=== PATIENT | male | born 1965 | race African-American/Black ===

== ENCOUNTER 2016-11-16 14:42 | Inpatient (IN) ==
--- NOTE | 2016-11-16 15:35 | Emergency Department Note ---
Disposition Clinical Impression: Cerebrovascular accident Qualifiers: CVA mechanism: unspecified Qualified Code(s): I63.9 - Cerebral infarction, unspecified Disposition: Admitted As Inpatient Condition: Fair Time of Disposition: 17:07 Neuro HPI - General Chief Complaint: ED Neuro Symptoms/Deficit Stated Complaint: Lightheaded, numbness/tingling R hand/leg Time Seen by Provider: 11/16/16 14:56 Source: patient, family Limitations: no limitations Nursing Notes Reviewed: Yes Vital Signs Reviewed: Yes - History of Present Illness HPI Narrative: Patient is a 50-year-old male who presents to [facility] ED with a chief complaint of right finger and right foot numbness. Rates he was pulling weeds outside at around 10 AM when he started feeling lightheaded. Also admits to cannabis use prior to this. States he then started feeling some numbness in his fingertips as well as toes on the right side. States he is not sure exactly when this started but it was somewhere between 10 AM and 12 AM. Denies any nausea, vomiting, fever or chills. Feels well otherwise. No weakness or difficulty with speech. Patient's spouse is with him and he does not want her to know that he smoked cannabis today. Patient states he has had 2 prior small strokes in the past and they presented similar to this. Patient did take a full dose aspirin today. Onset of Symptoms Date: 11/16/16 Symptom Onset Unknown: Yes History of same: Yes Severity: mild Quality: numbness Symptoms Improving: Yes Improves with: time Worsens with: none Context: gradual onset Associated symptoms: Reports: other (lightheaded). Denies: confusion, chest pain, cough, diaphoresis, fever/chills, headaches, loss of appetite, nausea/ vomiting, shortness of breath, syncope, weakness Treatments Prior to Arrival: Aspirin - Related Data Home Medications: Home Medications Medication Instructions Recorded Confirmed Albuterol Neb [Proventil Neb] 2.5 mg IH TID PRN 11/16/16 11/16/16 Albuterol Sulfate [Albuterol 2 puff IH Q4H PRN 11/16/16 11/16/16 Inhaler] Aspirin [Ecotrin] 325 mg PO DAILY 11/16/16 11/16/16 BuPROPion XL (24 HR) [Wellbutrin 150 mg PO DAILY 11/16/16 11/16/16 XL] Cetirizine HCl [Zyrtec] 10 mg PO DAILY 11/16/16 11/16/16 Clopidogrel [Plavix] 75 mg PO DAILY 11/16/16 11/16/16 Cyclobenzaprine [Flexeril] 10 mg PO HS PRN 11/16/16 11/16/16 Diltiazem HCl [Diltiazem 24Hr Cd] 240 mg PO DAILY 11/16/16 11/16/16 Fluticasone Propionate Nasal 100 mcg NS DAILY 11/16/16 11/16/16 [Flonase] Fluticasone/Salmeterol [Advair 2 each IH DAILY 11/16/16 11/16/16 100-50 Diskus] Glimepiride [Amaryl] 4 mg PO BID 11/16/16 11/16/16 Levothyroxine Sodium [Synthroid] 274 mcg PO QAM 11/16/16 11/16/16 Multivitamin [Multi-Day Vitamins] 1 each PO DAILY 11/16/16 11/16/16 [place]-3/Dha/Epa/Fish Oil [Fish Oil 1,000 mg PO DAILY 11/16/16 11/16/16 1,000 mg Softgel] Simvastatin [Zocor] 20 mg PO HS 11/16/16 11/16/16 Sitagliptin Phos/Metformin HCl 1 tab PO BID 11/16/16 11/16/16 [Janumet 50-1,000 mg Tablet] Tramadol HCl [Ultram] 50 mg PO Q4H PRN 11/16/16 11/16/16 Ubidecarenone [Co Q-10] 100 mg PO DAILY 11/16/16 11/16/16 Valsartan/Hydrochlorothiazide 1 each PO BID 11/16/16 11/16/16 [Diovan Hct 160-12.5 mg Tab] Allergies/Adverse Reactions: Allergies Allergy/AdvReac Type Severity Reaction Status Date / Time sulfamethoxazole Allergy Hives Verified 03/28/15 16:56 [From Bactrim] trimethoprim [From Bactrim] Allergy Hives Verified 03/28/15 16:56 atenolol AdvReac Palpitation Verified 03/28/15 16:56 s All systems ED: reviewed and negative except as stated. Past Medical History - Past Medical History Attestation: Yes The following information was validated with the patient. Source: patient Medical history: Reports: diabetes, hyperlipidemia, hypertension, thyroid disease Surgical history: Reports: other Psychiatric history: Reports: no psych history - Social History Smoking Status: Never smoker Smokeless Tobacco Status: No Alcohol use: Reports: occasionally Drug use: Reports: marijuana Physical Exam - General Limitations: no limitations General appearance: alert, in no apparent distress, obese - Head Head exam: atraumatic, normocephalic, normal inspection - Eye Eye exam: Present: normal appearance, PERRL, EOMI - ENT ENT exam: normal exam, normal oropharynx, mucous membranes moist - Neck Neck exam: Present: normal inspection, full ROM, trachea midline - Chest Chest inspection: Present: normal inspection, symmetric chest wall rise - Respiratory Respiratory exam: Present: normal lung sounds bilaterally - Cardiovascular Cardiovascular exam: Present: regular rate, normal rhythm, normal heart sounds - Abdominal Exam Abdominal exam: Present: soft, Non-Tender. Absent: tenderness, distention, guarding, rebound, rigidity - Extremities Exam Extremities exam: Present: normal inspection, full ROM. Absent: tenderness, pedal edema - Back Exam Back exam: Present: normal inspection, full ROM. Absent: tenderness - Neurological Exam Neurological exam: Present: alert - Psychiatric Psychiatric exam: Present: normal affect, normal mood - Skin Skin exam: Present: warm, dry, intact, normal color Course Course Narrative: Patient seen and examined. Lightheadedness and numbness in his right fingers and toes. No other neurologic deficits. NIH score of 1. Unknown exact last known well. Sometime between 10 AM and 12 AM. Patient is outside of the window for any TPA. With his just recent ingestion of cannabis at 9:30, suspect his symptoms could be caused from this. Will do full neurological evaluation. - Reevaluation(s) Reevaluation #1: Patient's labwork unremarkable. CT scan did show worsening small vessel ischemic changes that are worse compared to a CAT scan in 2009. An MRI is recommended. We will admit for CVA workup. I spoke with hospitalist Anant Chaves NP who has accepted patient for admission. Time: 17:06 Vital Signs Temperature 99.0 F 11/16/16 14:51 Pulse Rate 101 11/16/16 14:51 Respiratory Rate 18 11/16/16 14:51 Blood Pressure 162/95 11/16/16 14:51 O2 Sat by Pulse Oximetry 96 11/16/16 14:51 Temperature 99.0 F 11/16/16 14:51 Pulse Rate 67 11/16/16 16:35 Respiratory Rate 15 11/16/16 16:56 Blood Pressure 115/69 11/16/16 16:56 O2 Sat by Pulse Oximetry 93 11/16/16 16:35 Oxygen Delivery Oxygen Delivery Room Air Neuro Symptoms/Deficit - Medical Records Medical records reviewed: Yes I reviewed the patient's medical records. - Lab Data Lab results reviewed: Yes I reviewed the patient's lab results. Result diagrams: 11/16/16 15:35 11/16/16 15:35 Lab Results 11/16/16 11/16/16 11/16/16 Range/Units 14:48 15:35 15:35 WBC 7.4 (4.3-11.1) K/mcL RBC 5.10 (4.19-5.50) M/mcL Hgb 14.3 (12.9-16.9) g/dL Hct 44.0 (37.5-50.1) % MCV 86.3 (83.0-100.0) fL MCH 28.0 (28.0-33.3) pg MCHC 32.5 (31.6-35.5) g/dL RDW 12.6 (11.5-14.5) % Plt Count 248 (140-400) K/mcL MPV 9.6 (9.4-12.4) fL Immature Gran % 0.4 (0-4) % Seg Neutrophils % 69.0 % Lymphocytes % 20.2 % Monocytes % 8.2 % Eosinophils % 1.7 % Basophils % 0.5 % Neutrophils # 5.1 (1.6-8.9) K/mcL Lymphocytes # 1.5 (0.6-4.6) K/mcL Monocytes # 0.6 (0.0-1.3) K/mcL Eosinophils # 0.1 (0.0-0.6) K/mcL Basophils # 0.0 (0.0-0.2) K/mcL Immature Plt Fraction 2.9 (1.1-6.1) % PT 13.5 H (9.4-12.1) Seconds INR 1.2 APTT 30.8 (26.0-36.0) Seconds Sodium (136-145) mEq/L Potassium (3.5-4.5) mEq/L Chloride (98-109) mEq/L Carbon Dioxide (19-29) mEq/L BUN (8-26) mg/dL Creatinine (0.72-1.25) mg/dL Est GFR ( Amer) (> 60) Est GFR (Non-Af Amer) (> 60) BUN/Creatinine Ratio (6-26) Glucose (70-99) mg/dL POC Glucose 98 H (58-89) Calculated Osmolality (280-300) Calcium (8.6-10.8) mg/dL Troponin I (0-0.03) ng/mL 11/16/16 11/16/16 Range/Units 15:35 15:35 WBC (4.3-11.1) K/mcL RBC (4.19-5.50) M/mcL Hgb (12.9-16.9) g/dL Hct (37.5-50.1) % MCV (83.0-100.0) fL MCH (28.0-33.3) pg MCHC (31.6-35.5) g/dL RDW (11.5-14.5) % Plt Count (140-400) K/mcL MPV (9.4-12.4) fL Immature Gran % (0-4) % Seg Neutrophils % % Lymphocytes % % Monocytes % % Eosinophils % % Basophils % % Neutrophils # (1.6-8.9) K/mcL Lymphocytes # (0.6-4.6) K/mcL Monocytes # (0.0-1.3) K/mcL Eosinophils # (0.0-0.6) K/mcL Basophils # (0.0-0.2) K/mcL Immature Plt Fraction (1.1-6.1) % PT (9.4-12.1) Seconds INR APTT (26.0-36.0) Seconds Sodium 138 (136-145) mEq/L Potassium 4.0 (3.5-4.5) mEq/L Chloride 102 (98-109) mEq/L Carbon Dioxide 27 (19-29) mEq/L BUN 13 (8-26) mg/dL Creatinine 0.96 (0.72-1.25) mg/dL Est GFR ( Amer) > 60 (> 60) Est GFR (Non-Af Amer) > 60 (> 60) BUN/Creatinine Ratio 14 (6-26) Glucose 88 (70-99) mg/dL POC Glucose (58-89) Calculated Osmolality 286 (280-300) Calcium 9.8 (8.6-10.8) mg/dL Troponin I 0.00 (0-0.03) ng/mL - Radiology Data Radiology results reviewed: Yes I reviewed the patient's radiology results. Head CT 11/16/16 14:58 IMPRESSION: No hemorrhage or mass Mild periventricular and scattered frontal parietal white matter disease, likely due to small-vessel ischemic change, increased compared to prior study 2009. If acute on chronic disease is a clinical concern, MRI will need to be performed. D/ / Shlomo Brown MD / Shlomo Brown MD Interpreting Provider: Shlomo Brown MD Stroke Scale - Level of Consciousness LOC: Alert - LOC Questions LOC Questions: Answers both correctly - LOC Commands LOC Commands: Performs both correctly - Best Gaze Best Gaze: Normal - Visual Visual: No visual loss - Facial Palsy Facial Palsy: Normal - Motor Arms Motor Arm-Left: No drift for 10 seconds Motor Arm-Right: No drift for 10 seconds - Motor Legs Motor Leg-Left: No drift for 5 seconds Motor Leg-Right: No drift for 5 seconds - Limb Ataxia Limb Ataxia: Normal, No Ataxia - Sensory Sensory: Mild to moderate loss, "not as sharp" - Best Language Best Language: No aphasia - Dysarthria Dysarthria: Normal - Extinction and Inattention Extinction and Inattention: Normal - NIHSS Total Score NIHSS Total Score: 1 Critical Care Time Critical Care Time: Yes Total Critical Care Time: 35 Attestation: cc time managing cva Attestation Statement - Attestation Attestation: Patient was seen with resident physician. I reviewed the history, physical, assessment and plan, and agree with the findings. I also personally evaluated this patient and had [id number] time with this patient. 50-year-old male presents to the emergency department with lightheadedness and some numbness to the right hand. Patient states that he was pulling some weeds when he stood up and he had symptom onset. Patient became concerned because symptoms are similar to when he had several strokes in the past. He says he said 2-3 mild strokes previously. Patient also notes that his symptoms are confounded by the fact that he was smoking marijuana but would prefer his does not know. Typically however he says he does not get symptoms with marijuana and this is more consistent with his strokes in the past. Denies fevers chills shortness of breath chest pain or loss of consciousness. ED evaluation. Vital signs stable. ENT is unremarkable. Heart and lungs normal. Ab soft and nontender. 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 Neurologically patient is intact. I could not appreciate sensation difference from right to left when the patient was asked. Seems that this is stabilized. ED course CT scan head did reveal old strokes and what appears to be a potentially new area of concern though minimal. Labs did not reveal any acute abnormalities. We will admit the patient for further workup and treatment. Should be noted the patient was not a stroke protocol because symptoms are so minimal. He does not qualify for TPA or other emergent intervention. I agree with the resident physician assessment and plan.
[2016-11-16 15:44] LABS: Basophils % 0.5 %; Eosinophils # 0.1 K/mcL (0.0-0.6); Eosinophils % 1.7 %; Hemoglobin 14.3 g/dL (12.9-16.9); Immature Granulocytes % 0.4 % (0-4); Immature Platelets 2.9 % (1.1-6.1); Lymphocytes # 1.5 K/mcL (0.6-4.6); Lymphocytes % 20.2 %; Mean Corpuscular HGB Conc 32.5 g/dL (31.6-35.5); Mean Corpuscular Volume 86.3 fL (83.0-100.0); Mean Platelet Volume 9.6 fL (9.4-12.4); Monocytes # 0.6 K/mcL (0.0-1.3); Monocytes % 8.2 %; Neutrophils # 5.1 K/mcL (1.6-8.9); Platelet Count 248 K/mcL (140-400); Red Cell Distribution Width 12.6 % (11.5-14.5)
[2016-11-16 15:48] LABS: INR 1.2; Prothrombin Time 13.5 Seconds (9.4-12.1)
[2016-11-16 15:51] LABS: Activated Partial Thrombo Time 30.8 Seconds (26.0-36.0)
[2016-11-16 15:56] LABS: BUN/Creatinine Ratio 14 (6-26); Blood Urea Nitrogen 13 mg/dL (8-26); Calcium 9.8 mg/dL (8.6-10.8); Carbon Dioxide 27 mEq/L (19-29); Chloride 102 mEq/L (98-109); Glucose 88 mg/dL (70-99); Osmolality,Calculated 286 (280-300); Sodium 138 mEq/L (136-145); eGFR For African Americans > 60 (> 60); eGFR For Non-African Americans > 60 (> 60)
[2016-11-16 16:59] LABS: Amphetamine Screen,Urine Negative ng/mL (Cutoff=1000); Barbiturate Screen,Urine Negative ng/mL (Cutoff=200); Benzodiazepines Screen,Urine Negative ng/mL (Cutoff=200); Cannabinoid Screen,Urine Positive ng/mL (Cutoff = 50); Cocaine Screen,Urine Negative ng/mL (Cutoff= 300); Opiate Screen,Urine Negative ng/mL (Cutoff=300); Phencyclidine Screen,Urine Negative ng/mL (Cutoff=25)
[2016-11-16] MEDS ORDERED: Naloxone 0.4 MG/ML INJ IVP PRN (17:28)
[2016-11-16] MEDS ORDERED: Acetaminophen 325 MG TABLET PO PRN (17:28)
[2016-11-16] MEDS ORDERED: Albuterol 2.5 MG/3 ML NEBULIZER IH PRN (17:41)
[2016-11-16] MEDS ORDERED: traMADol 50 MG TABLET PO PRN (17:41)
--- NOTE | 2016-11-16 18:18 | Internal Med History&Physical ---
Date of Encounter: 11/16/16 Time of Encounter: 17:45 Assessment and Plan (1) TIA (transient ischemic attack) Current visit: Yes Status: Suspected Patient presenting with right hand numbness along with right foot numbness and weakness. Possible TIA. He does have a history of TIA and stroke. CT scan of the head shows chronic small vessel ischemic changes which have increased compared to prior study in 2009. [address] place patient in the hospital for observation. TIA workup including carotid Dopplers, 2-D echocardiogram and MRI of the brain. Place patient on telemetry. Moderate risk for complications. Qualifiers: Transient cerebral ischemia type: other Qualified Code(s): G45.8 - Other transient cerebral ischemic attacks and related syndromes (2) Essential hypertension Current visit: Yes Status: Chronic Uncontrolled. Resume home medications. Monitor vital signs closely. Adjust antihypertensive regimen accordingly. (3) Diabetes mellitus, type 2 Current visit: Yes Status: Chronic Patient with chronic diabetes mellitus type 2. We will place patient on diabetic diet and sliding scale insulin. Check A1c level. Qualifiers: Diabetes mellitus complication status: without complication Diabetes mellitus intermediate frame tender insulin use: without intermediate frame tender use Qualified Code(s): E11.9 - Type 2 diabetes mellitus without complications (4) Lightheadedness Current visit: Yes Status: Acute Check orthostatic blood pressure. Could be related to recent marijuana use. Internal Medicine - H&P: HPI Chief complaint: Right hand numbness and some weakness in right leg Admitted From: Emergency Dept Plans for Post Hospital Care: Home History of present illness: Mr. Harrison is a 50 year old male patient with a history of prior strokes and mini strokes presented to the ER with complaints of lightheadedness followed by numbness in his right hand along with some weakness in his right foot. He was feeling fine when he woke up this morning. He apparently smoked some marijuana and was working in his garden wearing weeds when he felt lightheaded. This lasted for a few seconds and then he began to have some numbness in his right hand. The patient does have a history of diabetes but has no history of diabetic neuropathy. She says that the numbness spread from medial 3 fingers down to his entire hand. It is still present currently. It is associated with some mild weakness. He also has some numbness in his right foot along with some weakness. He denies any visual changes. No speech deficits. No facial droop. Past Med Surg Social Fam HX - Past Medical History Attestation: Yes The following information was validated with the patient. Source: patient Medical history: diabetes, hyperlipidemia, hypertension, thyroid disease Psychiatric history: no psych history - Past Surgical History Surgical History: other - Social History Smoking Status: Never smoker Smokeless Tobacco Status: No Alcohol use: occasionally Drug use: marijuana - Additional Family History Additional family history: Reviewed and found to be noncontributory at this time Internal Medicine - H&P: Meds Albuterol Neb [Proventil Neb] 2.5 mg IH TID PRN 11/16/16 [History] Albuterol Sulfate [Albuterol Inhaler] 2 puff IH Q4H PRN 11/16/16 [History] Aspirin [Ecotrin] 325 mg PO DAILY 11/16/16 [History] BuPROPion XL (24 HR) [Wellbutrin XL] 150 mg PO DAILY 11/16/16 [History] Cetirizine HCl [Zyrtec] 10 mg PO DAILY 11/16/16 [History] Clopidogrel [Plavix] 75 mg PO DAILY 11/16/16 [History] Cyclobenzaprine [Flexeril] 10 mg PO HS PRN 11/16/16 [History] Diltiazem HCl [Diltiazem 24Hr Cd] 240 mg PO DAILY 11/16/16 [History] Fluticasone Propionate Nasal [Flonase] 100 mcg NS DAILY 11/16/16 [History] Fluticasone/Salmeterol [Advair 100-50 Diskus] 2 each IH DAILY 11/16/16 [History] Glimepiride [Amaryl] 4 mg PO BID 11/16/16 [History] Levothyroxine Sodium [Synthroid] 274 mcg PO QAM 11/16/16 [History] Multivitamin [Multi-Day Vitamins] 1 each PO DAILY 11/16/16 [History] [place]-3/Dha/Epa/Fish Oil [Fish Oil 1,000 mg Softgel] 1,000 mg PO DAILY 11/16/16 [History] Simvastatin [Zocor] 20 mg PO HS 11/16/16 [History] Sitagliptin Phos/Metformin HCl [Janumet 50-1,000 mg Tablet] 1 tab PO BID [History] Tramadol HCl [Ultram] 50 mg PO Q4H PRN 11/16/16 [History] Ubidecarenone [Co Q-10] 100 mg PO DAILY 11/16/16 [History] Valsartan/Hydrochlorothiazide [Diovan Hct 160-12.5 mg Tab] 1 each PO BID [History] Allergies sulfamethoxazole [From Bactrim] Allergy (Verified 03/28/15 16:56) Hives trimethoprim [From Bactrim] Allergy (Verified 03/28/15 16:56) Hives atenolol Adverse Reaction (Verified 03/28/15 16:56) Palpitations All Systems PM: A 10-system review of systems was performed and is negative for pertinent findings except as documented above in the HPI. - Constitutional Constitutional: no chills, no fever(s), no night sweats - EENT Eyes: no change in vision, no discharge, no pain, no photophobia Ears: no ear discharge, no ear pain, no tinnitus Nose, mouth and throat: no dysphagia, no nasal discharge, no neck pain, no sore throat - Cardiovascular Cardiovascular ROS IM: no chest pain, no diaphoresis, no dyspnea, no lightheadedness, no palpitations, no syncope - Respiratory Respiratory: no cough, no dyspnea, no wheezing, no excessive phlegm production - Gastrointestinal Gastrointestinal: no abdominal pain, no diarrhea, no hematemesis, no hematochezia, no melena, no nausea, no vomiting - Musculoskeletal Musculoskeletal ROS IM: no numbness, no tingling - Neurological Neurological ROS: focal weakness, numbness, no confusion, no convulsions, no tingling, no tremor(s) - Hematologic/Lymphatic Hematologic/Lymphatic: no easy bruising - Constitutional Vitals: Temp Pulse Resp BP Pulse Ox 98.6 F 103 18 138/90 93 11/16/16 17:31 11/16/16 17:31 11/16/16 17:31 11/16/16 17:31 11/16/16 17:31 General appearance: Present: cooperative, A&O X 3, pleasant, obese, answers questions appropriately - Eye Eye exam: Present: EOMI, PERRL, conjuntiva pink, sclera anicteric - Neck Neck exam general surgery: Present: supple, trachea midline. Absent: lymphadenopathy - Respiratory Respiratory exam: Present: CTAB. Absent: accessory muscle use, rales, rhonchi, wheezes - Cardiovascular Cardiovascular exam: Present: RRR, +S1, +S2. Absent: diastolic murmur, gallop, rubs, systolic murmur - GI/Abdominal GI/Abdominal exam: Present: normal bowel sounds, soft, no peritoneal signs. Absent: distended, tenderness - Extremities Exam Extremities exam: Present: warm, radial pulses palpable and symetrical. Absent : calf tenderness, cyanotic, pedal edema - Neurological Exam Neurological exam: Present: CN II-XII intact, oriented X3, no focal deficits, strengths equal and symetr throughout. Absent: facial droop, speech deficit Additional comments: Numbness over his palmar surface of right hand - Skin Skin exam: Present: dry, intact Internal Med - H&P Results - Labs CBC & Chem 7: 11/16/16 15:35 11/16/16 15:35
[2016-11-16] MEDS: hydroCHLOROthiazide 25 MG TABLET PO SCH (20:40)
[2016-11-16] MEDS: Valsartan 160 MG TABLET PO SCH (20:59)
[2016-11-16] MEDS ORDERED: Valsartan 160 MG TABLET PO SCH (21:00)
[2016-11-16] MEDS ORDERED: D5% in Water 1,000 ML IVC PRN (21:23)
[2016-11-16] MEDS ORDERED: *HR* Dextrose 50 % in Water (Syg) 50 ML SYRINGE IVP PRN (21:23)
[2016-11-16] MEDS ORDERED: Dextrose Gel 15 GM PO PRN ×2 (21:23)
[2016-11-16] MEDS: Insulin LISPRO 300 UNITS/3 ML VIAL SQ SCH (22:09)
[2016-11-17 04:29] LABS: Chol/HDL Ratio 3.8 (0-4.9)
[2016-11-17] MEDS: Insulin LISPRO 300 UNITS/3 ML VIAL SQ SCH ×4 (07:28→21:07)
[2016-11-17] MEDS ORDERED: Budesonide/Formoterol 80/4.5 MDI IH SCH (09:00)
[2016-11-17] MEDS: Diltiazem CD (24hr) 240 MG CAPSULE PO SCH (09:53)
[2016-11-17] MEDS: Aspirin Enteric Coated 325 MG Tablet PO SCH (09:53)
[2016-11-17] MEDS: Valsartan 160 MG TABLET PO SCH ×2 (09:54→19:59)
[2016-11-17] MEDS: Loratadine 10 MG TABLET PO SCH (09:54)
[2016-11-17] MEDS: hydroCHLOROthiazide 25 MG TABLET PO SCH ×2 (09:55→19:59)
[2016-11-17] MEDS: Multivit/Ca/Min/Fe/FA 1 TAB TABLET PO SCH (09:57)
[2016-11-17] MEDS: (Ubidecarenone [Co Q-10] 100 MG) PO SCH (09:57)
[2016-11-17] MEDS: (Omega-3/Dha/Epa/Fish Oil [Fish Oil 1,000 Mg Softgel]) PO SCH (10:00)
[2016-11-17] MEDS: BuPROPion XL (24 HR) 150 MG TABLET PO SCH (10:03)
[2016-11-17] MEDS: Fluticasone Propionate Nasal 50 MCG/SPRAY BOTTLE NS SCH (10:29)
[2016-11-17] MEDS ORDERED: Perflutren Lipid Microsphere 1.3 ML in 0.9 % Sodium Chloride 8.7 ML IVP ONE (12:19)
--- NOTE | 2016-11-17 17:03 | Neurology - Consult Note ---
Date of Encounter: 11/17/16 Time of Encounter: 17:00 Assessment and Plan (1) Cerebrovascular accident Current Visit: Yes Status: Acute Patient has developed another episode of small vessel lacunar infarct, this time involving the left pontine region, causing right sided paresthesia. This is still small vessel etiology. Will keep him on Aspirin 325mg and Plavix 75mg daily for secondary stroke prevention. Pursue aggressive risk factor modification. Weight loss advised. Continue statin therapy. Patient is also advised to follow up with PCP, outpatient sleep stud recommended as well. Echocardiography showed normal LVEF of 60%, no regional wall motion abnormality , no significant valcular disease. Carotid artery duppler study pending. Qualifiers: CVA mechanism: unspecified Qualified Code(s): I63.9 - Cerebral infarction, unspecified History of Present Illness Chief complaint: right finger and leg numbness HPI: Mr. Harrison is a 50 year old male with PMH significant for recurrent small vessel lacunar infarct, HTN, DM, morbid obesity who presented with acute onset of numbness, tingling to the right hand and leg. This occurred at about 10am this morning. started feeling numb to the right finger and leg. Has had similar presentation in the past. Has has diagnosis of lacunar infarct during 2009 and 2012 both diagnosed as having lacunar infarct. Has been taking aspirin 81mg and Plavix 75mg daily. No speech difficulty. No facial weakness or numbness. Past Med Surg Social Fam HX - Past Medical History Medical history: diabetes, hyperlipidemia, hypertension, thyroid disease Psychiatric history: no psych history - Past Surgical History Surgical History: other - Social History Smoking Status: Never smoker Smokeless Tobacco Status: No Alcohol use: occasionally Drug use: marijuana - Family History Mother Living Status: Age at : 61 Cause of : ms Hx Family Cardiac Disorders: Yes Hx Family Respiratory Disorders: No Hx Family Cancer: Yes Hx Family GI Disorders: No Hx Family Genitourinary Disorders: No Hx Family Endocrine Disorder: Yes Hx Family Musculoskeletal Disorders: No Hx Family Neuromuscular Disorders: Yes Hx Family Neurologic Disorders: Yes Hx Family HEENT Disorders: No Hx Family Autoimmune Disorders: No Hx Family Reproductive Disorders: No Hx Family Psychosocial Disorders: No Hx Family Medical Disorders: No Medications and Allergies Albuterol Neb [Proventil Neb] 2.5 mg IH TID PRN 11/16/16 [History] Albuterol Sulfate [Albuterol Inhaler] 2 puff IH Q4H PRN 11/16/16 [History] Aspirin [Ecotrin] 325 mg PO DAILY 11/16/16 [History] BuPROPion XL (24 HR) [Wellbutrin XL] 150 mg PO DAILY 11/16/16 [History] Cetirizine HCl [Zyrtec] 10 mg PO DAILY 11/16/16 [History] Clopidogrel [Plavix] 75 mg PO DAILY 11/16/16 [History] Cyclobenzaprine [Flexeril] 10 mg PO HS PRN 11/16/16 [History] Diltiazem HCl [Diltiazem 24Hr Cd] 240 mg PO DAILY 11/16/16 [History] Fluticasone Propionate Nasal [Flonase] 100 mcg NS DAILY 11/16/16 [History] Fluticasone/Salmeterol [Advair 100-50 Diskus] 2 each IH DAILY 11/16/16 [History] Glimepiride [Amaryl] 4 mg PO BID 11/16/16 [History] Levothyroxine Sodium [Synthroid] 274 mcg PO QAM 11/16/16 [History] Multivitamin [Multi-Day Vitamins] 1 each PO DAILY 11/16/16 [History] [place]-3/Dha/Epa/Fish Oil [Fish Oil 1,000 mg Softgel] 1,000 mg PO DAILY 11/16/16 [History] Simvastatin [Zocor] 20 mg PO HS 11/16/16 [History] Sitagliptin Phos/Metformin HCl [Janumet 50-1,000 mg Tablet] 1 tab PO BID [History] Tramadol HCl [Ultram] 50 mg PO Q4H PRN 11/16/16 [History] Ubidecarenone [Co Q-10] 100 mg PO DAILY 11/16/16 [History] Valsartan/Hydrochlorothiazide [Diovan Hct 160-12.5 mg Tab] 1 each PO BID [History] Allergies sulfamethoxazole [From Bactrim] Allergy (Verified 03/28/15 16:56) Hives trimethoprim [From Bactrim] Allergy (Verified 03/28/15 16:56) Hives atenolol Adverse Reaction (Verified 03/28/15 16:56) Palpitations All Systems: A 10-system review of systems was performed and is negative for pertinent findings except as documented above in the HPI. Physical Examination - Vital Signs Vital Signs: Initial Vital Signs Temp Pulse Resp BP Pulse Ox 99.0 F 101 18 162/95 96 11/16/16 14:51 11/16/16 14:51 11/16/16 14:51 11/16/16 14:51 11/16/16 14:51 - Constitutional General appearance: comfortable - Neurologic Sensorimotor examination: intact Detailed motor examination: full strength in all major muscle groups Motor examination - right side: 5/5: deltoids, biceps, triceps, wrist flexion, wrist extension, camp nurse, hip flexors, tibialis Anterior, quadriceps, toe extension (EHL), plantarflexion Motor examination - left side: 5/5: deltoids, biceps, triceps, wrist flexion, wrist extension, hip flexors, camp nurse, quadriceps, tibialis Anterior, toe extension (EHL), plantarflexion Detailed sensory examination: intact Posture: other (none) Reflexes: Biceps: 1+, Triceps: 1+, Brachioradialis: 1+, Patella: 1+, Achilles: 1 + Mental Status Examination: awake, alert, oriented to person, oriented to place, oriented to time, follows commands appropriately, answers questions appropriately, no agnosia, no aphasia, no aproxia Cranial nerve examination: PERRL, EOMI, visual mclaughlin intact, corneal reflexes brisk symmetrically, sensory to face intact, mastication intact, no facial asymmetry is present, no dysarthria, hearing is intact symmetrically, soft palate elevates bilaterally upon phonation, gag reflex intact, flexes SCM and trapezius muscles symmetrically with full power, tongue protrudes midline, no atrophy or facial fasiculations present Results - Laboratory Findings CBC and BMP: 11/16/16 15:35 11/16/16 15:35 Abnormal lab findings: Abnormal lab results PT 13.5 Seconds (9.4-12.1) H 11/16/16 15:35 POC Glucose 109 (58-89) H 11/17/16 16:33 Triglycerides 233 mg/dL (< 150) H 11/17/16 03:51 VLDL Cholesterol, Calc 47 mg/dL (< 31) H 11/17/16 03:51 HDL Cholesterol 31 mg/dL (40-59) L 06/26/17 03:51 U Marijuana (THC) Screen Positive ng/mL (Cutoff = 50) H 11/16/16 16:41 Consult Discharge Plan - Plan Referrals: Maggie Navarro MD [Primary Care Provider] -
--- NOTE | 2016-11-17 17:39 | Internal Med Progress Note ---
Date of Encounter: 11/17/16 Time of Encounter: 09:00 - Assessment and plan (1) Cerebrovascular accident Current Visit: Yes Status: Acute Assessment and plan: Patient has prior CVA 2. Symptoms include right hand and foot paresthesia and right leg weakness. Onset one day ago. Patient is still able to ambulate. There is no facial involvement and no speech or vision changes. He has been seen by neurology. We need aggressive risk factor reduction. Patient will continue his aspirin 325 mg of Plavix 75 mg daily patient should start an aggressive weight loss and exercise program. He will also continue his statin therapy. Echocardiogram showed normal LVEF 60% and no regional wall motion abnormality, no significant vascular disease. Carotids normal bilaterally. Brain MRI 11/16/16 17:38 IMPRESSION: 1. Acute 8 mm infarct within the dorsal aspect of the jennifer just anterolateral to the expected location of the left medial longitudinal fasciculus. 2. No acute intracranial hemorrhage. 3. Multiple remote infarcts within the periventricular and deep white matter of both hemispheres. 4. Remote hemorrhage within the subcortical white matter of the right frontal lobe. D/ / 11/17/2016 09:01:50 Carlos Griggs MD / [email or web address] Interpreting Provider: Carlos Griggs MD Qualifiers: CVA mechanism: unspecified Qualified Code(s): I63.9 - Cerebral infarction, unspecified (2) Essential hypertension Current Visit: Yes Status: Chronic Assessment and plan: Chronic. Well controlled in inpatient setting. Continue home medications. (3) Diabetes mellitus, type 2 Current Visit: Yes Status: Chronic Assessment and plan: A1c was 7.6 one month ago. Continue Accu-Cheks before meals at bedtime sliding scale insulin. Continue diabetic diet. 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 - Time Spent With Patient less than 15 minutes - Subjective Interval history: Patient was seen and examined at 9 AM. He reports feeling lightheaded when bending over yesterday. He says he had the last 3 fingers on his right hand were numb and tingly, this was concerning for him because these are the same symptoms he had his prior CVA. Prior CVA was in 2009, one prior to that, as well. The symptoms lasted approximately one day, and now his whole hand and his right foot or tingling and he reports right leg weakness as well. He has no discernible weakness on physical exam. His strength are equal bilaterally both upper and lower extremities. His speech is clear, there is no nystagmus, there is no sensory loss. Patient was seen by Dr. Cardenas and will continue his aspirin and Plavix. Echo was normal, carotids were within normal limits. Will watch patient overnight and most likely discharge in the morning. - Constitutional Vitals: Temp Pulse Resp BP Pulse Ox 98.4 F 97 16 113/74 94 11/17/16 15:32 11/17/16 15:32 11/17/16 15:32 11/17/16 15:32 11/17/16 15:32 General appearance: Present: cooperative, A&O X 3, pleasant, obese, answers questions appropriately - Head Head exam: Present: normal inspection - Eye Eye exam: Present: EOMI, normal appearance, conjuntiva pink. Absent: nystagmus - ENT ENT exam: Present: mucous membranes moist, normal exam - Neck Neck exam general surgery: Present: normal inspection. Absent: lymphadenopathy , tenderness - Respiratory Respiratory exam: Present: decreased breath sounds, CTAB. Absent: chest wall tenderness, rales, respiratory distress, rhonchi, stridor, wheezes - Cardiovascular Cardiovascular exam: Present: RRR, +S1, +S2. Absent: diastolic murmur, systolic murmur - GI/Abdominal GI/Abdominal exam: Present: distended, normal bowel sounds, soft. Absent: hepatomegaly, tenderness - Extremities Exam Extremities exam: Present: normal capillary refill, warm, radial pulses palpable and symetrical. Absent: pedal edema, tenderness - Neurological Exam Neurological exam: Present: alert, normal gait, oriented X3, no focal deficits, strengths equal and symetr throughout. Absent: motor sensory deficit, pronater drift, facial droop, speech deficit - Skin Skin exam: Present: dry, normal color, warm. Absent: rash Internal Medicine: Result - Labs CBC & Chem 7: 11/16/16 15:35 11/16/16 15:35 - ABG Interpretation ABG results: PT/INR, D-dimer PT 13.5 Seconds (9.4-12.1) H 11/16/16 15:35 Consult Discharge Plan - Plan Referrals: Maggie Navarro MD [Primary Care Provider] -
[2016-11-18] MEDS: BuPROPion XL (24 HR) 150 MG TABLET PO SCH (08:01)
[2016-11-18] MEDS: hydroCHLOROthiazide 25 MG TABLET PO SCH (08:02)
[2016-11-18] MEDS: Aspirin Enteric Coated 325 MG Tablet PO SCH (08:03)
[2016-11-18] MEDS: Loratadine 10 MG TABLET PO SCH (08:03)
[2016-11-18] MEDS: Valsartan 160 MG TABLET PO SCH (08:03)
[2016-11-18] MEDS: Diltiazem CD (24hr) 240 MG CAPSULE PO SCH (08:03)
[2016-11-18] MEDS: Multivit/Ca/Min/Fe/FA 1 TAB TABLET PO SCH (08:03)
[2016-11-18] MEDS: Fluticasone Propionate Nasal 50 MCG/SPRAY BOTTLE NS SCH (08:03)
[2016-11-18] MEDS: Insulin LISPRO 300 UNITS/3 ML VIAL SQ SCH ×2 (08:04→12:27)
[2016-11-18 08:34] LABS: BUN/Creatinine Ratio 11 (6-26); Blood Urea Nitrogen 13 mg/dL (8-26); Calcium 10.4 mg/dL (8.6-10.8); Carbon Dioxide 27 mEq/L (19-29); Chloride 102 mEq/L (98-109); Glucose 170 mg/dL (70-99); Osmolality,Calculated 292 (280-300); Potassium 4.2 mEq/L (3.5-4.5); Sodium 139 mEq/L (136-145); eGFR For African Americans > 60 (> 60); eGFR For Non-African Americans > 60 (> 60)
[2016-11-18 09:01] LABS: Basophils # 0.1 K/mcL (0.0-0.2); Basophils % 0.7 %; Eosinophils # 0.3 K/mcL (0.0-0.6); Eosinophils % 3.4 %; Hematocrit 49.8 % (37.5-50.1); Immature Granulocytes % 0.6 % (0-4); Lymphocytes # 2.6 K/mcL (0.6-4.6); Lymphocytes % 26.1 %; Mean Corpuscular HGB Conc 33.7 g/dL (31.6-35.5); Mean Corpuscular Hemoglobin 29.1 pg (28.0-33.3); Mean Corpuscular Volume 86.3 fL (83.0-100.0); Mean Platelet Volume 10.3 fL (9.4-12.4); Monocytes # 0.8 K/mcL (0.0-1.3); Monocytes % 7.9 %; Neutrophils # 6.2 K/mcL (1.6-8.9); Platelet Count 286 K/mcL (140-400); Red Blood Count 5.77 M/mcL (4.19-5.50); Red Cell Distribution Width 12.7 % (11.5-14.5); Segmented Neutrophils % 61.3 %
[2016-11-18 09:02] LABS: Hemoglobin 16.8 g/dL (12.9-16.9)
[2016-11-18] MEDS: (Ubidecarenone [Co Q-10] 100 MG) PO SCH (10:25)
[2016-11-18] MEDS: (Omega-3/Dha/Epa/Fish Oil [Fish Oil 1,000 Mg Softgel]) PO SCH (10:25)
--- NOTE | 2016-11-18 12:59 | Neurology Progress Note ---
Date of Encounter: 11/18/16 Time of Encounter: 12:57 Assessment and Plan (1) Cerebrovascular accident Current Visit: Yes Status: Acute Continue Aspirin 325mg and plavix 75mg daily. Risk factor modification. Continue statin therapy, weight loss and sleep study as an outpatient via PCP Qualifiers: CVA mechanism: unspecified Qualified Code(s): I63.9 - Cerebral infarction, unspecified Subjective Principal diagnosis: CVA Interval history: Patient seen and examined. Patient is asymptomatic. Completed carotid artery duplex and preliminary reports was read normal study. Objective - Constitutional Vitals: Temp Pulse Resp BP Pulse Ox 97.6 F 104 16 109/72 94 11/18/16 07:07 11/18/16 07:07 11/18/16 07:07 11/18/16 07:07 11/18/16 08:00 - Neurological Exam Sensorimotor examination: Present: intact Motor Examination: Present: full strength in all major muscle groups Motor examination - left side: 5/5: deltoids, biceps, triceps, wrist flexion, wrist extension, hip flexors, senior ruby developer, quadriceps, tibialis Anterior, toe extension (EHL), plantarflexion Sensation intact: Present: intact Posture: Present: other (none) Mental Status Examination: Present: awake, alert, oriented to person, oriented to place, oriented to time, follows commands appropriately, answers questions appropriately, no agnosia, no aphasia, no aproxia Cranial nerve examination: Present: PERRL, EOMI, visual mclaughlin intact, corneal reflexes brisk symmetrically, sensory to face intact, mastication intact, no facial asymmetry is present, no dysarthria, hearing is intact symmetrically, soft palate elevates bilaterally upon phonation, gag reflex intact, flexes SCM and trapezius muscles symmetrically with full power, tongue protrudes midline, no atrophy or facial fasiculations present Results - Laboratory Findings CBC and BMP: 11/18/16 07:33 11/18/16 07:33 Abnormal lab findings: Abnormal lab results RBC 5.77 M/mcL (4.19-5.50) H 11/18/16 07:33 PT 13.5 Seconds (9.4-12.1) H 11/16/16 15:35 Glucose 170 mg/dL (70-99) H 11/18/16 07:33 POC Glucose 177 (58-89) H 11/17/16 20:22 Triglycerides 233 mg/dL (< 150) H 11/17/16 03:51 VLDL Cholesterol, Calc 47 mg/dL (< 31) H 11/17/16 03:51 HDL Cholesterol 31 mg/dL (40-59) L 11/17/16 03:51 U Marijuana (THC) Screen Positive ng/mL (Cutoff = 50) H 11/16/16 16:41 Consult Discharge Plan - Plan Referrals: Brigette Luna CNP [Advanced Practice Nurse] - 11/26/16 8:20 am Maggie Navarro MD [Primary Care Provider] -
--- NOTE | 2016-11-18 14:24 | Discharge Summary ---
Date of Encounter: 11/18/16 Time of Encounter: 13:00 - Discharge Diagnosis (1) Cerebrovascular accident Priority: Primary Status: Acute Comments: Patient with acute infarct to jennifer. Patient with continued numbness of his right hand and foot however no focal neurological weakness is present. Seen and evaluated by occupational and physical therapy both to fumes from had no needs. Neurology with recommendation of continued aggressive risk factor modification. Qualifiers: CVA mechanism: unspecified Qualified Code(s): I63.9 - Cerebral infarction, unspecified (2) Essential hypertension Priority: Secondary Status: Chronic Comments: Mildly hypertensive upon arrival, normotensive on day of discharge. Patient is on Diovan on at home, recommend continued daily blood pressure checks at home, keeping a log, and following up outpatient. 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 use Qualified Code(s): E11.9 - Type 2 diabetes mellitus without complications (4) Lightheadedness Priority: Primary Status: Resolved (5) Morbid obesity with BMI of 40.0-44.9, adult Priority: Secondary Status: Chronic Comments: Lifestyle changes - Discharge Medications Home Medications: Albuterol Neb [Proventil Neb] 2.5 mg IH TID PRN 11/16/16 [History] Albuterol Sulfate [Albuterol Inhaler] 2 puff IH Q4H PRN 11/16/16 [History] Aspirin [Ecotrin] 325 mg PO DAILY 11/16/16 [History] BuPROPion XL (24 HR) [Wellbutrin Xl] 150 mg PO DAILY 11/16/16 [History] Cetirizine HCl [Zyrtec] 10 mg PO DAILY 11/16/16 [History] Clopidogrel [Plavix] 75 mg PO DAILY 11/16/16 [History] Cyclobenzaprine [Flexeril] 10 mg PO HS PRN 11/16/16 [History] Diltiazem HCl [Diltiazem 24Hr Cd] 240 mg PO DAILY 11/16/16 [History] Fluticasone Propionate Nasal [Flonase] 100 mcg NS DAILY 11/16/16 [History] Fluticasone/Salmeterol [Advair 100-50 Diskus] 2 each IH DAILY 11/16/16 [History] Glimepiride [Amaryl] 4 mg PO BID 11/16/16 [History] Levothyroxine Sodium [Synthroid] 274 mcg PO QAM 11/16/16 [History] Multivitamin [Multi-Day Vitamins] 1 each PO DAILY 11/16/16 [History] [place]-3/Dha/Epa/Fish Oil [Fish Oil 1,000 mg Softgel] 1,000 mg PO DAILY 11/16/16 [History] Simvastatin [Zocor] 20 mg PO HS 11/16/16 [History] Sitagliptin Phos/Metformin HCl [Janumet 50-1,000 mg Tablet] 1 tab PO BID [History] Tramadol HCl [Ultram] 50 mg PO Q4H PRN 11/16/16 [History] Ubidecarenone [Co Q-10] 100 mg PO DAILY 11/16/16 [History] Valsartan/Hydrochlorothiazide [Diovan Hct 160-12.5 mg Tab] 1 each PO BID [History] Allergies/Adverse Reactions: Allergies sulfamethoxazole [From Bactrim] Allergy (Verified 03/28/15 16:56) Hives trimethoprim [From Bactrim] Allergy (Verified 03/28/15 16:56) Hives atenolol Adverse Reaction (Verified 03/28/15 16:56) Palpitations Date of admission: 11/17/16 13:14 Primary care physician: Maggie Navarro, Consults: 11/17/16 11:57 Consult to Neurology [CONS] Routine Consulting Provider: Neurology [facility] Reason for Consult: Infarct on MRI. Pt has CVA symptoms. Prior history. Time Notified: 11:58 Call Completed: Yes 11/17/16 11:59 Consult to Occupational Therapy [CONS] Routine Comment: Evaluate, develop and implement POC Reason for Consult: CVA. Evaluation Consult to Physical Therapy [CONS] Routine Comment: Evaluate, develop and implement POC Reason for Consult: CVA. Evaluation Discharging clinician: Siria Paz Anticipated date of discharge: 11/18/16 - Patient Status Disposition: Home, Self-Care Condition: Fair Functional capacity at discharge: independent ambulation Overall status at discharge: patient is progressing back to baseline - Discharge Instructions Instructions: Diabetes Mellitus Type 2 in Adults (DC), Ischemic Stroke (DC) Follow Up With: Brigette Luna CNP [Advanced Practice Nurse] - 11/26/16 8:20 am Maggie Navarro MD [Primary Care Provider] - Additional Instructions: Follow-up with primary care provider as scheduled - Diet and Activity Activity: increase activity as tolerated Diet: diabetic diet, low fat, low cholesterol, low salt diet Hospital course: Mr. Harrison is a 50 year old male with past medical history of prior CVAs, diabetes , hyperlipidemia, hypertension, hypothyroidism, marijuana abuse, morbid obesity. Patient presented to the emergency department chief complaint of lightheadedness that was followed by numbness in his right hand as well as weakness in his right foot. Patient stating he was fine when he woke up in the morning then he proceeded to smoke marijuana and then when he went out to work in his garden, he started to feel lightheaded. Patient stating lightheadedness lasted for a few minutes but then he began to have numbness in his right hand. No history of diabetic neuropathy. Patient stating the numbness spread from the medial 3 fingers down to his entire hand and was associated with mild weakness. Patient also endorsed numbness on his right foot along with some mild weakness. Patient denied any visual changes or speech deficits or facial asymmetry. Workup in the emergency department unremarkable. Head CT negative. Patient was initially borderline hypertensive. He was admitted to the hospitalist service for further evaluation and management. Brain MRI revealing acute infarct to dorsal aspect of the jennifer as well as multiple remote infarcts and a remote hemorrhage to the right frontal lobe. Carotid duplex negative. Echocardiogram unremarkable with ejection fraction of 60% and mild diastolic dysfunction. Neurology was brought on board who recommended continuing his current medical management with aspirin, Plavix, statin as well as aggressive risk factor modification including weight loss and abstinence from marijuana. He was normotensive on day of discharge. He was seen and evaluated by occupational and physical therapy both of whom surmise he had no needs. 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 He had an upright and steady gait. He was discharged home in stable condition with close outpatient follow-up recommended. ITS Impressions Head CT 11/16/16 14:58 IMPRESSION: No hemorrhage or mass Mild periventricular and scattered frontal parietal white matter disease, likely due to small-vessel ischemic change, increased compared to prior study 2009. If acute on chronic disease is a clinical concern, MRI will need to be performed. D/ / Shlomo Brown MD / Shlomo Brown MD Interpreting Provider: Shlomo Brwon MD Brain MRI 11/16/16 17:38 IMPRESSION: 1. Acute 8 mm infarct within the dorsal aspect of the jennifer just anterolateral to the expected location of the left medial longitudinal fasciculus. 2. No acute intracranial hemorrhage. 3. Multiple remote infarcts within the periventricular and deep white matter of both hemispheres. 4. Remote hemorrhage within the subcortical white matter of the right frontal lobe. D/ / 11/17/2016 09:01:50 Carlos Griggs MD / [email or web address] Interpreting Provider: Carlos Griggs MD 11/17/16 14:48 - Vascular [facility] [id number] : 1965 Patient Age: 50 Carotid duplex bilateral: normal bilateral Echo with saline and imaging enhancement agent impressions: Technically suboptimal due to body habitus. LVEF 60%. Normal LV chamber size and function. Mild concentric left ventricular hypertrophy. Mild left ventricular diastolic dysfunction. Normal right ventricular structure and function. Suboptimal image quality, but no obvious significant PFO with agitated saline contrast. Unable to estimate RVSP due to lack of TR jet. No obvious significant valvular dysfunction. - Time Spent with Patient Total time spent providing and/or coordinating discharge services: - Constitutional Vitals: Temp Pulse Resp BP Pulse Ox 97.6 F 104 16 109/72 94 11/18/16 07:07 11/18/16 07:07 11/18/16 07:07 11/18/16 07:07 11/18/16 08:00 General appearance: Present: cooperative, A&O X 3, morbidly obese, pleasant, answers questions appropriately - Head Head exam: Present: atraumatic, normocephalic - Eye Eye exam: Present: PERRL, conjuntiva pink, sclera anicteric Pupils: Present: PERRL - Neck Neck exam general surgery: Present: supple, trachea midline. Absent: lymphadenopathy - Respiratory Respiratory exam: Present: CTAB. Absent: accessory muscle use, rales, respiratory distress, rhonchi, wheezes - Cardiovascular Cardiovascular exam: Present: RRR, +S1, +S2. Absent: diastolic murmur, gallop, rubs, systolic murmur - GI/Abdominal GI/Abdominal exam: Present: normal bowel sounds, soft, no peritoneal signs. Absent: distended, tenderness - Extremities Exam Extremities exam: Present: warm, radial pulses palpable and symetrical. Absent : calf tenderness, cyanotic, pedal edema - Neurological Exam Neurological exam: Present: alert, CN II-XII intact, normal gait, oriented X3, no focal deficits, strengths equal and symetr throughout. Absent: pronater drift, facial droop, speech deficit - Expanded Neurological Exam Neurological exam expanded: Present: protecting the airway Patient oriented to: Present: person, place, time Speech: Present: fluid speech Cranial Nerves: EOM's intact PM: Normal, gag reflex PM: Normal Sensory exam: LE 2 point discrimination: Abnormal Right Neuro motor strength exam: LUE: 5, RUE: 5, LLE: 5, RLE: 5 Coma Scale Eye Opening: Spontaneous Coma Scale Motor Response: Obeys Commands Coma Scale Verbal Response: Oriented Coma Scale Total: 15 - Skin Skin exam: Present: dry, intact, normal color, warm - Stroke Contraindication Rehab Services Not Assessed: Returned to Prior Level of Function
[2016-11-18 17:10] VITALS: BP 126/67
--- NOTE | 2016-11-18 19:16 | Carotid Imaging Report ---
Carotid Duplex Patient Name:Esteban Harrison Order Number:[id number] Procedure Date:11/17/2016 Date:1965Age:50 yrs Gender:Male Location: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 Recommendations: After imaging the patient returned to their room. Findings Carotid Duplex: Right: The right proximal common carotid artery has a PSV of 60 cm/s and a EDV of 10 cm/s. The right mid common carotid artery has a PSV of 75 cm/s and a EDV of 17 cm/s. The right distal common carotid artery has a PSV of 53 cm/s and a EDV of 13 cm/s. The right bifurcation has a PSV of 40 cm/s and a EDV of 12 cm/s. The right proximal internal carotid artery has a PSV of 46 cm/s and a EDV of 19 cm/s. The right mid internal carotid artery has a PSV of 68 cm/s and a EDV of 28 cm/s. The right distal internal carotid artery has a PSV of 91 cm/s and a EDV of 34 cm/s. The right eca has a PSV of 69 cm/s and a EDV of 13 cm/s. The right vertebral artery has a PSV of 29 cm/s and a EDV of 10 cm/s. Left: The left proximal common carotid artery has a PSV of 81 cm/s and a EDV of 18 cm/s. The left mid common carotid artery has a PSV of 70 cm/s and a EDV of 15 cm/s. The left distal common carotid artery has a PSV of 66 cm/s and a EDV of 15 cm/s. The left bifurcation has a PSV of 56 cm/s and a EDV of 14 cm/s. The left proximal internal carotid artery has a PSV of 71 cm/s and a EDV of 29 cm/s. The left mid internal carotid artery has a PSV of 81 cm/s and a EDV of 23 cm/s. The left distal internal carotid artery has a PSV of 81 cm/s and a EDV of 32 cm/s. The left eca has a PSV of 69 cm/s and a EDV of 13 cm/s. The left vertebral artery has a PSV of 34 cm/s and a EDV of 9 cm/s. Carotid Results Right PSV EDV Assessment Proximal CCA 60 10 Normal Mid CCA 75 17 Normal Distal CCA 53 13 Normal Bifurcation 40 12 Normal Proximal ICA 46 19 Normal Mid ICA 68 28 Normal Distal ICA 91 34 Normal ECA 69 13 Normal Vertebral Artery 29 10 Normal Left PSV EDV Assessment Proximal CCA 81 18 Normal Mid CCA 70 15 Normal Distal CCA 66 15 Normal Bifurcation 56 14 Normal Proximal ICA 71 29 Normal Mid ICA 81 23 Normal Distal ICA 81 32 Normal ECA 69 13 Normal Vertebral Artery 34 9 Normal Ratio's Right ICA/CCA Ratio: 1.20 ICA/CCA Values: 91/75 Left ICA/CCA Ratio: 1.20 ICA/CCA Values: 81/70 Updated by Rubin Donovan MD on 11/18/2016 7:09:22 PM electronically signed on 11/18/2016 7:09:45 PM with status of Final
== END 2016-11-18 15:18 | disposition home or self-care (01) | DRG 65 ==
LOC: 3BNU 14:42 → EMEROO 14:42 → 3BNU 17:11 → SUATTDRO 11-17 13:14
PROVIDERS: ADMIT Nurse Practitioner Family; ATTEND Nurse Practitioner Family

== ENCOUNTER 2016-12-08 01:48 | Inpatient (IN) ==
[2016-12-08] MEDS ORDERED: 0.9 % Sodium Chloride 1,000 ML IVC ONE (02:01)
--- NOTE | 2016-12-08 02:06 | Emergency Department Note ---
Disposition Clinical Impression: Right sided weakness Disposition: Admitted As Inpatient Condition: Fair Neuro HPI - General Stated Complaint: "rule out stroke" Time Seen by Provider: 12/08/16 01:49 Source: patient Mode of arrival: wheelchair Limitations: no limitations Nursing Notes Reviewed: Yes Vital Signs Reviewed: Yes - History of Present Illness HPI Narrative: Patient presents to the ED with the chief complaint of right-sided weakness. Patient reports he has been evaluated previously for CVA. After medical record review. Patient was admitted last month for CVA. States he is having similar symptoms again today. Reports that he went to bed at 9 PM and woke up around 1 to 1:30 and felt that his right upper and right lower extremity were weak. States the last time he was just having numbness and tingling, but this time he is having numbness, tingling and weakness. No trouble speaking or noticeable facial asymmetry. No headaches, fevers, chest pain, shortness of breath, nausea , vomiting or abdominal pain. No new pain or swelling in his legs. He reports he has been out of one of his diabetes medications for his blood sugar has been well under control. Reports that he has been compliant with aspirin and Plavix - Related Data Home Medications: Home Medications Medication Instructions Recorded Confirmed Albuterol Neb [Proventil Neb] 2.5 mg IH TID PRN 11/16/16 12/08/16 Albuterol Sulfate [Albuterol 2 puff IH Q4H PRN 11/16/16 12/08/16 Inhaler] Aspirin [Ecotrin] 325 mg PO DAILY 11/16/16 12/08/16 BuPROPion XL (24 HR) [Wellbutrin 150 mg PO DAILY 11/16/16 12/08/16 Xl] Cetirizine HCl [Zyrtec] 10 mg PO DAILY 11/16/16 12/08/16 Clopidogrel [Plavix] 75 mg PO DAILY 11/16/16 12/08/16 Cyclobenzaprine [Flexeril] 10 mg PO HS PRN 11/16/16 12/08/16 Diltiazem HCl [Diltiazem 24Hr Cd] 240 mg PO DAILY 11/16/16 12/08/16 Fluticasone Propionate Nasal 100 mcg NS DAILY 11/16/16 12/08/16 [Flonase] Fluticasone/Salmeterol [Advair 2 each IH DAILY 11/16/16 12/08/16 100-50 Diskus] Glimepiride [Amaryl] 4 mg PO BID 11/16/16 12/08/16 Levothyroxine Sodium [Synthroid] 274 mcg PO QAM 11/16/16 12/08/16 Multivitamin [Multi-Day Vitamins] 1 each PO DAILY 11/16/16 12/08/16 [place]-3/Dha/Epa/Fish Oil [Fish Oil 1,000 mg PO DAILY 11/16/16 12/08/16 1,000 mg Softgel] Simvastatin [Zocor] 20 mg PO HS 11/16/16 12/08/16 Sitagliptin Phos/Metformin HCl 1 tab PO BID 11/16/16 12/08/16 [Janumet 50-1,000 mg Tablet] Tramadol HCl [Ultram] 50 mg PO Q4H PRN 11/16/16 12/08/16 Ubidecarenone [Co Q-10] 100 mg PO DAILY 11/16/16 12/08/16 Valsartan/Hydrochlorothiazide 0.5 each PO BID 11/16/16 12/08/16 [Diovan Hct 160-12.5 mg Tab] Allergies/Adverse Reactions: Allergies Allergy/AdvReac Type Severity Reaction Status Date / Time sulfamethoxazole Allergy Hives Verified 12/08/16 02:06 [From Bactrim] trimethoprim [From Bactrim] Allergy Hives Verified 12/08/16 02:06 atenolol AdvReac Palpitation Verified 12/08/16 02:06 s Constitutional: Denies: fever Eyes: Denies: vision change Cardiovascular: Denies: chest pain Gastrointestinal: Denies: abdominal pain, vomiting Musculoskeletal: Denies: back pain Neurological: Reports: weakness, numbness, paresthesias. Denies: headache, abnormal gait, vertigo Psychiatric: Denies: anxiety, depression Endocrine: Denies: fatigue Past Medical History - Past Medical History Attestation: Yes The following information was validated with the patient. Source: patient Medical history: Reports: diabetes, hyperlipidemia, hypertension, thyroid disease Surgical history: Reports: other Psychiatric history: Reports: no psych history - Social History Smoking Status: Never smoker Smokeless Tobacco Status: No Alcohol use: Reports: occasionally Drug use: Reports: marijuana Physical Exam - General Limitations: no limitations General appearance: alert, in no apparent distress - Head Head exam: atraumatic, normocephalic, normal inspection - Eye Eye exam: Present: normal appearance, PERRL, EOMI - ENT ENT exam: normal exam, normal oropharynx, mucous membranes moist - Neck Neck exam: Present: normal inspection, full ROM, trachea midline - Chest Chest inspection: Present: normal inspection, symmetric chest wall rise - Respiratory Respiratory exam: Present: normal lung sounds bilaterally - Cardiovascular Cardiovascular exam: Present: regular rate, normal rhythm, normal heart sounds - Abdominal Exam Abdominal exam: Present: soft, Non-Tender. Absent: tenderness, distention, guarding, rebound, rigidity - Extremities Exam Extremities exam: Present: normal inspection, full ROM. Absent: tenderness, pedal edema - Neurological Exam Neurological exam: Present: alert, oriented X3, CN II-XII intact - Expanded Neurological Exam Patient oriented to: Present: person, place, time Speech: Present: fluid speech Cranial nerves: EOM function (II, III, IV, ): Normal, facial sensation (V): Normal, facial palsy (VII): Normal, spinal accessory function (XI): Normal, tongue deviation (XII): Normal Cerebellar function: finger to nose: Normal Cerebellar function: normal gait Motor strength - LUE: 5/5 Motor strength - RUE: 5/5 (Patient has minimal difference as compared to the left, but is still 5 out of 5) Motor strength - LLE: 5/5 Motor strength - RLE: 5/5 (Patient has minimal difference as compared to the left, but is still 5 out of 5) Upper motor neuron exam: nova neglect: Absent bilaterally, pronator drift: Absent bilaterally, sensory extinction: Absent bilaterally Sensory exam upper extremity: light touch: Normal Sensory exam lower extremity: light touch: Normal DTR: patellar (L): 2+, patellar (R): 2+ Coma Scale Eye Opening: Spontaneous Coma Scale Motor Response: Obeys Commands Coma Scale Verbal Response: Oriented Coma Scale Total: 15 - Psychiatric Psychiatric exam: Present: normal affect, normal mood - Skin Skin exam: Present: warm, dry, intact, normal color Course - Reevaluation(s) Reevaluation #1: Patient evaluated at bedside. His NIH is 0. He has very slight weakness of his right upper and right lower extremity compared to his left however, his strength is still 5 out of 5. There are no signs of cerebellar dysfunction or a disturbance. Stroke alert was not called at this time due to his normal NIH and minimal symptoms. However, the patient will still receive a workup for CVA and will be admitted to the hospital again. If his renal function can tolerate it. He will receive a CTA of his head prior to admission due to delay in ability to obtain an MRI. Time: 02:04 Vital Signs Temperature 97.8 F 12/08/16 01:53 Pulse Rate 99 12/08/16 01:53 Respiratory Rate 20 12/08/16 01:53 Blood Pressure 149/105 12/08/16 01:53 O2 Sat by Pulse Oximetry 95 12/08/16 01:53 Temperature 98.1 F 12/08/16 04:11 Pulse Rate 92 12/08/16 04:11 Respiratory Rate 18 12/08/16 04:11 Blood Pressure 127/85 12/08/16 04:11 O2 Sat by Pulse Oximetry 92 12/08/16 04:11 Oxygen Delivery Oxygen Delivery Room Air Neuro Symptoms/Deficit - Medical Records Medical records reviewed: Yes I reviewed the patient's medical records. - Lab Data Lab results reviewed: Yes I reviewed the patient's lab results. Result diagrams: 12/08/16 02:06 12/08/16 02:06 Lab Results 12/08/16 12/08/16 12/08/16 Range/Units 01:56 02:06 02:06 WBC 7.7 (4.3-11.1) K/mcL RBC 4.93 (4.19-5.50) M/mcL Hgb 13.9 (12.9-16.9) g/dL Hct 42.9 (37.5-50.1) % MCV 87.0 (83.0-100.0) fL MCH 28.2 (28.0-33.3) pg MCHC 32.4 (31.6-35.5) g/dL RDW 12.5 (11.5-14.5) % Plt Count 232 (140-400) K/mcL MPV 9.8 (9.4-12.4) fL Immature Gran % 0.8 (0-4) % Seg Neutrophils % 63.9 % Lymphocytes % 23.1 % Monocytes % 8.4 % Eosinophils % 3.0 % Basophils % 0.8 % Neutrophils # 4.9 (1.6-8.9) K/mcL Lymphocytes # 1.8 (0.6-4.6) K/mcL Monocytes # 0.7 (0.0-1.3) K/mcL Eosinophils # 0.2 (0.0-0.6) K/mcL Basophils # 0.1 (0.0-0.2) K/mcL PT 12.1 (9.4-12.1) Seconds INR 1.1 APTT 28.8 (26.0-36.0) Seconds Sodium (136-145) mEq/L Potassium (3.5-4.5) mEq/L Chloride (98-109) mEq/L Carbon Dioxide (19-29) mEq/L BUN (8-26) mg/dL Creatinine (0.72-1.25) mg/dL Est GFR ( Amer) (> 60) Est GFR (Non-Af Amer) (> 60) BUN/Creatinine Ratio (6-26) Glucose (70-99) mg/dL POC Glucose 122 H (58-89) Calculated Osmolality (280-300) Calcium (8.6-10.8) mg/dL Troponin I (0-0.03) ng/mL 12/08/16 12/08/16 Range/Units 02:06 02:06 WBC (4.3-11.1) K/mcL RBC (4.19-5.50) M/mcL Hgb (12.9-16.9) g/dL Hct (37.5-50.1) % MCV (83.0-100.0) fL MCH (28.0-33.3) pg MCHC (31.6-35.5) g/dL RDW (11.5-14.5) % Plt Count (140-400) K/mcL MPV (9.4-12.4) fL Immature Gran % (0-4) % Seg Neutrophils % % Lymphocytes % % Monocytes % % Eosinophils % % Basophils % % Neutrophils # (1.6-8.9) K/mcL Lymphocytes # (0.6-4.6) K/mcL Monocytes # (0.0-1.3) K/mcL Eosinophils # (0.0-0.6) K/mcL Basophils # (0.0-0.2) K/mcL PT (9.4-12.1) Seconds INR APTT (26.0-36.0) Seconds Sodium 139 (136-145) mEq/L Potassium 4.1 (3.5-4.5) mEq/L Chloride 103 (98-109) mEq/L Carbon Dioxide 27 (19-29) mEq/L BUN 15 (8-26) mg/dL Creatinine 0.99 (0.72-1.25) mg/dL Est GFR ( Amer) > 60 (> 60) Est GFR (Non-Af Amer) > 60 (> 60) BUN/Creatinine Ratio 15 (6-26) Glucose 115 H (70-99) mg/dL POC Glucose (58-89) Calculated Osmolality 290 (280-300) Calcium 10.0 (8.6-10.8) mg/dL Troponin I 0.01 (0-0.03) ng/mL - Radiology Data Radiology results reviewed: Yes I reviewed the patient's radiology results. - EKG Data EKG attestation: Yes I reviewed and interpreted this EKG. EKG results narrative: Sinus rhythm, rate 98, ND interval 176, QRS 113, QTC 420, left axis deviation, no acute ischemic changes, no change from previous. TPA Checklist - LKW: 3-4.5 hrs Add. Warnings/Precautions Patient/family understanding: The patient/family members have been counseled and understood the risk, benefit , and alternatives of treatment. Attestation Statement - Attestation Attestation: I personally interviewed and examined this patient and my medical decision- making was reviewed with the ED Resident Physician, Dr. Matson. I agree with the documented findings, disposition and treatment plan as described except to the extent set forth below. Patient is a 50-year-old morbidly obese black male who presents to the ER [facility] with complaints of right-sided numbness tingling and weakness. Patient states symptoms began just before 9:00 this evening then the patient proceeded to go to bed and upon waking between 1 and 1:30 symptoms felt more severe and he came in for evaluation. Patient denies any facial droop, no slurred speech, no difficulty with ambulation or balance, no dizziness or vertigo no headache or visual changes. Patient denies any chest pain or pressure, no shortness of breath, no diaphoresis, no nausea vomiting, no abdominal pain or back pain. Patient was admitted and evaluated for CVA 1 month ago here, patient was found to have had a pontine CVA and has been on aspirin and Plavix since that time. Patient has been compliant with his medications. He had a thorough stroke evaluation including carotid Dopplers and echocardiogram which were within normal limits. Patient with similar symptoms today except he states that they affected side feels weak. I agree with patient's physical exam findings as documented. Patient's initial NIH score equals 0, symptoms were over 5 hours ago and onset. Patient does not meet criteria for TPA. We proceeded with a stroke evaluation. Patient was on quality assurance monitor continuous pulse ox IV saline well was established labs were drawn and sent. Patient had potable chest x-ray and CT of the head which is noncontrast. Patient over time had stable neurologic symptoms with no worsening. Patient's entire workup here in the ER including EKG, labs and CT imaging as well as chest x-ray were all within normal limits. Patient remains hemodynamically stable at this time. We will admit the patient for further evaluation and management of his stroke symptoms. Case was discussed with the hospitalist who accepted the patient for admission.
[2016-12-08 02:15] LABS: Basophils # 0.1 K/mcL (0.0-0.2); Basophils % 0.8 %; Eosinophils # 0.2 K/mcL (0.0-0.6); Hematocrit 42.9 % (37.5-50.1); Hemoglobin 13.9 g/dL (12.9-16.9); Immature Granulocytes % 0.8 % (0-4); Lymphocytes # 1.8 K/mcL (0.6-4.6); Lymphocytes % 23.1 %; Mean Corpuscular HGB Conc 32.4 g/dL (31.6-35.5); Mean Corpuscular Hemoglobin 28.2 pg (28.0-33.3); Mean Platelet Volume 9.8 fL (9.4-12.4); Monocytes # 0.7 K/mcL (0.0-1.3); Monocytes % 8.4 %; Neutrophils # 4.9 K/mcL (1.6-8.9); Platelet Count 232 K/mcL (140-400); Red Blood Count 4.93 M/mcL (4.19-5.50); Red Cell Distribution Width 12.5 % (11.5-14.5); Segmented Neutrophils % 63.9 %
[2016-12-08 02:22] LABS: INR 1.1; Prothrombin Time 12.1 Seconds (9.4-12.1)
[2016-12-08 02:24] LABS: Activated Partial Thrombo Time 28.8 Seconds (26.0-36.0)
[2016-12-08 02:28] LABS: BUN/Creatinine Ratio 15 (6-26); Blood Urea Nitrogen 15 mg/dL (8-26); Carbon Dioxide 27 mEq/L (19-29); Chloride 103 mEq/L (98-109); Glucose 115 mg/dL (70-99); Osmolality,Calculated 290 (280-300); Potassium 4.1 mEq/L (3.5-4.5); Sodium 139 mEq/L (136-145); eGFR For African Americans > 60 (> 60); eGFR For Non-African Americans > 60 (> 60)
[2016-12-08] MEDS ORDERED: Aspirin 325 MG TABLET PO ONE (02:50)
[2016-12-08] MEDS ORDERED: Naloxone 0.4 MG/ML INJ IVP PRN (05:50)
[2016-12-08] MEDS ORDERED: *HR* Dextrose 50 % in Water (Syg) 50 ML SYRINGE IVP PRN (05:50)
[2016-12-08] MEDS ORDERED: Acetaminophen 325 MG TABLET PO PRN (05:50)
[2016-12-08] MEDS ORDERED: D5% in Water 1,000 ML IVC PRN (05:50)
[2016-12-08] MEDS ORDERED: Dextrose Gel 15 GM PO PRN ×2 (05:50)
[2016-12-08] MEDS ORDERED: Ondansetron 4 MG/2 ML VIAL IVP PRN (05:50)
--- NOTE | 2016-12-08 06:15 | Internal Med History&Physical ---
Date of Encounter: 12/08/16 Time of Encounter: 06:03 Assessment and Plan (1) Cerebrovascular accident Current visit: No Status: Acute 1. Will proceed with stroke orders, neurochecks, and MRI to compare to previous MRI. 2. Given symptoms, I'm concerned about possible extension of last stroke. 3. Consult neurology for guidance of anti-coagulation. 4. PtT/OT consults. Qualifiers: CVA mechanism: unspecified Qualified Code(s): I63.9 - Cerebral infarction, unspecified (2) Essential hypertension Current visit: No Status: Chronic 1. Continue home meds as appropriate. 2. Monitor and adjust BP meds as needed, allowing some room for auto- correction in the setting of acute CVA. (3) Diabetes mellitus, type 2 Current visit: No Status: Chronic 1. Hold home meds. 2. Will use SSI while in the hospital. Qualifiers: Diabetes mellitus complication status: without complication Diabetes mellitus mcfp insulin use: without mcfp use Qualified Code(s): E11.9 - Type 2 diabetes mellitus without complications (4) DVT prophylaxis Current visit: Yes Status: Acute 1. Heparin SQ. Internal Medicine - H&P: HPI Chief complaint: right sided weakness, numbness Admitted From: Emergency Dept Plans for Post Hospital Care: Home History of present illness: Mr. Harrison is a 50 year old male who presents [facility] with complaints of worsening weakness, numbness, and paresthesias of his right arm and right leg. He recently had a stroke about 3 weeks ago and was recovering. He still had some residual numbness and paresthesias with minimal weakness. However, he woke up early this morning to use the bathroom. When he woke up to start walking, he noticed profound weakness in his right leg and worsening numbness and paresthesias. He fell to the ground and had difficulty getting up. He therefore came to the ER where he was evaluated and admitted to the hospital service. Upon my assessment patient, he is sleeping but easily arousable. He states he has noticed a significant change in his right hand and arm strength as well as his leg strength since his recent stroke. It has worsened tonight compared to his baseline. He denies any other focal deficits. He denies any speech or swallowing problems. He denies any headaches. Of note, since his last discharge, he was diagnosed with prothrombin gene mutation. His brother is a physician in the [place] area and informed patient to get tested as his brother is a carrier. Patient is on aspirin and Plavix for stroke prophylaxis. However, given the new information, he will likely need anticoagulation. As such, we'll consult neurology for further guidance. Past Med Surg Social Fam HX - Past Medical History Attestation: Yes The following information was validated with the patient. Source: patient, old records reviewed Medical history: asthma, diabetes, hyperlipidemia, hypertension, thyroid disease Psychiatric history: no psych history - Past Surgical History Surgical History: other - Social History Smoking Status: Never smoker Smokeless Tobacco Status: No Alcohol use: occasionally Drug use: marijuana Occupational status: retired Current living situation: Home, With Family Activity Level: Independent ambulation Recent Out of Country Travel Within the Last 8 Weeks: No - Family History Mother Living Status: Hx Family Cardiac Disorders: Yes Hx Family Respiratory Disorders: No Hx Family Cancer: Yes Hx Family GI Disorders: No Hx Family Endocrine Disorder: Yes Hx Family Neuromuscular Disorders: Yes Hx Family Neurologic Disorders: Yes Hx Family HEENT Disorders: No Hx Family Autoimmune Disorders: No Internal Medicine - H&P: Meds Albuterol Neb [Proventil Neb] 2.5 mg IH TID PRN 11/16/16 [History] Albuterol Sulfate [Albuterol Inhaler] 2 puff IH Q4H PRN 11/16/16 [History] Aspirin [Ecotrin] 325 mg PO DAILY 11/16/16 [History] BuPROPion XL (24 HR) [Wellbutrin Xl] 150 mg PO DAILY 11/16/16 [History] Cetirizine HCl [Zyrtec] 10 mg PO DAILY 11/16/16 [History] Clopidogrel [Plavix] 75 mg PO DAILY 11/16/16 [History] Cyclobenzaprine [Flexeril] 10 mg PO HS PRN 11/16/16 [History] Diltiazem HCl [Diltiazem 24Hr Cd] 240 mg PO DAILY 11/16/16 [History] Fluticasone Propionate Nasal [Flonase] 100 mcg NS DAILY 11/16/16 [History] Fluticasone/Salmeterol [Advair 100-50 Diskus] 2 each IH DAILY 11/16/16 [History] Glimepiride [Amaryl] 4 mg PO BID 11/16/16 [History] Levothyroxine Sodium [Synthroid] 274 mcg PO QAM 11/16/16 [History] Multivitamin [Multi-Day Vitamins] 1 each PO DAILY 11/16/16 [History] [place]-3/Dha/Epa/Fish Oil [Fish Oil 1,000 mg Softgel] 1,000 mg PO DAILY 11/16/16 [History] Simvastatin [Zocor] 20 mg PO HS 11/16/16 [History] Sitagliptin Phos/Metformin HCl [Janumet 50-1,000 mg Tablet] 1 tab PO BID [History] Tramadol HCl [Ultram] 50 mg PO Q4H PRN 11/16/16 [History] Ubidecarenone [Co Q-10] 100 mg PO DAILY 11/16/16 [History] Valsartan/Hydrochlorothiazide [Diovan Hct 160-12.5 mg Tab] 0.5 each PO BID 11/16 [History] Allergies sulfamethoxazole [From Bactrim] Allergy (Verified 12/08/16 02:06) Hives trimethoprim [From Bactrim] Allergy (Verified 12/08/16 02:06) Hives atenolol Adverse Reaction (Verified 12/08/16 02:06) Palpitations - Constitutional Constitutional: no chills, no fever(s) - EENT Eyes: no blurry vision, no change in vision Ears: no ear pain, no tinnitus Nose, mouth and throat: no sinus pressure, no sore throat - Cardiovascular Cardiovascular ROS IM: no chest pain, no diaphoresis, no dyspnea, no dyspnea on exertion - Respiratory Respiratory: no cough, no dyspnea, no hemoptysis - Gastrointestinal Gastrointestinal: no abdominal pain, no diarrhea, no vomiting - Genitourinary Genitourinary ROS male: no dysuria, no flank pain, no hematuria - Musculoskeletal Musculoskeletal ROS IM: no arthralgias, no back pain - Integumentary Integumentary IM: no rash - Neurological Neurological ROS: focal weakness, numbness, paresthesias, weakness, no dizziness , no headache(s) - Psychiatric Psychiatric: no anxiety, no depression - Endocrine Endocrine IM: no polydipsia, no polyuria - Hematologic/Lymphatic Hematologic/Lymphatic: easy bruising - Allergic/Immunologic Allergic/Immunologic: no wheezing, no GI upset with certain foods - Constitutional Vitals: Temp Pulse Resp BP Pulse Ox 98.1 F 92 18 127/85 92 12/08/16 04:11 12/08/16 04:11 12/08/16 04:11 12/08/16 04:11 12/08/16 04:11 General appearance: Present: cooperative, A&O X 3, pleasant, no acute distress, answers questions appropriately - Head Head exam: Present: atraumatic, normal inspection - Eye Eye exam: Present: EOMI, normal appearance, PERRL. Absent: scleral icterus Pupils: Present: normal accommodation - ENT ENT exam: Present: mucous membranes moist, normal exam - Neck Neck exam general surgery: Present: full ROM, supple. Absent: lymphadenopathy, tenderness - Expanded Neck Exam Neck exam: Absent: carotid bruit - Respiratory Respiratory exam: Absent: chest wall tenderness, CTAB, rales, rhonchi, wheezes - Cardiovascular Cardiovascular exam: Present: RRR, +S1, +S2. Absent: diastolic murmur, systolic murmur - GI/Abdominal GI/Abdominal exam: Present: normal bowel sounds, soft. Absent: hepatomegaly, mass, splenomegaly - Extremities Exam Extremities exam: Present: full ROM, warm. Absent: calf tenderness, joint swelling, pedal edema - Back Exam Back exam: Absent: CVA tenderness (L), CVA tenderness (R) - Neurological Exam Neurological exam: Present: alert, CN II-XII intact, oriented X3. Absent: strengths equal and symetr throughout (weaker in right arm/hand compared to left ), facial droop, speech deficit - Psychiatric Psychiatric exam: Present: normal affect, normal mood - Skin Skin exam: Present: dry, warm. Absent: rash Internal Med - H&P Results - Labs CBC & Chem 7: 12/08/16 02:06 12/08/16 02:06 - EKG Data -: EKG Interpreted by Myself (NSR; leftward axis; IVCD) - Diagnostic Studies Chest x-ray Status: image reviewed by me (negative)
[2016-12-08] MEDS: *HR* Heparin 5,000 UNIT/ML VIAL SQ SCH ×2 (06:20→18:08)
[2016-12-08] MEDS: Albuterol 2.5 MG/3 ML NEBULIZER IH PRN ×2 (06:20→20:20)
[2016-12-08 07:18] LABS: Hemoglobin A1C 6.7 %
[2016-12-08] MEDS: Insulin LISPRO 300 UNITS/3 ML VIAL SQ SCH ×3 (07:35→17:36)
[2016-12-08] MEDS: Budesonide/Formoterol 80/4.5 MDI IH SCH (08:08)
[2016-12-08] MEDS: Multivit/Ca/Min/Fe/FA 1 TAB TABLET PO SCH (08:56)
[2016-12-08] MEDS: Loratadine 10 MG TABLET PO SCH (08:56)
[2016-12-08] MEDS ORDERED: Diltiazem CD (24hr) 240 MG CAPSULE PO SCH (09:00)
[2016-12-08] MEDS: Aspirin Enteric Coated 325 MG Tablet PO SCH (09:01)
[2016-12-08] MEDS: Fluticasone Propionate Nasal 50 MCG/SPRAY BOTTLE NS SCH (10:21)
[2016-12-08] MEDS: traMADol 50 MG TABLET PO PRN (16:00)
--- NOTE | 2016-12-08 16:26 | Neurology - Consult Note ---
Date of Encounter: 12/08/16 Time of Encounter: 16:23 Assessment and Plan (1) Cerebrovascular accident Current Visit: No Status: Acute I suspect we are dealing with an extension of the previous cerebral infarct. When he was last here in pontine infarct was identified. Certainly he is at risk for small vessel events given his history of diabetes and hypertension. However I am concerned that he has also been found to have a prothrombin gene mutation which may increase his risk of a prothrombotic state. Even though he is heterozygous. For further completeness we should obtain a CTA of the head and of the neck. And further recommendations will be made after the MRI scan of the brain is has been completed. Stroke protocol orders should be implemented. He is already on aspirin and Plavix. He is also on simvastatin. He may require inpatient physical therapy after discharge as he is a very large gentleman. Qualifiers: CVA mechanism: unspecified Qualified Code(s): I63.9 - Cerebral infarction, unspecified History of Present Illness HPI: Mr. Harrison is a 50 year old male with a recent history of pontine infarct hospitalized with the latter part of October with residual right side weakness seen for neurologic evaluation secondary to an increase in numbness tingling weakness of the right arm and right leg. Apparently he awakened during the night to go TO the bathroom and felt some weakness of the right arm and leg but apparently relieved himself from the back to bed. Then when he aroused he noticed that the weakness was persistent. Apparently he almost fell. 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 He also has a history of diabetes mellitus, hyperlipidemia, hypertension. And obesity. He was recently placed on aspirin and Plavix at the time of discharge from his previous admission. The last MRI scan was completed on November 17 which revealed a pontine infarct and evidence of the previous right frontal hemorrhage. MRI scan for this admission is pending. Carotid Doppler studies were completed last admission and were negative for any stenotic lesions. CTA of the head and neck were not completed. Echocardiogram revealed no evidence of valvular disease or septal defect. Past Med Surg Social Fam HX - Past Medical History Medical history: diabetes, hyperlipidemia, hypertension, thyroid disease Psychiatric history: no psych history - Past Surgical History Surgical History: other - Social History Smoking Status: Never smoker Smokeless Tobacco Status: No Alcohol use: occasionally Drug use: marijuana - Family History Mother Living Status: Hx Family Cardiac Disorders: Yes Hx Family Respiratory Disorders: No Hx Family Cancer: Yes Hx Family GI Disorders: No Hx Family Endocrine Disorder: Yes Hx Family Neuromuscular Disorders: Yes Hx Family Neurologic Disorders: Yes Hx Family HEENT Disorders: No Hx Family Autoimmune Disorders: No Medications and Allergies Albuterol Neb [Proventil Neb] 2.5 mg IH TID PRN 11/16/16 [History] Albuterol Sulfate [Albuterol Inhaler] 2 puff IH Q4H PRN 11/16/16 [History] Aspirin [Ecotrin] 325 mg PO DAILY 11/16/16 [History] BuPROPion XL (24 HR) [Wellbutrin Xl] 150 mg PO DAILY 11/16/16 [History] Cetirizine HCl [Zyrtec] 10 mg PO DAILY 11/16/16 [History] Clopidogrel [Plavix] 75 mg PO DAILY 11/16/16 [History] Cyclobenzaprine [Flexeril] 10 mg PO HS PRN 11/16/16 [History] Diltiazem HCl [Diltiazem 24Hr Cd] 240 mg PO DAILY 11/16/16 [History] Fluticasone Propionate Nasal [Flonase] 100 mcg NS DAILY 11/16/16 [History] Fluticasone/Salmeterol [Advair 100-50 Diskus] 2 puff IH DAILY 11/16/16 [History] Glimepiride [Amaryl] 4 mg PO BID 11/16/16 [History] Levothyroxine Sodium [Synthroid] 274 mcg PO QAM 11/16/16 [History] Multivitamin [Multi-Day Vitamins] 1 tab PO DAILY 11/16/16 [History] [place]-3/Dha/Epa/Fish Oil [Fish Oil 1,000 mg Softgel] 1,000 mg PO DAILY 11/16/16 [History] Simvastatin [Zocor] 20 mg PO HS 11/16/16 [History] Sitagliptin Phos/Metformin HCl [Janumet 50-1,000 mg Tablet] 1 tab PO BID [History] Tramadol HCl [Ultram] 50 mg PO Q4H PRN 11/16/16 [History] Ubidecarenone [Co Q-10] 100 mg PO DAILY 11/16/16 [History] Valsartan/Hydrochlorothiazide [Diovan Hct 160-12.5 mg Tab] 0.5 each PO BID 11/16 [History] Apixaban [Eliquis] 5 mg PO BID #60 tablet 12/08/16 [Rx] Exenatide Microspheres [Bydureon] 2 mg SQ WE 12/08/16 [History] Allergies sulfamethoxazole [From Bactrim] Allergy (Verified 12/08/16 02:06) Hives trimethoprim [From Bactrim] Allergy (Verified 12/08/16 02:06) Hives atenolol Adverse Reaction (Verified 12/08/16 02:06) Palpitations All Systems: A 10-system review of systems was performed and is negative for pertinent findings except as documented above in the HPI. Review of Systems: 10 point review of systems is consistent with history of present illness and is otherwise negative. Physical Examination - Vital Signs Vital Signs: Initial Vital Signs Temp Pulse Resp BP Pulse Ox 97.8 F 99 20 149/105 95 12/08/16 01:53 12/08/16 01:53 12/08/16 01:53 12/08/16 01:53 12/08/16 01:53 - Neurologic Sensorimotor examination: other (Decreased sensation to pinprick in the distal to proximal gradient.) Motor examination - right side: 4/5: deltoids, biceps, triceps, hip flexors, quadriceps, 5/5: telephone appointment clerk, tibialis Anterior, plantarflexion Motor examination - left side: 5/5: deltoids, biceps, triceps, wrist flexion, wrist extension, hip flexors, telephone appointment clerk, quadriceps, tibialis Anterior, toe extension (EHL), plantarflexion Mental Status Examination: awake, alert, oriented to person, oriented to place, oriented to time, follows commands appropriately, answers questions appropriately, no agnosia, no aphasia, no aproxia Cranial nerve examination: PERRL, EOMI, visual mclaughlin intact, corneal reflexes brisk symmetrically, sensory to face intact, mastication intact, no facial asymmetry is present, no dysarthria, hearing is intact symmetrically, soft palate elevates bilaterally upon phonation, gag reflex intact, flexes SCM and trapezius muscles symmetrically with full power, tongue protrudes midline, no atrophy or facial fasiculations present Results - Laboratory Findings CBC and BMP: 12/08/16 02:06 12/08/16 02:06 Abnormal lab findings: Abnormal lab results Glucose 115 mg/dL (70-99) H 12/08/16 02:06 POC Glucose 130 (58-89) H 12/08/16 04:19 Hemoglobin A1c 6.7 % (-5.6) H 12/08/16 02:02 Consult Discharge Plan - Plan Referrals: Maggie Navarro MD [Primary Care Provider] - Prescriptions: Apixaban [Eliquis] 5 mg PO BID #60 tablet
--- NOTE | 2016-12-08 18:33 | Internal Med Progress Note ---
Date of Encounter: 12/08/16 Time of Encounter: 09:30 - Assessment and plan (1) Cerebrovascular accident Current Visit: Yes Status: Acute Assessment and plan: - Reported CVA approximately one month ago, has been on aspirin and Plavix. - Patient also states this morning that he has a gene mutation which causes him to be hypercoagulable - Initial head CT emergency department revealed no acute process - Neurology consulted, appreciate recommendations. - Per neurology note, suspect the etiology is an extension of the previous cerebral infarct. - Recommend obtaining a CTA of the head and neck for further evaluation. - MRI ordered and, awaiting results. - Protocol order should be implemented Qualifiers: CVA mechanism: unspecified Qualified Code(s): I63.9 - Cerebral infarction, unspecified (2) Right sided weakness Current Visit: Yes Status: Acute Assessment and plan: - Right-sided weakness unchanged since previous - muskuloskeletal exam revealed 5/5 strength on all extremities - Neurology following, appreciate recommendations. - Related by physical therapy and occupational therapy this afternoon. Recommended inpatient rehabilitation upon discharge. - Social work consulted. Working on outpatient rehabilitation at [place]. Appreciate assistance on this. - Time Spent With Patient 25 - 35 minutes - Subjective Interval history: This note is not for billing purposes. Patient was seen and examined at bedside this morning. He reports that he is continuing to feel weakness in his upper and lower right extremity. He is also complaining of continuing numbness , tingling in the right side as well. He states this is unchanged since yesterday. He states that his gait is unsteady, with him almost falling while getting up to use the restroom this morning. He denies any symptoms of fever, chills, chest pain, shortness of breath, dizziness, lightheadedness, nausea, vomiting. - Constitutional Vitals: Temp Pulse Resp BP Pulse Ox 97.8 F 93 17 123/85 91 12/08/16 15:57 12/08/16 15:57 12/08/16 15:57 12/08/16 15:57 12/08/16 15:57 General appearance: Present: cooperative, A&O X 3, pleasant, no acute distress, answers questions appropriately Exam: Gen.: Vitals noted. No acute distress. AAOx3 HEENT: PERRL/EOMI, oropharynx clear, Normocephalic, atraumatic Neck: Supple. No adenopathy. Cardiac: RRR, no murmur, +S1/S2 Pulmonary: CTA bilaterally, no wheezes, rales or rhonchi, equal chest expansion Abdomen: soft, nontender, BS noted, no guarding Back: Nontender throughout. MSK: 5/5 strength in all extremities. ROM intact, no joint swelling noted Extremities: no BLE edema, nontender calf, no cyanosis or clubbing Neuro: A&Ox3, moves all extremities, no focal deficits. Sensation grossly intact, cranial nerves II through XII grossly intact. Psych: Appropriate mood and behavior Internal Medicine: Result - Labs CBC & Chem 7: 12/08/16 02:06 12/08/16 02:06 - ABG Interpretation ABG results: PT/INR, D-dimer PT 12.1 Seconds (9.4-12.1) 12/08/16 02:06 - Impressions Impressions Brain MRI 12/08/16 05:55 IMPRESSION: New, acute left internal capsule lacunar infarct. Evolving, chronic left dorsal pontine infarct is not significantly changed in size. Mild background chronic microvascular ischemic disease is unchanged. Sequela of remote right frontal subcortical white matter hemorrhage. The findings were sent to the [facility] at 6:19 pm on 12/08/2016to be communicated to a licensed caregiver. D/ / 12/08/2016 18:25:05 Trini Abdullahi MD / marielena Interpreting Provider: Trini Abdullahi MD Head CTA 12/08/16 16:33 IMPRESSION: 1. Unremarkable CTA of the head and neck. There is no evidence of dissection, aneurysm, or major branch vessel occlusion. D/ / Aditya Ledesma MD / Aditya Ledesma MD Interpreting Provider: Aditya Ledesma MD Neck CTA 12/08/16 16:34 IMPRESSION: 1. Unremarkable CTA of the head and neck. There is no evidence of dissection, aneurysm, or major branch vessel occlusion. D/ / Aditya Ledesma MD / Aditya Ledesma MD Interpreting Provider: Aditya Ledesma MD Consult Discharge Plan - Plan Referrals: Maggie Navarro MD [Primary Care Provider] - Prescriptions: Apixaban [Eliquis] 5 mg PO BID #60 tablet
--- NOTE | 2016-12-08 18:53 | Event Note ---
Date of Encounter: 12/08/16 Time of Encounter: 18:52 Brain MRi with new infarct Patient needs anticoagulation due to his recurrent CVA and protein V mutation, I believe he should be started on heparin and bridged with warfarin.
[2016-12-08] MEDS ORDERED: *HR* Heparin 5,000 UNIT/ML VIAL IVP PRN (18:54)
[2016-12-08] MEDS ORDERED: *HR* Heparin 5,000 UNIT/ML VIAL IVP ONE (18:54)
[2016-12-08 19:22] LABS: Hematocrit 40.2 % (37.5-50.1); Hemoglobin 13.3 g/dL (12.9-16.9); Mean Corpuscular HGB Conc 33.1 g/dL (31.6-35.5); Mean Corpuscular Hemoglobin 28.5 pg (28.0-33.3); Mean Corpuscular Volume 86.3 fL (83.0-100.0); Mean Platelet Volume 9.9 fL (9.4-12.4); Platelet Count 206 K/mcL (140-400); Red Blood Count 4.66 M/mcL (4.19-5.50); Red Cell Distribution Width 12.6 % (11.5-14.5)
[2016-12-08 19:42] LABS: INR 1.2; Prothrombin Time 13.3 Seconds (9.4-12.1)
[2016-12-08] MEDS: Heparin 25,000 UNIT/500 ML D5W 25,000 UNIT/500 ML MLS IVC SCH (21:35)
[2016-12-09 03:53] LABS: Basophils # 0.1 K/mcL (0.0-0.2); Basophils % 0.8 %; Eosinophils # 0.2 K/mcL (0.0-0.6); Eosinophils % 2.8 %; Hematocrit 41.5 % (37.5-50.1); Hemoglobin 13.8 g/dL (12.9-16.9); Immature Granulocytes % 0.6 % (0-4); Lymphocytes # 1.8 K/mcL (0.6-4.6); Lymphocytes % 23.2 %; Mean Corpuscular HGB Conc 33.3 g/dL (31.6-35.5); Mean Corpuscular Hemoglobin 28.6 pg (28.0-33.3); Mean Corpuscular Volume 85.9 fL (83.0-100.0); Monocytes # 0.6 K/mcL (0.0-1.3); Monocytes % 7.6 %; Neutrophils # 5.2 K/mcL (1.6-8.9); Platelet Count 221 K/mcL (140-400); Red Blood Count 4.83 M/mcL (4.19-5.50); Red Cell Distribution Width 12.6 % (11.5-14.5)
[2016-12-09 04:11] LABS: Alanine Aminotransferase 22 Units/L (0-55); Albumin 3.7 g/dL (3.5-5.0); Albumin/Globulin Ratio 1.2 (1.1-2.2); Alkaline Phosphatase 89 Units/L (38-126); Aspartate Amino Transferase 34 Units/L (5-34); BUN/Creatinine Ratio 14 (6-26); Bilirubin,Total 0.5 mg/dL (0.2-1.2); Blood Urea Nitrogen 13 mg/dL (8-26); Calcium 9.9 mg/dL (8.6-10.8); Carbon Dioxide 28 mEq/L (19-29); Chloride 104 mEq/L (98-109); Chol/HDL Ratio 3.1 (0-4.9); Cholesterol 110 mg/dL (< 200); Glucose 122 mg/dL (70-99); HDL Cholesterol 35 mg/dL (40-59); LDL Cholesterol,Calculated 32 mg/dL (0-99); Magnesium 1.7 mg/dL (1.6-2.6); Osmolality,Calculated 287 (280-300); Potassium 3.9 mEq/L (3.5-4.5); Sodium 138 mEq/L (136-145); Total Protein 6.7 g/dL (6.0-8.3); Triglycerides 217 mg/dL (< 150); eGFR For African Americans > 60 (> 60); eGFR For Non-African Americans > 60 (> 60)
[2016-12-09] MEDS: *HR* Heparin 5,000 UNIT/ML VIAL IVP PRN ×2 (04:49→13:16)
--- NOTE | 2016-12-09 06:22 | Electrocardiograph Report ---
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
--- NOTE | 2016-12-09 06:24 | Electrocardiograph Report ---
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
[2016-12-09] MEDS: Insulin LISPRO 300 UNITS/3 ML VIAL SQ SCH ×3 (07:42→17:10)
[2016-12-09] MEDS: Budesonide/Formoterol 80/4.5 MDI IH SCH ×2 (07:45)
[2016-12-09] MEDS: Multivit/Ca/Min/Fe/FA 1 TAB TABLET PO SCH (08:54)
[2016-12-09] MEDS: Aspirin Enteric Coated 325 MG Tablet PO SCH (08:54)
[2016-12-09] MEDS: Fluticasone Propionate Nasal 50 MCG/SPRAY BOTTLE NS SCH (08:54)
[2016-12-09] MEDS: Loratadine 10 MG TABLET PO SCH (08:54)
--- NOTE | 2016-12-09 10:12 | Internal Med Progress Note ---
<Luann Krishnamurthy - Last Filed: 12/09/16 16:21> Date of Encounter: 12/09/16 Time of Encounter: 10:00 - Assessment and plan (1) Cerebrovascular accident Current Visit: Yes Status: Acute Assessment and plan: -MRI of head- new left internal capsule infarct - Patient stated he had a CVA approximately one month ago, and has been on aspirin and Plavix. - Patient has a factor V mutation - Head CT revealed no acute process - CTA head/neck- unremarkable - Neurology consulted, appreciate recommendations. Plan: -heparin and coumadin bridge - Stroke Protocol order should be implemented Qualifiers: CVA mechanism: unspecified Qualified Code(s): I63.9 - Cerebral infarction, unspecified (2) Right sided weakness Current Visit: Yes Status: Acute Assessment and plan: - Right-sided weakness in arm and leg unchanged since previous CVA - PT/OT - Recommended inpatient rehabilitation upon discharge. - Social work consulted- Working on outpatient rehabilitation at [place]. 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 Qualified Code(s): E11.9 - Type 2 diabetes mellitus without complications (5) DVT prophylaxis Current Visit: Yes Status: Acute Assessment and plan: heparin - Subjective Interval history: Patient stated he has a little shortness of breathe still has numbness and tingling in hands and feet He denies chest pain, change in vision or headache he is comfortably laying in bed - Constitutional Vitals: Temp Pulse Resp BP Pulse Ox 97.3 F L 100 20 139/94 92 12/09/16 07:08 12/09/16 07:08 12/09/16 07:08 12/09/16 07:08 12/09/16 07:08 General appearance: Present: cooperative, A&O X 3, pleasant, no acute distress, answers questions appropriately - Head Head exam: Present: atraumatic, normocephalic - Eye Eye exam: Present: conjuntiva pink. Absent: scleral icterus - Respiratory Respiratory exam: Present: CTAB. Absent: rales, respiratory distress - Cardiovascular Cardiovascular exam: Present: RRR, +S1, +S2. Absent: clicks - GI/Abdominal GI/Abdominal exam: Present: normal bowel sounds, soft. Absent: guarding - Extremities Exam Extremities exam: Absent: pedal edema, tenderness - Neurological Exam Neurological exam: Present: alert, motor sensory deficit (sensory intact), oriented X3. Absent: altered, strengths equal and symetr throughout (weaker on right side), facial droop, speech deficit - Skin Skin exam: Present: dry, intact Internal Medicine: Result - Labs CBC & Chem 7: 12/09/16 03:34 12/09/16 03:34 Labs: Short CBC 12/08/16 12/09/16 Range/Units 19:03 03:34 WBC 7.4 7.9 (4.3-11.1) K/mcL Hgb 13.3 13.8 (12.9-16.9) g/dL Hct 40.2 41.5 (37.5-50.1) % Plt Count 206 221 (140-400) K/mcL Neutrophils # 5.2 (1.6-8.9) K/mcL BMP 12/09/16 03:34 Sodium 138 Potassium 3.9 Chloride 104 Carbon Dioxide 28 BUN 13 Creatinine 0.96 Glucose 122 H Calcium 9.9 Liver Function 12/09/16 Range/Units 03:34 Total Bilirubin 0.5 (0.2-1.2) mg/dL AST 34 (5-34) Units/L ALT 22 (0-55) Units/L Alkaline Phosphatase 89 (38-126) Units/L Albumin 3.7 (3.5-5.0) g/dL - ABG Interpretation ABG results: PT/INR, D-dimer PT 13.3 Seconds (9.4-12.1) H 12/08/16 19:03 - Impressions Impressions Brain MRI 12/08/16 05:55 IMPRESSION: New, acute left internal capsule lacunar infarct. Evolving, chronic left dorsal pontine infarct is not significantly changed in size. Mild background chronic microvascular ischemic disease is unchanged. Sequela of remote right frontal subcortical white matter hemorrhage. The findings were sent to the Radiology Results Communication [facility] at 6:19 pm on 12/08/2016to be communicated to a licensed caregiver. D/ / 12/08/2016 18:25:05 Trini Abdullahi MD / marielena Interpreting Provider: Trini Abdullahi MD Head CTA 12/08/16 16:33 IMPRESSION: 1. Unremarkable CTA of the head and neck. There is no evidence of a dissection, aneurysm, or major branch vessel occlusion. D/ / 12/08/2016 18:41:19 Aditya Ledesma MD / marielena Interpreting Provider: Aditya Ledesma MD Neck CTA 12/08/16 16:34 IMPRESSION: 1. Unremarkable CTA of the head and neck. There is no evidence of a dissection, aneurysm, or major branch vessel occlusion. D/ / 12/08/2016 18:41:19 Aditya Ledesma MD / marielena Interpreting Provider: Adiyta Ledesma MD Consult Discharge Plan - Plan Referrals: Maggie Navarro MD [Primary Care Provider] - <Stuart Eduardo P - Last Filed: 12/09/16 20:13> Date of Encounter: 12/09/16 - Constitutional Vitals: Temp Pulse Resp BP Pulse Ox 97 F L 99 17 111/68 94 12/09/16 19:15 12/09/16 19:15 12/09/16 19:15 12/09/16 19:15 12/09/16 19:15 Internal Medicine: Result - Labs CBC & Chem 7: 12/09/16 03:34 12/09/16 03:34 - ABG Interpretation ABG results: PT/INR, D-dimer PT 13.3 Seconds (9.4-12.1) H 12/08/16 19:03 - Attending Attestation I examined this patient and my medical decision-making was reviewed with the Resident Physician. I agree with the documented findings, disposition and treatment plan as described except to the extent set forth below. We will follow the recommendations from neurology/hematology
[2016-12-09] MEDS: Heparin 25,000 UNIT/500 ML D5W 25,000 UNIT/500 ML MLS IVC SCH (15:45)
--- NOTE | 2016-12-09 16:55 | Oncology Inp Consult Note ---
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 Harrison that the being a carrier of prothrombin gene mutation, increase his risk of thrombotic events. I explained him that the etiology of his CVAs is more likely multifactorial, with DM and HTN probably playing the main role, although certainly being a carrier of prothrombin gene mutation would add additional risk for thrombosis. - I agree with the recommendation for full anticoagulation with coumadin in view that he has suffered a recurrent CVA while on double anti platelet agents. New anticoagulants ( such as apixaban, xarelto) would not be recommended in view that his BMI and weight are above 40 and 120 respectively. 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 - He seems to be in agreement with the recommendations for [facility] anticoagulation with coumadin. I would suggest an INR goal between 2-3. Heparin drip can be discontinued after he has completed 5 days AND his INR has been therapeutic x 2. - If you have any questions, please do not hesitate to call me. Nakul Banuelos MD (2) Cerebrovascular accident Status: Acute Assessment and plan: As per neurology recommendations. Qualifiers: CVA mechanism: unspecified Qualified Code(s): I63.9 - Cerebral infarction, unspecified - Data of Consult Requesting Physician: Castillo Crain MD Primary Care Provider: Maggie Navarro, - Consult Narrative Reason for consult: CVA in the setting of heterozygous for prothrombin gene mutation History of present illness: Mr. Harrison is a 50 year old male with history of CVA, DM, HTN, thyroid disease, and heterozygous for prothrombin gene mutation ( one copy of [id number]). He was checked for prothrombin gene mutation after his brother was found to be a carrier ( who is a physician in the [place] area) , in addition to his prior history of stroke. He reports not history of DVT or PE. He was admitted yesterday due to new neurologic deficits caracterized for worsening right side weakness and paresthesia. He underwent a brain MRI findings consisting with extension of prior infarct, along with lacunar infarct. He suffered another CVA one month ago while on dual antiplatelet agents with asa and plavix. During the current hospitalization, he was started on heparin drip. Neurology was consulted and recommended full anticoagulation. he will be transitioned to coumadin. His current work up also includes a CTA of neck and head that showed not evidence of new intra cranial bleeding, aneurism, dissection, or major vessel occlusion. His TTE showed not evidence of significant valvular disease. At the time of the consult he reports no acute complaints. Past Med Surg Social Fam HX - Past Medical History Medical history: diabetes, hyperlipidemia, hypertension, thyroid disease, other (Heterozygous for prothrombin gene mutation [id number]) Psychiatric history: no psych history - Past Surgical History Surgical History: other - Social History Smoking Status: Never smoker Smokeless Tobacco Status: No Alcohol use: occasionally Drug use: marijuana - Family History Mother Living Status: Hx Family Cardiac Disorders: Yes Hx Family Respiratory Disorders: No Hx Family Cancer: Yes Hx Family GI Disorders: No Hx Family Endocrine Disorder: Yes Hx Family Neuromuscular Disorders: Yes Hx Family Neurologic Disorders: Yes Hx Family HEENT Disorders: No Hx Family Autoimmune Disorders: No Brother Hx Family Endocrine Disorder: Yes (carrier of prothombin gene mutation) Medications and Allergies Albuterol Neb [Proventil Neb] 2.5 mg IH TID PRN 11/16/16 [History] Albuterol Sulfate [Albuterol Inhaler] 2 puff IH Q4H PRN 11/16/16 [History] Aspirin [Ecotrin] 325 mg PO DAILY 11/16/16 [History] BuPROPion XL (24 HR) [Wellbutrin Xl] 150 mg PO DAILY 11/16/16 [History] Cetirizine HCl [Zyrtec] 10 mg PO DAILY 11/16/16 [History] Clopidogrel [Plavix] 75 mg PO DAILY 11/16/16 [History] Cyclobenzaprine [Flexeril] 10 mg PO HS PRN 11/16/16 [History] Diltiazem HCl [Diltiazem 24Hr Cd] 240 mg PO DAILY 11/16/16 [History] Fluticasone Propionate Nasal [Flonase] 100 mcg NS DAILY 11/16/16 [History] Fluticasone/Salmeterol [Advair 100-50 Diskus] 2 puff IH DAILY 11/16/16 [History] Glimepiride [Amaryl] 4 mg PO BID 11/16/16 [History] Levothyroxine Sodium [Synthroid] 274 mcg PO QAM 11/16/16 [History] Multivitamin [Multi-Day Vitamins] 1 tab PO DAILY 11/16/16 [History] Pedro-3/Dha/Epa/Fish Oil [Fish Oil 1,000 mg Softgel] 1,000 mg PO DAILY 11/16/16 [History] Simvastatin [Zocor] 20 mg PO HS 11/16/16 [History] Sitagliptin Phos/Metformin HCl [Janumet 50-1,000 mg Tablet] 1 tab PO BID [History] Tramadol HCl [Ultram] 50 mg PO Q4H PRN 11/16/16 [History] Ubidecarenone [Co Q-10] 100 mg PO DAILY 11/16/16 [History] Valsartan/Hydrochlorothiazide [Diovan Hct 160-12.5 mg Tab] 0.5 each PO BID 11/16 [History] Apixaban [Eliquis] 5 mg PO BID #60 tablet 12/08/16 [Rx] Exenatide Microspheres [Bydureon] 2 mg SQ WE 12/08/16 [History] Allergies sulfamethoxazole [From Bactrim] Allergy (Verified 12/08/16 02:06) Hives trimethoprim [From Bactrim] Allergy (Verified 12/08/16 02:06) Hives atenolol Adverse Reaction (Verified 12/08/16 02:06) Palpitations Constitutional: Present: weakness Eyes: Absent: diplopia, loss of peripheral vision Ears: Present: as per HPI Cardiovascular: Absent: chest pain, chest pain with activity, rapid heart rate Respiratory: Absent: wheezing, pain on inspiration Gastrointestinal: Absent: abdominal pain, diarrhea, hematochezia, melena Musculoskeletal: Present: muscle weakness Neurological: Present: focal weakness Hematologic/Lymphatic: Absent: easy bleeding, easy bruising Allergic/Immunologic: Absent: tongue swelling Oncology - Exam - Constitutional Vitals: Temp Pulse Resp BP Pulse Ox 98 F 96 16 115/75 91 12/09/16 16:03 12/09/16 16:03 12/09/16 16:03 12/09/16 16:03 12/09/16 16:03 - Head Head exam: Present: normal inspection - Eye Eye exam: Present: normal appearance - ENT ENT exam: Present: normal oropharynx - Respiratory Respiratory exam: Present: CTAB - Cardiovascular Cardiovascular exam: Present: +S1 - GI/Abdominal GI/Abdominal exam: Present: normal bowel sounds - Extremities Exam Extremities exam: Absent: calf tenderness, joint swelling Oncology - Results - Labs Labs: 1 copy of [id number] ( carrier of prothrombin gene mutation) Consult Discharge Plan - Plan Referrals: Maggie Navarro MD [Primary Care Provider] -
--- NOTE | 2016-12-09 17:29 | Neurology Progress Note ---
Date of Encounter: 12/09/16 Time of Encounter: 17:27 Assessment and Plan (1) Cerebrovascular accident Current Visit: Yes Status: Acute I did have a very ramón discussion with Mr. Harrison today. I agree with hematology oncology's assessment. All the prothrombin gene mutation may be contributing, I really strongly believe that his risk factors of hyperlipidemia , hypertension, diabetes mellitus, and obesity, are the major factors contributing here to atherosclerosis particularly of the small vessels causing these events. I did ask him if he had spoken with his primary care provider about lifestyle changes and how to implement them. Also weight reduction strategies. I have been casually mentioned perhaps considering a surgical procedure if necessary. He states "I will just have to stop eating" he feels that any type of surgical procedure would be too invasive. However he is fully aware of the inevitable mobility of these events ultimately rendering him to a condition where he is disabled, or worse. Otherwise risk factor modification is paramount. He will also need inpatient rehabilitation probably for short course as he is a large gentleman may be at risk for falls. I will reevaluate him at your request. Qualifiers: CVA mechanism: unspecified Qualified Code(s): I63.9 - Cerebral infarction, unspecified Subjective Interval history: The chart was reviewed, Mr. Harrison was seen and examined. I did actually review the MRI scan of the brain which does reveal a new area of infarct localized in the left internal capsule. There is also the evolving previous infarct in the dorsum of the left jennifer. Mr. Harrison is obviously depressed about all of this and his mood is down. However he reports no additional deficits today. Objective - Constitutional Vitals: Temp Pulse Resp BP Pulse Ox 98 F 96 16 115/75 91 12/09/16 16:03 12/09/16 16:03 12/09/16 16:03 12/09/16 16:03 12/09/16 16:03 - Neurological Exam Sensorimotor examination: Present: other (Decreased sensation to pinprick in the distal to proximal gradient.) Motor examination - left side: 5/5: deltoids, biceps, triceps, wrist flexion, wrist extension, hip flexors, manager of software development, quadriceps, tibialis Anterior, toe extension (EHL), plantarflexion Mental Status Examination: Present: awake, alert, oriented to person, oriented to place, oriented to time, follows commands appropriately, answers questions appropriately, no agnosia, no aphasia, no aproxia Cranial nerve examination: Present: PERRL, EOMI, visual mclaughlin intact, corneal reflexes brisk symmetrically, sensory to face intact, mastication intact, no facial asymmetry is present, no dysarthria, hearing is intact symmetrically, soft palate elevates bilaterally upon phonation, gag reflex intact, flexes SCM and trapezius muscles symmetrically with full power, tongue protrudes midline, no atrophy or facial fasiculations present Additional comments: Neurologic examination today finds that Mr. Harrison is alert and oriented, follows commands appropriately. There is no agnosia, aphasia, or apraxia. Judgment and abstract thinking are intact. Cranial nerve exam-pupils are equal and reactive to light and accommodation, extraocular motility is intact is no ptosis. Sensory to face is intact, mastication is intact, there is no facial asymmetry identified. Speech is not dysarthric. Hearing is intact. Tongue protrudes midline. Motor exam-he has minor weakness of the right upper and right lower extremity at about 4/5. He has normal strength of the left upper and left lower extremities. He has normal bulk and tone throughout. Results - Laboratory Findings CBC and BMP: 12/09/16 03:34 12/09/16 03:34 Abnormal lab findings: Abnormal lab results PT 13.3 Seconds (9.4-12.1) H 12/08/16 19:03 Glucose 122 mg/dL (70-99) H 12/09/16 03:34 POC Glucose 139 (58-89) H 12/09/16 07:14 Hemoglobin A1c 6.7 % (-5.6) H 12/08/16 02:02 Triglycerides 217 mg/dL (< 150) H 12/09/16 03:34 VLDL Cholesterol, Calc 43 mg/dL (< 31) H 12/09/16 03:34 HDL Cholesterol 35 mg/dL (40-59) L 12/09/16 03:34 Consult Discharge Plan - Plan Referrals: Maggie Navarro MD [Primary Care Provider] -
[2016-12-09] MEDS: *HR* Warfarin 5 MG TABLET PO SCH (18:42)
[2016-12-09] MEDS: traMADol 50 MG TABLET PO PRN (18:42)
[2016-12-09] MEDS: Albuterol 2.5 MG/3 ML NEBULIZER IH PRN (20:23)
[2016-12-10 02:03] LABS: INR 1.3; Prothrombin Time 13.6 Seconds (9.4-12.1)
[2016-12-10 02:05] LABS: Activated Partial Thrombo Time 63.6 Seconds (26.0-36.0)
[2016-12-10 02:10] LABS: Basophils # 0.1 K/mcL (0.0-0.2); Basophils % 0.9 %; Eosinophils # 0.3 K/mcL (0.0-0.6); Eosinophils % 2.4 %; Hematocrit 41.7 % (37.5-50.1); Lymphocytes # 2.2 K/mcL (0.6-4.6); Lymphocytes % 21.4 %; Mean Corpuscular HGB Conc 33.6 g/dL (31.6-35.5); Mean Corpuscular Volume 86.3 fL (83.0-100.0); Monocytes # 0.7 K/mcL (0.0-1.3); Monocytes % 6.5 %; Neutrophils # 7.1 K/mcL (1.6-8.9); Platelet Count 216 K/mcL (140-400); Red Blood Count 4.83 M/mcL (4.19-5.50); Red Cell Distribution Width 12.4 % (11.5-14.5); Segmented Neutrophils % 67.8 %
[2016-12-10 02:21] LABS: BUN/Creatinine Ratio 15 (6-26); Blood Urea Nitrogen 13 mg/dL (8-26); Calcium 9.7 mg/dL (8.6-10.8); Carbon Dioxide 28 mEq/L (19-29); Chloride 104 mEq/L (98-109); Glucose 127 mg/dL (70-99); Osmolality,Calculated 288 (280-300); Potassium 3.8 mEq/L (3.5-4.5); Sodium 138 mEq/L (136-145); eGFR For African Americans > 60 (> 60); eGFR For Non-African Americans > 60 (> 60)
[2016-12-10] MEDS: traMADol 50 MG TABLET PO PRN ×3 (03:45→20:57)
[2016-12-10] MEDS: Albuterol 2.5 MG/3 ML NEBULIZER IH PRN ×3 (04:04→20:39)
[2016-12-10] MEDS: Heparin 25,000 UNIT/500 ML D5W 25,000 UNIT/500 ML MLS IVC SCH (04:47)
[2016-12-10] MEDS: Multivit/Ca/Min/Fe/FA 1 TAB TABLET PO SCH (08:00)
[2016-12-10] MEDS: Aspirin Enteric Coated 325 MG Tablet PO SCH (08:00)
[2016-12-10] MEDS: Loratadine 10 MG TABLET PO SCH (08:01)
[2016-12-10] MEDS: Fluticasone Propionate Nasal 50 MCG/SPRAY BOTTLE NS SCH (08:01)
[2016-12-10] MEDS: Insulin LISPRO 300 UNITS/3 ML VIAL SQ SCH ×3 (08:01→16:32)
[2016-12-10] MEDS: Budesonide/Formoterol 80/4.5 MDI IH SCH (08:10)
--- NOTE | 2016-12-10 09:36 | Internal Med Progress Note ---
<Luann Krishnamurthy - Last Filed: 12/10/16 17:30> Date of Encounter: 12/10/16 Time of Encounter: 09:15 - Assessment and plan (1) Cerebrovascular accident Current Visit: Yes Status: Acute Assessment and plan: -MRI of head- new left internal capsule infarct - Patient stated he had a CVA approximately one month ago, and has been on aspirin and Plavix. - Patient has a factor V mutation - Head CT revealed no acute process - CTA head/neck- unremarkable - Neurology and Onc. consulted, appreciate recommendations. Plan: -heparin and coumadin bridge- Day 2 -Per Oncology recommendation- 5 days of heparin drip and therapeutic INR for 2 days then patient may be discharged -Stroke Protocol order should be implemented Qualifiers: CVA mechanism: unspecified Qualified Code(s): I63.9 - Cerebral infarction, unspecified (2) Right sided weakness Current Visit: Yes Status: Acute Assessment and plan: - Right-sided weakness in arm and leg unchanged since previous CVA - PT/OT - Recommended inpatient rehabilitation upon discharge and patient agrees - Social work consulted- Working on outpatient rehabilitation at [place]. 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 - Constitutional Vitals: Temp Pulse Resp BP Pulse Ox 98.2 F 97 17 130/80 95 12/10/16 06:57 12/10/16 06:57 12/10/16 06:57 12/10/16 06:57 12/10/16 06:57 General appearance: Present: cooperative, A&O X 3, pleasant, no acute distress, answers questions appropriately Exam: Gen.: Vitals noted. No acute distress. AAOx3 HEENT: pink conjunctiva, oropharynx clear, Normocephalic, atraumatic Neck: Supple. No adenopathy. Cardiac: RRR, no murmur, +S1/S2 Pulmonary: CTA bilaterally, no wheezes, rales or rhonchi, equal chest expansion Abdomen: soft, nontender, Bowel sounds noted, no guarding Back: Nontender throughout. Extremities: no BLE edema, nontender calf, no cyanosis or clubbing Neuro: A&Ox3, moves all extremities, no change in sensation Psych: Appropriate mood and behavior Internal Medicine: Result - Labs CBC & Chem 7: 12/10/16 01:33 12/10/16 01:33 Labs: Short CBC 12/10/16 Range/Units 01:33 WBC 10.4 (4.3-11.1) K/mcL Hgb 14.0 (12.9-16.9) g/dL Hct 41.7 (37.5-50.1) % Plt Count 216 (140-400) K/mcL Neutrophils # 7.1 (1.6-8.9) K/mcL BMP 12/10/16 01:33 Sodium 138 Potassium 3.8 Chloride 104 Carbon Dioxide 28 BUN 13 Creatinine 0.88 Glucose 127 H Calcium 9.7 - ABG Interpretation ABG results: PT/INR, D-dimer PT 13.6 Seconds (9.4-12.1) H 12/10/16 01:33 - Impressions Impressions Chest X-Ray 12/10/16 04:31 IMPRESSION: No acute abnormality. D/ / Darren Charlton MD / Darren Charlton MD Interpreting Provider: Darren Charlton MD Consult Discharge Plan - Plan Referrals: Maggie Navarro MD [Primary Care Provider] - <Stuart Eduardo P - Last Filed: 12/10/16 18:25> Date of Encounter: 12/10/16 - Constitutional Vitals: Temp Pulse Resp BP Pulse Ox 97.7 F 89 17 115/80 95 12/10/16 15:49 12/10/16 15:49 12/10/16 15:49 12/10/16 15:49 12/10/16 15:49 Internal Medicine: Result - Labs CBC & Chem 7: 12/10/16 01:33 12/10/16 01:33 Labs: Short CBC 12/10/16 Range/Units 01:33 WBC 10.4 (4.3-11.1) K/mcL Hgb 14.0 (12.9-16.9) g/dL Hct 41.7 (37.5-50.1) % Plt Count 216 (140-400) K/mcL Neutrophils # 7.1 (1.6-8.9) K/mcL BMP 12/10/16 01:33 Sodium 138 Potassium 3.8 Chloride 104 Carbon Dioxide 28 BUN 13 Creatinine 0.88 Glucose 127 H Calcium 9.7 - ABG Interpretation ABG results: PT/INR, D-dimer PT 13.6 Seconds (9.4-12.1) H 12/10/16 01:33 - Impressions Impressions Chest X-Ray 12/10/16 04:31 IMPRESSION: No acute abnormality. D/ / Darren Charlton MD / Darren Charlton MD Interpreting Provider: Darren Charlton MD - Attending Attestation I examined this patient and my medical decision-making was reviewed with the Resident Physician. I agree with the documented findings, disposition and treatment plan as described except to the extent set forth below. Appreciate neurology/hematology recommendation. Patient will be here for heparin and Coumadin bridging. Anticipated length of stay 3-5 days.
[2016-12-10] MEDS: *HR* Warfarin 5 MG TABLET PO SCH (17:07)
[2016-12-11] MEDS: Heparin 25,000 UNIT/500 ML D5W 25,000 UNIT/500 ML MLS IVC SCH ×2 (03:34→15:46)
[2016-12-11] MEDS: Albuterol 2.5 MG/3 ML NEBULIZER IH PRN ×2 (04:06→22:33)
[2016-12-11 07:33] LABS: Basophils # 0.1 K/mcL (0.0-0.2); Basophils % 0.7 %; Eosinophils # 0.2 K/mcL (0.0-0.6); Eosinophils % 2.2 %; Hematocrit 44.9 % (37.5-50.1); Hemoglobin 14.8 g/dL (12.9-16.9); Immature Granulocytes % 1.3 % (0-4); Lymphocytes # 1.8 K/mcL (0.6-4.6); Lymphocytes % 19.2 %; Mean Corpuscular Hemoglobin 28.4 pg (28.0-33.3); Mean Corpuscular Volume 86.2 fL (83.0-100.0); Mean Platelet Volume 9.6 fL (9.4-12.4); Monocytes # 0.6 K/mcL (0.0-1.3); Monocytes % 6.7 %; Neutrophils # 6.4 K/mcL (1.6-8.9); Platelet Count 262 K/mcL (140-400); Red Blood Count 5.21 M/mcL (4.19-5.50); Red Cell Distribution Width 12.6 % (11.5-14.5); Segmented Neutrophils % 69.9 %
[2016-12-11 07:42] LABS: INR 1.3; Prothrombin Time 14.2 Seconds (9.4-12.1)
[2016-12-11 07:45] LABS: Activated Partial Thrombo Time 65.7 Seconds (26.0-36.0)
[2016-12-11] MEDS: Budesonide/Formoterol 80/4.5 MDI IH SCH (07:50)
[2016-12-11 07:51] LABS: BUN/Creatinine Ratio 11 (6-26); Blood Urea Nitrogen 11 mg/dL (8-26); Calcium 9.9 mg/dL (8.6-10.8); Carbon Dioxide 28 mEq/L (19-29); Chloride 103 mEq/L (98-109); Glucose 154 mg/dL (70-99); Osmolality,Calculated 288 (280-300); Sodium 138 mEq/L (136-145); eGFR For African Americans > 60 (> 60); eGFR For Non-African Americans > 60 (> 60)
[2016-12-11] MEDS: traMADol 50 MG TABLET PO PRN (08:02)
[2016-12-11] MEDS: Aspirin Enteric Coated 325 MG Tablet PO SCH (08:02)
[2016-12-11] MEDS: Fluticasone Propionate Nasal 50 MCG/SPRAY BOTTLE NS SCH (08:03)
[2016-12-11] MEDS: Multivit/Ca/Min/Fe/FA 1 TAB TABLET PO SCH (08:03)
[2016-12-11] MEDS: Loratadine 10 MG TABLET PO SCH (08:03)
[2016-12-11] MEDS: Insulin LISPRO 300 UNITS/3 ML VIAL SQ SCH ×3 (08:42→19:02)
--- NOTE | 2016-12-11 09:38 | Internal Med Progress Note ---
<Luann Krishnamurthy - Last Filed: 12/11/16 09:34> Date of Encounter: 12/11/16 Time of Encounter: 08:45 - Assessment and plan (1) Cerebrovascular accident Current Visit: Yes Status: Acute Assessment and plan: 12/11/2016 -PT 14.2 INR- 1.3 APTT-65.7 -heparin and coumadin bridge- Day 3 -Patient only complains of short term headache that pulsates when he coughs. Started last night. Patient believes it is due to allergies. We will continue to monitor. -Coumadin diet -Patient is tolerating treatment well -Will continue to monitor INR and possible discharge in 2-4 days 12/10/2016 -MRI of head- new left internal capsule infarct - Patient stated he had a CVA approximately one month ago, and has been on aspirin and Plavix. - Patient has a factor V mutation - Head CT revealed no acute process - CTA head/neck- unremarkable - Neurology and Onc. consulted, appreciate recommendations. Plan: -heparin and coumadin bridge- Day 2 -Per Oncology recommendation- 5 days of heparin drip and therapeutic INR for 2 days then patient may be discharged -Stroke Protocol order should be implemented Qualifiers: CVA mechanism: unspecified Qualified Code(s): I63.9 - Cerebral infarction, unspecified (2) Right sided weakness Current Visit: Yes Status: Acute Assessment and plan: - Right-sided weakness in arm and leg unchanged since previous CVA - Sensation intact -no new gross deficits - PT/OT - Recommended inpatient rehabilitation upon discharge and patient agrees - Social work consulted- Working on outpatient rehabilitation at [place]. 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 He denies dyspnea, nausea, vomiting, denies chest pain, change in vision. His only complaint is that he gets a short term headache when he coughs which started last night. He believes is due to allergies. Nurse denies any falls last night. - Constitutional Vitals: Temp Pulse Resp BP Pulse Ox 97.6 F 103 17 131/87 91 12/11/16 07:19 12/11/16 07:19 12/11/16 07:52 12/11/16 07:19 12/11/16 07:52 General appearance: Present: cooperative, A&O X 3, pleasant, no acute distress, answers questions appropriately Exam: Gen.: Vitals noted. No acute distress. AAOx3 HEENT: PERRL/EOMI, oropharynx clear, Normocephalic, atraumatic Neck: Supple. No adenopathy. Cardiac: RRR, no murmur, +S1/S2 Pulmonary: CTA bilaterally, no wheezes, rales or rhonchi, equal chest expansion Abdomen: soft, nontender, Bowel sounds noted, no guarding MSK: ROM intact, no joint swelling noted, strength 5/5 Extremities: no BLE edema, nontender calf, no cyanosis or clubbing Neuro: A&Ox3, moves all extremities, no focal deficits, sensation intact Internal Medicine: Result - Labs CBC & Chem 7: 12/11/16 07:27 12/11/16 07:27 Labs: Short CBC 12/11/16 Range/Units 07:27 WBC 9.1 (4.3-11.1) K/mcL Hgb 14.8 (12.9-16.9) g/dL Hct 44.9 (37.5-50.1) % Plt Count 262 (140-400) K/mcL Neutrophils # 6.4 (1.6-8.9) K/mcL BMP 12/11/16 07:27 Sodium 138 Potassium 4.0 Chloride 103 Carbon Dioxide 28 BUN 11 Creatinine 1.01 Glucose 154 H Calcium 9.9 - ABG Interpretation ABG results: PT/INR, D-dimer PT 14.2 Seconds (9.4-12.1) H 12/11/16 07:27 Consult Discharge Plan - Plan Referrals: Maggie Navarro MD [Primary Care Provider] - <Stuart Eduardo P - Last Filed: 12/11/16 18:14> Date of Encounter: 12/11/16 - Constitutional Vitals: Temp Pulse Resp BP Pulse Ox 98.0 F 90 17 135/94 94 12/11/16 15:27 12/11/16 15:27 12/11/16 15:27 12/11/16 15:27 12/11/16 15:27 Internal Medicine: Result - Labs CBC & Chem 7: 12/11/16 07:27 12/11/16 07:27 Labs: Short CBC 12/11/16 Range/Units 07:27 WBC 9.1 (4.3-11.1) K/mcL Hgb 14.8 (12.9-16.9) g/dL Hct 44.9 (37.5-50.1) % Plt Count 262 (140-400) K/mcL Neutrophils # 6.4 (1.6-8.9) K/mcL BMP 12/11/16 07:27 Sodium 138 Potassium 4.0 Chloride 103 Carbon Dioxide 28 BUN 11 Creatinine 1.01 Glucose 154 H Calcium 9.9 - ABG Interpretation ABG results: PT/INR, D-dimer PT 14.2 Seconds (9.4-12.1) H 12/11/16 07:27 - Attending Attestation I examined this patient and my medical decision-making was reviewed with the Resident Physician. I agree with the documented findings, disposition and treatment plan as described except to the extent set forth below. awaiting for [place] current INR 1.3
[2016-12-11] MEDS: *HR* Warfarin 7.5 MG TABLET PO SCH (18:09)
[2016-12-12] MEDS: Heparin 25,000 UNIT/500 ML D5W 25,000 UNIT/500 ML MLS IVC SCH ×2 (02:54→14:41)
[2016-12-12] MEDS: Albuterol 2.5 MG/3 ML NEBULIZER IH PRN (03:47)
[2016-12-12] MEDS ORDERED: Furosemide 40 MG/4 ML VIAL IVP ONE (04:13)
[2016-12-12] MEDS: Budesonide/Formoterol 80/4.5 MDI IH SCH (08:19)
[2016-12-12 08:36] LABS: Basophils # 0.1 K/mcL (0.0-0.2); Basophils % 0.8 %; Eosinophils # 0.2 K/mcL (0.0-0.6); Hematocrit 43.9 % (37.5-50.1); Hemoglobin 14.2 g/dL (12.9-16.9); Immature Granulocytes % 1.4 % (0-4); Lymphocytes # 1.9 K/mcL (0.6-4.6); Lymphocytes % 20.3 %; Mean Corpuscular HGB Conc 32.3 g/dL (31.6-35.5); Mean Corpuscular Hemoglobin 27.9 pg (28.0-33.3); Mean Corpuscular Volume 86.2 fL (83.0-100.0); Mean Platelet Volume 10.2 fL (9.4-12.4); Monocytes # 0.6 K/mcL (0.0-1.3); Neutrophils # 6.3 K/mcL (1.6-8.9); Platelet Count 235 K/mcL (140-400); Red Blood Count 5.09 M/mcL (4.19-5.50); Red Cell Distribution Width 12.6 % (11.5-14.5); Segmented Neutrophils % 68.5 %
[2016-12-12 08:37] LABS: INR 1.5; Prothrombin Time 16.1 Seconds (9.4-12.1)
[2016-12-12] MEDS: Fluticasone Propionate Nasal 50 MCG/SPRAY BOTTLE NS SCH (08:43)
[2016-12-12] MEDS: Insulin LISPRO 300 UNITS/3 ML VIAL SQ SCH ×3 (08:44→17:05)
[2016-12-12] MEDS: Loratadine 10 MG TABLET PO SCH (08:44)
[2016-12-12] MEDS: Multivit/Ca/Min/Fe/FA 1 TAB TABLET PO SCH (08:44)
[2016-12-12] MEDS: Aspirin Enteric Coated 325 MG Tablet PO SCH (08:44)
[2016-12-12 09:16] LABS: BUN/Creatinine Ratio 11 (6-26); Blood Urea Nitrogen 11 mg/dL (8-26); Calcium 10.2 mg/dL (8.6-10.8); Carbon Dioxide 27 mEq/L (19-29); Chloride 105 mEq/L (98-109); Glucose 146 mg/dL (70-99); Osmolality,Calculated 290 (280-300); Potassium 4.1 mEq/L (3.5-4.5); Sodium 139 mEq/L (136-145); eGFR For African Americans > 60 (> 60); eGFR For Non-African Americans > 60 (> 60)
--- NOTE | 2016-12-12 13:34 | Oncology Inp Progress Note ---
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 In view of the additional risk of hemorrhagic complications ( in view of his recent CVA) if we overlapd heparin drip with coumadin ( while INR is therapeutic or supratherapeutic), I would recommend to discontinue heparin drip ONCE his INR has been therapeutic ( 2.0 or above) x 1. Please call me for questions. Nakul Banuelos MD (2) Cerebrovascular accident Current Visit: Yes Status: Acute Assessment and plan: As per neurology recommendations. Qualifiers: CVA mechanism: unspecified Qualified Code(s): I63.9 - Cerebral infarction, unspecified Oncology: Subj Interval history: N/A - Constitutional Vitals: Vital Signs Temp Pulse Resp BP Pulse Ox 12/12/16 11:28 97.7 F 89 16 112/75 96 12/12/16 08:44 96 12/12/16 07:21 97.4 F L 107 18 137/94 93 12/12/16 03:47 18 98 12/12/16 03:01 97.7 F 94 18 126/70 96 12/11/16 22:47 97.7 F 89 20 118/79 90 12/11/16 22:34 18 96 12/11/16 18:41 98.1 F 98 16 140/87 97 12/11/16 15:27 98.0 F 90 17 135/94 94 Intake and Output 12/11/16 12/12/16 12/12/16 23:59 07:59 15:59 Intake Total 120 / 120 500 / 500 273 / 273 Output Total 675 / 675 650 / 650 Balance -555 / -555 -150 / -150 273 / 273 Intake: IV Fluids 500 / 500 273 / 273 Heparin 25,000 UNIT/500 500 / 500 273 / 273 ML D5W 25,000 unit In 500 ml @ 6.3 UNITS/KG/HR 19. 908 mls/hr IVC .Q24H CHRISTY Rx#:[id number] Oral 120 / 120 Output: Urine 675 / 675 650 / 650 Other: Meal Dinner Breakfast Percent of Meal Consumed 100% 100% Weight 155.3 kg Blood Glucose* 120 174 155 Patient Weight 12/12/16 23:59 Weight 155.3 kg Oncology: Obj Data - Labs CBC & Chem 7: 12/12/16 07:35 12/12/16 07:35 Labs: Laboratory Results - last 24 hr 12/11/16 12/11/16 12/11/16 07:22 11:13 15:30 WBC RBC Hgb Hct MCV MCH MCHC RDW Plt Count MPV Immature Gran % Seg Neutrophils % Lymphocytes % Monocytes % Eosinophils % Basophils % Neutrophils # Lymphocytes # Monocytes # Eosinophils # Basophils # PT INR APTT Sodium Potassium Chloride Carbon Dioxide BUN Creatinine Est GFR ( Amer) Est GFR (Non-Af Amer) BUN/Creatinine Ratio Glucose POC Glucose 168 H 127 H 141 H Calculated Osmolality Calcium 12/11/16 12/12/16 12/12/16 20:32 07:35 07:35 WBC 9.2 RBC 5.09 Hgb 14.2 Hct 43.9 MCV 86.2 MCH 27.9 L MCHC 32.3 RDW 12.6 Plt Count 235 MPV 10.2 Immature Gran % 1.4 Seg Neutrophils % 68.5 Lymphocytes % 20.3 Monocytes % 7.0 Eosinophils % 2.0 Basophils % 0.8 Neutrophils # 6.3 Lymphocytes # 1.9 Monocytes # 0.6 Eosinophils # 0.2 Basophils # 0.1 PT INR APTT 62.6 H Sodium Potassium Chloride Carbon Dioxide BUN Creatinine Est GFR ( Amer) Est GFR (Non-Af Amer) BUN/Creatinine Ratio Glucose POC Glucose 120 H Calculated Osmolality Calcium 12/12/16 12/12/16 12/12/16 07:35 07:35 13:06 WBC RBC Hgb Hct MCV MCH MCHC RDW Plt Count MPV Immature Gran % Seg Neutrophils % Lymphocytes % Monocytes % Eosinophils % Basophils % Neutrophils # Lymphocytes # Monocytes # Eosinophils # Basophils # PT 16.1 H INR 1.5 APTT 76.8 H Sodium 139 Potassium 4.1 Chloride 105 Carbon Dioxide 27 BUN 11 Creatinine 1.01 Est GFR ( Amer) > 60 Est GFR (Non-Af Amer) > 60 BUN/Creatinine Ratio 11 Glucose 146 H POC Glucose Calculated Osmolality 290 Calcium 10.2 - ABG Interpretation ABG results: PT/INR, D-dimer PT 16.1 Seconds (9.4-12.1) H 12/12/16 07:35 Consult Discharge Plan - Plan Referrals: Maggie Navarro MD [Primary Care Provider] -
--- NOTE | 2016-12-12 14:21 | Internal Med Progress Note ---
<Luann Krishnamurthy - Last Filed: 12/12/16 14:17> Date of Encounter: 12/12/16 Time of Encounter: 13:00 - Assessment and plan (1) Cerebrovascular accident Current Visit: Yes Status: Acute Assessment and plan: -PT 16.4 INR- 1.5 APTT-76.8 -MRI of head- new left internal capsule infarct - Patient has a heterozygous for prothrombin [id number] mutation - Patient stated he had a CVA approximately one month ago, and has been on aspirin and Plavix. - Head CT revealed no acute process - CTA head/neck- unremarkable - Neurology and Onc. consulted, appreciate recommendations. Plan: -heparin and coumadin bridge- Day 4 -Coumadin diet -Patient is tolerating treatment well -Will continue to monitor INR and possible discharge in 2-4 days -Per Oncology recommendation- Discontinue heparin drip once therapeutic INR ( 2.0 or above) for one day. Qualifiers: CVA mechanism: unspecified Qualified Code(s): I63.9 - Cerebral infarction, unspecified (2) Right sided weakness Current Visit: Yes Status: Acute Assessment and plan: - Right-sided weakness in arm and leg unchanged since previous CVA - Sensation intact -no new gross deficits - PT/OT - Recommended inpatient rehabilitation upon discharge and patient agrees - Social work consulted- Working on outpatient rehabilitation at [facility]. 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 He denies nausea, vomiting, denies chest pain, change in vision, headache he admits to dyspnea last night. He is tired of being in the hospital is wanting to go home soon - Constitutional Vitals: Temp Pulse Resp BP Pulse Ox 97.7 F 89 16 112/75 96 12/12/16 11:28 12/12/16 11:28 12/12/16 11:28 12/12/16 11:28 12/12/16 11:28 General appearance: Present: cooperative, A&O X 3, pleasant, no acute distress, answers questions appropriately Exam: Gen.: Vitals noted. No acute distress. AAOx3 HEENT: PERRL/EOMI, oropharynx clear, Normocephalic, atraumatic Neck: Supple. No adenopathy. Cardiac: RRR, no murmur, +S1/S2 Pulmonary: CTA bilaterally, no wheezes, rales or rhonchi, equal chest expansion Abdomen: soft, nontender, Bowel sounds noted, no guarding Back: Nontender throughout. Extremities: no BLE edema, nontender calf, no cyanosis or clubbing Neuro: A&Ox3, moves all extremities, weakness in right upper and lower extremity , sensation intact Psych: Appropriate mood and behavior Internal Medicine: Result - Labs CBC & Chem 7: 12/12/16 07:35 12/12/16 07:35 Labs: Short CBC 12/12/16 Range/Units 07:35 WBC 9.2 (4.3-11.1) K/mcL Hgb 14.2 (12.9-16.9) g/dL Hct 43.9 (37.5-50.1) % Plt Count 235 (140-400) K/mcL Neutrophils # 6.3 (1.6-8.9) K/mcL BMP 12/12/16 07:35 Sodium 139 Potassium 4.1 Chloride 105 Carbon Dioxide 27 BUN 11 Creatinine 1.01 Glucose 146 H Calcium 10.2 - ABG Interpretation ABG results: PT/INR, D-dimer PT 16.1 Seconds (9.4-12.1) H 12/12/16 07:35 Consult Discharge Plan - Plan Referrals: Maggie Navarro MD [Primary Care Provider] - <Stuart Eduardo P - Last Filed: 12/12/16 17:22> Date of Encounter: 12/12/16 - Constitutional Vitals: Temp Pulse Resp BP Pulse Ox 98.0 F 88 16 120/75 96 12/12/16 15:00 12/12/16 15:00 12/12/16 15:00 12/12/16 15:00 12/12/16 15:00 Internal Medicine: Result - Labs CBC & Chem 7: 12/12/16 07:35 12/12/16 07:35 Labs: Short CBC 12/12/16 Range/Units 07:35 WBC 9.2 (4.3-11.1) K/mcL Hgb 14.2 (12.9-16.9) g/dL Hct 43.9 (37.5-50.1) % Plt Count 235 (140-400) K/mcL Neutrophils # 6.3 (1.6-8.9) K/mcL BMP 12/12/16 07:35 Sodium 139 Potassium 4.1 Chloride 105 Carbon Dioxide 27 BUN 11 Creatinine 1.01 Glucose 146 H Calcium 10.2 - ABG Interpretation ABG results: PT/INR, D-dimer PT 16.1 Seconds (9.4-12.1) H 12/12/16 07:35 - Attending Attestation I examined this patient and my medical decision-making was reviewed with the Resident Physician. I agree with the documented findings, disposition and treatment plan as described except to the extent set forth below. Hematology input appreciated
[2016-12-12] MEDS: traMADol 50 MG TABLET PO PRN (14:44)
[2016-12-12] MEDS: *HR* Warfarin 7.5 MG TABLET PO SCH (18:27)
[2016-12-13 01:42] LABS: Basophils # 0.1 K/mcL (0.0-0.2); Basophils % 0.8 %; Eosinophils # 0.3 K/mcL (0.0-0.6); Eosinophils % 2.7 %; Hematocrit 40.9 % (37.5-50.1); Hemoglobin 13.7 g/dL (12.9-16.9); Immature Granulocytes % 1.2 % (0-4); Lymphocytes # 2.2 K/mcL (0.6-4.6); Lymphocytes % 20.4 %; Mean Corpuscular HGB Conc 33.5 g/dL (31.6-35.5); Mean Corpuscular Volume 86.7 fL (83.0-100.0); Mean Platelet Volume 9.8 fL (9.4-12.4); Monocytes # 0.8 K/mcL (0.0-1.3); Monocytes % 7.5 %; Neutrophils # 7.1 K/mcL (1.6-8.9); Platelet Count 215 K/mcL (140-400); Red Blood Count 4.72 M/mcL (4.19-5.50); Red Cell Distribution Width 12.8 % (11.5-14.5); Segmented Neutrophils % 67.4 %
[2016-12-13 01:49] LABS: INR 1.6
[2016-12-13 01:52] LABS: Activated Partial Thrombo Time 78.4 Seconds (26.0-36.0)
[2016-12-13] MEDS: Heparin 25,000 UNIT/500 ML D5W 25,000 UNIT/500 ML MLS IVC SCH ×3 (01:55→23:56)
[2016-12-13 01:58] LABS: BUN/Creatinine Ratio 11 (6-26); Blood Urea Nitrogen 11 mg/dL (8-26); Calcium 9.5 mg/dL (8.6-10.8); Carbon Dioxide 29 mEq/L (19-29); Chloride 105 mEq/L (98-109); Glucose 133 mg/dL (70-99); Osmolality,Calculated 289 (280-300); Potassium 3.8 mEq/L (3.5-4.5); Sodium 139 mEq/L (136-145); eGFR For African Americans > 60 (> 60); eGFR For Non-African Americans > 60 (> 60)
[2016-12-13] MEDS: Budesonide/Formoterol 80/4.5 MDI IH SCH (08:09)
[2016-12-13] MEDS: Insulin LISPRO 300 UNITS/3 ML VIAL SQ SCH ×3 (08:49→16:08)
[2016-12-13] MEDS: Loratadine 10 MG TABLET PO SCH (08:49)
[2016-12-13] MEDS: Aspirin Enteric Coated 325 MG Tablet PO SCH (08:49)
[2016-12-13] MEDS: Multivit/Ca/Min/Fe/FA 1 TAB TABLET PO SCH (08:49)
[2016-12-13] MEDS: Fluticasone Propionate Nasal 50 MCG/SPRAY BOTTLE NS SCH ×2 (08:51→16:07)
--- NOTE | 2016-12-13 11:18 | Internal Med Progress Note ---
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 - Head CT revealed no acute process - CTA head/neck- unremarkable - Neurology and Onc. consulted, appreciate recommendations. Plan: -heparin and coumadin bridge- Day 5 -Coumadin diet -Patient is tolerating treatment well -Will continue to monitor INR -Per Oncology recommendation- Discontinue heparin drip once therapeutic INR ( 2.0 or above) for one day. Qualifiers: CVA mechanism: unspecified Qualified Code(s): I63.9 - Cerebral infarction, unspecified (2) Right sided weakness Current Visit: Yes Status: Acute Assessment and plan: - Right-sided weakness in arm and leg unchanged since previous CVA - Sensation intact -no new gross deficits - PT/OT - Recommended inpatient rehabilitation upon discharge and patient agrees - Social work consulted- Working on outpatient rehabilitation at [facility]. 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 He still has numbness and tingling in hands and feet that have been present since his first CVA. He denies vomiting, denies chest pain, change in vision, headache he admits to constipation for the past 2 days and nausea this morning. He requested something for constipation. - Constitutional Vitals: Temp Pulse Resp BP Pulse Ox 98.1 F 86 16 123/77 94 12/13/16 11:09 12/13/16 11:09 12/13/16 11:09 12/13/16 11:09 12/13/16 11:09 General appearance: Present: cooperative, A&O X 3, pleasant, no acute distress, answers questions appropriately Exam: Gen.: Vitals noted. No acute distress. AAOx3 HEENT: PERRL/EOMI, oropharynx clear, Normocephalic, atraumatic Neck: Supple. No adenopathy. Cardiac: RRR, no murmur, +S1/S2 Pulmonary: CTA bilaterally, no wheezes, rales or rhonchi, equal chest expansion Abdomen: soft, nontender, Bowel sounds noted, no guarding Back: Nontender throughout. Extremities: no BLE edema, nontender calf, no cyanosis or clubbing Neuro: A&Ox3, moves all extremities, sensation intact Psych: Appropriate mood and behavior Internal Medicine: Result - Labs CBC & Chem 7: 12/13/16 01:35 12/13/16 01:35 Labs: Short CBC 12/13/16 Range/Units 01:35 WBC 10.5 (4.3-11.1) K/mcL Hgb 13.7 (12.9-16.9) g/dL Hct 40.9 (37.5-50.1) % Plt Count 215 (140-400) K/mcL Neutrophils # 7.1 (1.6-8.9) K/mcL BMP 12/13/16 01:35 Sodium 139 Potassium 3.8 Chloride 105 Carbon Dioxide 29 BUN 11 Creatinine 1.00 Glucose 133 H Calcium 9.5 - ABG Interpretation ABG results: PT/INR, D-dimer PT 18.0 Seconds (9.4-12.1) H 12/13/16 01:35 Consult Discharge Plan - Plan Referrals: Maggie Navarro MD [Primary Care Provider] - <Stuart Eduardo P - Last Filed: 12/13/16 17:03> Date of Encounter: 12/13/16 - Constitutional Vitals: Temp Pulse Resp BP Pulse Ox 97.6 F 84 16 122/86 92 12/13/16 15:06 12/13/16 15:06 12/13/16 15:06 12/13/16 15:06 12/13/16 15:06 Internal Medicine: Result - Labs CBC & Chem 7: 12/13/16 01:35 12/13/16 01:35 Labs: Short CBC 12/13/16 Range/Units 01:35 WBC 10.5 (4.3-11.1) K/mcL Hgb 13.7 (12.9-16.9) g/dL Hct 40.9 (37.5-50.1) % Plt Count 215 (140-400) K/mcL Neutrophils # 7.1 (1.6-8.9) K/mcL BMP 12/13/16 01:35 Sodium 139 Potassium 3.8 Chloride 105 Carbon Dioxide 29 BUN 11 Creatinine 1.00 Glucose 133 H Calcium 9.5 - ABG Interpretation ABG results: PT/INR, D-dimer PT 18.0 Seconds (9.4-12.1) H 12/13/16 01:35 - Impressions Impressions Head CT 12/13/16 15:05 IMPRESSION: No acute intracranial abnormality. No acute intracranial hemorrhage. Evolving small nonhemorrhagic infarct involving the posterior limb of left internal capsule and adjacent left thalamus. Moderate chronic ischemic white matter changes with several small old infarcts. No other significant change from the prior study. D/ / Zain Murillo MD / Zain Murillo MD Interpreting Provider: Zain Murillo MD - Attending Attestation I examined this patient and my medical decision-making was reviewed with the Resident Physician. I agree with the documented findings, disposition and treatment plan as described except to the extent set forth below. Patient was complaining of dizziness, vertigo . In view of ongoing heparin drip/Coumadin possibility of bleed was extremely high. CT head: No acute intracranial abnormality. No acute intracranial hemorrhage noted. Plan: We will continue present management.
[2016-12-13] MEDS: *HR* Warfarin 7.5 MG TABLET PO SCH (17:50)
[2016-12-13] MEDS: Albuterol 2.5 MG/3 ML NEBULIZER IH PRN (22:00)
[2016-12-14] MEDS: traMADol 50 MG TABLET PO PRN ×2 (04:04→08:50)
[2016-12-14] MEDS: Heparin 25,000 UNIT/500 ML D5W 25,000 UNIT/500 ML MLS IVC SCH (06:07)
[2016-12-14] MEDS: Budesonide/Formoterol 80/4.5 MDI IH SCH (08:10)
[2016-12-14] MEDS: Loratadine 10 MG TABLET PO SCH (08:50)
[2016-12-14] MEDS: Aspirin Enteric Coated 325 MG Tablet PO SCH (08:50)
[2016-12-14] MEDS: Multivit/Ca/Min/Fe/FA 1 TAB TABLET PO SCH (08:50)
[2016-12-14] MEDS: Insulin LISPRO 300 UNITS/3 ML VIAL SQ SCH ×2 (08:50→12:22)
[2016-12-14] MEDS: Fluticasone Propionate Nasal 50 MCG/SPRAY BOTTLE NS SCH (08:51)
[2016-12-14 09:31] LABS: Basophils # 0.1 K/mcL (0.0-0.2); Basophils % 0.8 %; Eosinophils # 0.2 K/mcL (0.0-0.6); Eosinophils % 1.8 %; Hematocrit 44.6 % (37.5-50.1); Hemoglobin 14.8 g/dL (12.9-16.9); Immature Granulocytes % 1.2 % (0-4); Lymphocytes # 1.9 K/mcL (0.6-4.6); Lymphocytes % 18.3 %; Mean Corpuscular HGB Conc 33.2 g/dL (31.6-35.5); Mean Corpuscular Hemoglobin 28.8 pg (28.0-33.3); Mean Corpuscular Volume 86.9 fL (83.0-100.0); Monocytes # 0.7 K/mcL (0.0-1.3); Monocytes % 6.8 %; Neutrophils # 7.5 K/mcL (1.6-8.9); Platelet Count 235 K/mcL (140-400); Red Blood Count 5.13 M/mcL (4.19-5.50); Red Cell Distribution Width 12.8 % (11.5-14.5); Segmented Neutrophils % 71.1 %
[2016-12-14 09:36] LABS: INR 2.2; Prothrombin Time 24.4 Seconds (9.4-12.1)
[2016-12-14 09:38] LABS: Activated Partial Thrombo Time 81.5 Seconds (26.0-36.0)
[2016-12-14 09:44] LABS: BUN/Creatinine Ratio 11 (6-26); Blood Urea Nitrogen 11 mg/dL (8-26); Calcium 10.2 mg/dL (8.6-10.8); Carbon Dioxide 29 mEq/L (19-29); Chloride 103 mEq/L (98-109); Glucose 150 mg/dL (70-99); Osmolality,Calculated 290 (280-300); Sodium 139 mEq/L (136-145); eGFR For African Americans > 60 (> 60); eGFR For Non-African Americans > 60 (> 60)
[2016-12-14] MEDS ORDERED: *HR* Morphine 2 MG/ML SYRINGE IVP PRN (10:01)
[2016-12-14] MEDS ORDERED: *HR* HYDROcodone/Acet 5/325 mg TABLET PO ONE (10:19)
[2016-12-14 11:05] VITALS: BP 134/84
--- NOTE | 2016-12-14 11:37 | Discharge Summary ---
<Luann Krishnamurthy - Last Filed: 12/14/16 12:30> Date of Encounter: 12/14/16 Time of Encounter: 11:20 - Discharge Diagnosis (1) Cerebrovascular accident Priority: Primary Status: Acute Comments: -PT 24.4 INR- 2.2 APTT-81.5 -patient denies any new changes in sight, strength, mobility -MRI of head- new left internal capsule infarct - Patient has a heterozygous for prothrombin [id number] mutation - Patient stated he had a CVA approximately one month ago, and has been on aspirin and Plavix. - Head CT revealed no acute process - CTA head/neck- unremarkable -heparin and coumadin bridge- Day 6 -Patient is tolerating treatment well -Per Oncology recommendation- Discontinue heparin drip once therapeutic INR ( 2.0 or above) for one day. - Will follow-up with the Coumadin clinic Qualifiers: CVA mechanism: unspecified Qualified Code(s): I63.9 - Cerebral infarction, unspecified (2) Right sided weakness Priority: Secondary Status: Acute Comments: - Right-sided weakness in arm and leg unchanged since previous CVA - Sensation intact -no new gross deficits - PT/OT - Recommended inpatient rehabilitation upon discharge and patient agrees - Social work set up outpatient rehabilitation at [facility]. 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: without custodial use Qualified Code(s): E11.9 - Type 2 diabetes mellitus without complications (5) DVT prophylaxis Priority: Secondary Status: Acute Comments: on the heparin- coumadin bridge - Discharge Medications Prescriptions: HYDROcodone/Acet 5/325 mg [[place] 5-325 mg] 1 tab PO Q8H PRN #12 tab PRN Reason: Pain Warfarin [Coumadin] 7.5 mg PO DAILY@1800 #30 tab Home Medications: Albuterol Neb [Proventil Neb] 2.5 mg IH TID PRN 11/16/16 [History] Albuterol Sulfate [Albuterol Inhaler] 2 puff IH Q4H PRN 11/16/16 [History] Aspirin [Ecotrin] 325 mg PO DAILY 11/16/16 [History] BuPROPion XL (24 HR) [Wellbutrin Xl] 150 mg PO DAILY 11/16/16 [History] Cetirizine HCl [Zyrtec] 10 mg PO DAILY 11/16/16 [History] Clopidogrel [Plavix] 75 mg PO DAILY 11/16/16 [History] Cyclobenzaprine [Flexeril] 10 mg PO HS PRN 11/16/16 [History] Diltiazem HCl [Diltiazem 24Hr Cd] 240 mg PO DAILY 11/16/16 [History] Fluticasone Propionate Nasal [Flonase] 100 mcg NS DAILY 11/16/16 [History] Fluticasone/Salmeterol [Advair 100-50 Diskus] 2 puff IH DAILY 11/16/16 [History] Glimepiride [Amaryl] 4 mg PO BID 11/16/16 [History] Levothyroxine Sodium [Synthroid] 274 mcg PO QAM 11/16/16 [History] Multivitamin [Multi-Day Vitamins] 1 tab PO DAILY 11/16/16 [History] [place]-3/Dha/Epa/Fish Oil [Fish Oil 1,000 mg Softgel] 1,000 mg PO DAILY 11/16/16 [History] Simvastatin [Zocor] 20 mg PO HS 11/16/16 [History] Sitagliptin Phos/Metformin HCl [Janumet 50-1,000 mg Tablet] 1 tab PO BID [History] Tramadol HCl [Ultram] 50 mg PO Q4H PRN 11/16/16 [History] Ubidecarenone [Co Q-10] 100 mg PO DAILY 11/16/16 [History] Valsartan/Hydrochlorothiazide [Diovan Hct 160-12.5 mg Tab] 0.5 each PO BID 11/16 [History] Exenatide Microspheres [Bydureon] 2 mg SQ WE 12/08/16 [History] Bisacodyl [Dulcolax] 5 mg PO DAILY PRN tab 12/14/16 [Rx] HYDROcodone/Acet 5/325 mg [[place] 5-325 mg] 1 tab PO Q8H PRN #12 tab 12/14/16 [Rx ] Warfarin [Coumadin] 7.5 mg PO DAILY@1800 #30 tab 12/14/16 [Rx] Allergies/Adverse Reactions: Allergies sulfamethoxazole [From Bactrim] Allergy (Verified 12/08/16 02:06) Hives trimethoprim [From Bactrim] Allergy (Verified 12/08/16 02:06) Hives atenolol Adverse Reaction (Verified 12/08/16 02:06) Palpitations Procedures/tests Complete & Pending: Procedures Performed prior 72 hours Category Date Time Status CT head/brain wo con [CT] Stat Cat Scan 12/13/16 15:05 Completed Date of admission: 12/09/16 15:52 Primary care physician: Maggie Navarro, Consults: 12/11/16 23:24 Consult for Pharmacy Education [CONS] Routine Reason for Consult: Patient started on coumadin and would like more information regarding diet and interactions. Call Completed: No Discharging clinician: Luann Krishnamurthy - Patient Status Disposition: Transfer Inpatient Rehab Fac Condition: Good Functional capacity at discharge: independent ambulation Overall status at discharge: patient is back to baseline - Discharge Instructions Follow Up With: Maggie Navarro MD [Primary Care Provider] - (Patient will need to follow up with coumadin clinic once [facility]. ) Forms: ED Satisfaction Letter - Diet and Activity Activity: ambulate only with your walker Diet: advance to your usual diet Interval History: Mr. Harrison is a 50 year old male who presented to the ER with complaints of worsening weakness, numbness, and paresthesias of his right arm and right leg since the evening. He recently had a stroke about 3 weeks ago and was recovering. He was taking aspirin, Plavix, Eliquest. He still had some residual numbness and paresthesias with minimal weakness of the right upper and lower extremities. He was recently diagnosed with prothrombin gene mutation. He denied any other focal deficits, speech, swallowing problems, headaches. MRI of head- new left internal capsule infarct. Head CT revealed no acute process. CTA head/neck- unremarkable. Oncology was consulted and gave recommendations for the heparin Coumadin bridge- He recommended that the heparin be continued until the INR reach a therapeutic level (2-3) and then the patient may be discharged with Coumadin and was to follow up with the Coumadin clinic. Neurology was consulted and assisted with the care of this patient. PT/OT - Recommended inpatient rehabilitation upon discharge. Social work began working on outpatient rehabilitation at [facility]. The patient fell while admitted and was assessed in no injury was found. He stated that he did not hit his head but slid down his bed. The patient denied headache, confusion, nausea, vomiting , new deficits, weakness, change in vision, pain. Later another head CT was ordered which did not reveal any acute intracranial hemorrhage or abnormality. Hussein mission the patient later complained of right top of the foot pain. Foot x-ray was ordered which do not reveal any acute abnormality. The patient was given [place] which relieved the pain. Foot was examined and was non- erythematous, minimal swelling, no ecchymosis. He will follow up with the Coumadin clinic which should be scheduled by [facility]. The patient denies headache, confusion, new focal deficits, weakness, chest pain, shortness of breath, nausea, vomiting, abdominal pain. The patient is alert and oriented with full capacity. He states that he is happy to leave the hospital. His told follow-up with primary care physician. The patient is to be transferred to [facility] and follow up with the Coumadin clinic. The patient was told to return to the hospital if he were to have any new weakness or a change in mental status, or if his foot should worsen. He stated clear understanding of the treatment plan. Hospital course: Mr. Harrison is a 50 year old male - Time Spent with Patient Total time spent providing and/or coordinating discharge services: - Constitutional Vitals: Temp Pulse Resp BP Pulse Ox 98.1 F 87 16 134/84 93 12/14/16 11:00 12/14/16 11:00 12/14/16 11:00 12/14/16 11:12/14/16 11:00 General appearance: Present: cooperative, A&O X 3, pleasant, no acute distress, answers questions appropriately Exam: Gen.: Vitals noted. No acute distress. AAOx3 HEENT: PERRL oropharynx clear, Normocephalic, atraumatic Neck: Supple. No adenopathy. Cardiac: RRR, no murmur, +S1/S2, no rub Pulmonary: CTA bilaterally, no wheezes, rales or rhonchi, equal chest expansion Abdomen: soft, nontender, Bowel sounds noted, no guarding Extremities: right fusing machine tender non-erythematous minimal edema, no ecchymosis. no BLE edema in calf, nontender calf, no cyanosis or clubbing Neuro: A&Ox3, moves all extremities, right-sided weakness in upper and lower extremity, intact sensation Psych: Appropriate mood and behavior <Stuart Eduardo - Last Filed: 12/14/16 15:25> Date of Encounter: 12/14/16 Procedures/tests Complete & Pending: Procedures Performed prior 72 hours Category Date Time Status CT head/brain wo con [CT] Stat Cat Scan 12/13/16 15:05 Completed Date of admission: 12/09/16 15:52 Primary care physician: Maggie Navarro, Consults: 12/11/16 23:24 Consult for Pharmacy Education [CONS] Routine Reason for Consult: Patient started on coumadin and would like more information regarding diet and interactions. Call Completed: No Hospital course: Mr. Harrison is a 50 year old male - Time Spent with Patient Total time spent providing and/or coordinating discharge services: - Constitutional Vitals: Temp Pulse Resp BP Pulse Ox 98.1 F 87 16 134/84 93 12/14/16 11:00 12/14/16 11:00 12/14/16 11:00 12/14/16 11:00 12/14/16 11:00 - Attending Attestation I examined this patient and my medical decision-making was reviewed with the Resident Physician. I agree with the documented findings, disposition and treatment plan as described except to the extent set forth below.
--- NOTE | 2016-12-14 12:33 | Physician Discharge Referral ---
<Luann Krishnamurthy - Last Filed: 12/14/16 12:32> [facility] Referral Info Transfer To: Summer Provider in Charge after Transfer: PCP Institutional Level of Care: Skilled - Diagnosis (1) Cerebrovascular accident Status: Acute (2) Right sided weakness Status: Acute (3) Essential hypertension Status: Chronic (4) Diabetes mellitus, type 2 Status: Chronic (5) DVT prophylaxis Status: Acute - Transfer Medications Prescriptions: HYDROcodone/Acet 5/325 mg [[place] 5-325 mg] 1 tab PO Q8H PRN #12 tab PRN Reason: Pain Warfarin [Coumadin] 7.5 mg PO DAILY@1800 #30 tab Home Medications: Albuterol Neb [Proventil Neb] 2.5 mg IH TID PRN 11/16/16 [History] Albuterol Sulfate [Albuterol Inhaler] 2 puff IH Q4H PRN 11/16/16 [History] Aspirin [Ecotrin] 325 mg PO DAILY 11/16/16 [History] BuPROPion XL (24 HR) [Wellbutrin Xl] 150 mg PO DAILY 11/16/16 [History] Cetirizine HCl [Zyrtec] 10 mg PO DAILY 11/16/16 [History] Clopidogrel [Plavix] 75 mg PO DAILY 11/16/16 [History] Cyclobenzaprine [Flexeril] 10 mg PO HS PRN 11/16/16 [History] Diltiazem HCl [Diltiazem 24Hr Cd] 240 mg PO DAILY 11/16/16 [History] Fluticasone Propionate Nasal [Flonase] 100 mcg NS DAILY 11/16/16 [History] Fluticasone/Salmeterol [Advair 100-50 Diskus] 2 puff IH DAILY 11/16/16 [History] Glimepiride [Amaryl] 4 mg PO BID 11/16/16 [History] Levothyroxine Sodium [Synthroid] 274 mcg PO QAM 11/16/16 [History] Multivitamin [Multi-Day Vitamins] 1 tab PO DAILY 11/16/16 [History] [place]-3/Dha/Epa/Fish Oil [Fish Oil 1,000 mg Softgel] 1,000 mg PO DAILY 11/16/16 [History] Simvastatin [Zocor] 20 mg PO HS 11/16/16 [History] Sitagliptin Phos/Metformin HCl [Janumet 50-1,000 mg Tablet] 1 tab PO BID [History] Tramadol HCl [Ultram] 50 mg PO Q4H PRN 11/16/16 [History] Ubidecarenone [Co Q-10] 100 mg PO DAILY 11/16/16 [History] Valsartan/Hydrochlorothiazide [Diovan Hct 160-12.5 mg Tab] 0.5 each PO BID 11/16 [History] Exenatide Microspheres [Bydureon] 2 mg SQ WE 12/08/16 [History] Bisacodyl [Dulcolax] 5 mg PO DAILY PRN tab 12/14/16 [Rx] HYDROcodone/Acet 5/325 mg [[place] 5-325 mg] 1 tab PO Q8H PRN #12 tab 12/14/16 [Rx ] Warfarin [Coumadin] 7.5 mg PO DAILY@1800 #30 tab 12/14/16 [Rx] Allergies/Adverse Reactions: Allergies sulfamethoxazole [From Bactrim] Allergy (Verified 12/08/16 02:06) Hives trimethoprim [From Bactrim] Allergy (Verified 12/08/16 02:06) Hives atenolol Adverse Reaction (Verified 12/08/16 02:06) Palpitations - Respiratory Orders None Smoking Cessation: Smoking cessation has been advised. For more information, call the [employer] at 3-762-LUOA-NOW. - Advance Directives Code Status: Full Code - Mobility Orders Ambulate - Rehabiliation Orders Rehab Potential: Good - Diet Orders Regular CERTIFICATION: I certify that the transfer of the above named patient to an Extended Care Facility is necessary for the continuing treatment of the diagnosis listed. The above information is true and accurate reflection of patient's current condition. Confidential - Redisclosure prohibited without a patient's written consent. <Stuart Eduardo - Last Filed: 12/14/16 15:26> - Respiratory Orders Smoking Cessation: Smoking cessation has been advised. For more information, call the [employer] [facility] at 6-349-KFIV-NOW. CERTIFICATION: I certify that the transfer of the above named patient to an Extended Care Facility is necessary for the continuing treatment of the diagnosis listed. The above information is true and accurate reflection of patient's current condition. Confidential - Redisclosure prohibited without a patient's written consent.
== END 2016-12-14 14:27 | disposition other institution (70) | DRG 65 ==
LOC: 3BNU 01:48 → EMEROO 01:48 → SUATTDRO 03:33 → 3BNU 04:03
PROVIDERS: ADMIT Internal Medicine; ATTEND Internal Medicine

== ENCOUNTER 2017-07-27 10:14 | Inpatient (IN) ==
--- NOTE | 2017-07-26 22:11 | Discharge Summary ---
<Tabatha Hester E - Last Filed: 07/26/17 22:09> Date of Encounter: 07/26/17 - Discharge Diagnosis (1) Rotator cuff tear arthropathy of right shoulder Priority: Primary Status: Chronic (2) Diabetes mellitus Priority: Secondary Status: Chronic Qualifiers: Diabetes mellitus type: type 2 Diabetes mellitus complication status: with unspecified complications Diabetes mellitus jail insulin use: without intermediate teacher use Qualified Code(s): E11.8 - Type 2 diabetes mellitus with unspecified complications (3) HTN (hypertension) Priority: Secondary Status: Chronic Qualifiers: Hypertension type: unspecified Qualified Code(s): I10 - Essential (primary ) hypertension (4) MANISH (obstructive sleep apnea) Priority: Secondary Status: Chronic (5) H/O: CVA (cerebrovascular accident) Priority: Secondary Status: Chronic (6) intermediate teacher current use of anticoagulant Priority: Secondary Status: Chronic (7) Asthma Priority: Secondary Status: Chronic Qualifiers: Asthma severity: unspecified severity Asthma persistence: unspecified Asthma complication type: unspecified Qualified Code(s): J45.909 - Unspecified asthma, uncomplicated (8) Gout Priority: Secondary Status: Chronic Qualifiers: Gout site: unspecified site Gout etiology: unspecified cause Chronicity: unspecified Qualified Code(s): M10.9 - Gout, unspecified (9) Hypothyroidism Priority: Secondary Status: Chronic Qualifiers: Hypothyroidism type: unspecified Qualified Code(s): E03.9 - Hypothyroidism , unspecified (10) Obesity Priority: Secondary Status: Chronic Qualifiers: Obesity type: unspecified obesity type Obesity classification: unspecified obesity classification Serious obesity comorbidity presence: unspecified whether serious comorbidity present Qualified Code(s): E66.9 - Obesity, unspecified (11) HLD (hyperlipidemia) Priority: Secondary Status: Chronic Qualifiers: Hyperlipidemia type: unspecified Qualified Code(s): E78.5 - Hyperlipidemia , unspecified - Hospital Course Hospital course: Mr. Harrison is a 51 year old male - Time Spent with Patient Total time spent providing and/or coordinating discharge services: - Discharge Medications Home Medications: Albuterol Neb [Proventil Neb] 2.5 mg IH TID PRN 11/16/16 [History] Albuterol Sulfate [Albuterol Inhaler] 2 puff IH Q4H PRN 11/16/16 [History] Aspirin [Ecotrin] 325 mg PO DAILY 11/16/16 [History] BuPROPion XL (24 HR) [Wellbutrin Xl] 150 mg PO DAILY 11/16/16 [History] Cetirizine HCl [Zyrtec] 10 mg PO DAILY 11/16/16 [History] Cyclobenzaprine [Flexeril] 10 mg PO HS PRN 11/16/16 [History] Diltiazem HCl [Diltiazem 24Hr Cd] 240 mg PO DAILY 11/16/16 [History] Fluticasone Propionate Nasal [Flonase] 100 mcg NS DAILY 11/16/16 [History] Fluticasone/Salmeterol [Advair 100-50 Diskus] 2 puff IH DAILY 11/16/16 [History] Glimepiride [Amaryl] 4 mg PO BID 11/16/16 [History] Levothyroxine Sodium [Synthroid] 137 mcg PO QAM 11/16/16 [History] Multivitamin [Multi-Day Vitamins] 1 tab PO DAILY 11/16/16 [History] [place]-3/Dha/Epa/Fish Oil [Fish Oil 1,000 mg Softgel] 1,000 mg PO DAILY 11/16/16 [History] Simvastatin [Zocor] 20 mg PO HS 11/16/16 [History] Tramadol HCl [Ultram] 50 mg PO Q4H PRN 11/16/16 [History] Ubidecarenone [Co Q-10] 100 mg PO DAILY 11/16/16 [History] Valsartan/Hydrochlorothiazide [Diovan Hct 160-12.5 mg Tab] 1 tab PO BID [History] Linagliptin/Metformin HCl [Jentadueto 2.5 mg-1000 mg Tab] 1 each PO BIDWM [History] OxyCODONE Immed Rel [Roxicodone 5 MG] 5 mg PO Q6HR PRN 7 Days #28 tablet [Rx] Allopurinol [Zyloprim 300 MG] 300 mg PO DAILY 07/27/17 [History] Enoxaparin [Lovenox] 150 mg SQ BID 07/27/17 [History] Montelukast [Singulair] 10 mg PO HS 07/27/17 [History] Warfarin [Coumadin] 3.75 mg PO FERGUSON 07/27/17 [History] Warfarin [Coumadin] 7.5 mg PO MOTUWETHFRSA 07/27/17 [History] Allergies/Adverse Reactions: 3 Allergy/AdvReac Type Severity Reaction Status Date / Time sulfamethoxazole Allergy Hives Verified 07/27/17 11:26 [From Bactrim] trimethoprim [From Bactrim] Allergy Hives Verified 07/27/17 11:26 atenolol AdvReac Palpitation Verified 07/27/17 11:26 s Primary care physician: Maggie Navarro, - Patient Status Disposition: Home, Self-Care Condition: Good - Discharge Instructions Follow Up With: Maggie Navarro MD [Primary Care Provider] - <Roger Gomez - Last Filed: 07/28/17 06:45> Orders not resulted at time of discharge: Pending orders 07/27/17 01:00 XR shoulder complete RT [XR] Routine Hemoglobin and Hematocrit [HEME] Routine Date of Encounter: 07/28/17 Time of Encounter: 06:45 - Discharge Diagnosis (1) Cerebrovascular accident Priority: Secondary Status: Chronic Qualifiers: CVA mechanism: thrombosis Precerebral and cerebral artery: unspecified cerebral artery Qualified Code(s): I63.30 - Cerebral infarction due to thrombosis of unspecified cerebral artery (2) TIA (transient ischemic attack) Priority: Secondary Status: Suspected Qualifiers: Transient cerebral ischemia type: other Qualified Code(s): G45.8 - Other transient cerebral ischemic attacks and related syndromes (3) Essential hypertension Status: Chronic (4) Diabetes mellitus, type 2 Status: Chronic Qualifiers: Diabetes mellitus complication detail: with other neurological complication Diabetes mellitus jail insulin use: without jail use (5) Morbid obesity with BMI of 40.0-44.9, adult Priority: Secondary Status: Chronic (6) DVT prophylaxis Priority: Secondary Status: Chronic (7) Right sided weakness Priority: Secondary Status: Chronic (8) Gout Priority: Secondary Status: Resolved Qualifiers: Gout site: foot Gout etiology: idiopathic Chronicity: chronic Laterality: unspecified laterality Presence of tophus: without tophus Qualified Code(s): M1A.0790 - Idiopathic chronic gout, unspecified ankle and foot, without tophus (tophi) (9) Hypothyroid Priority: Secondary Status: Chronic Qualifiers: Hypothyroidism type: acquired Qualified Code(s): E03.9 - Hypothyroidism, unspecified (10) Rotator cuff tear arthropathy of right shoulder Priority: Primary Status: Chronic (11) HTN (hypertension) Priority: Secondary Status: Chronic Qualifiers: Hypertension type: unspecified Qualified Code(s): I10 - Essential (primary ) hypertension (12) MANISH (obstructive sleep apnea) Priority: Secondary Status: Chronic (13) H/O: CVA (cerebrovascular accident) Priority: Secondary Status: Chronic (14) Hypothyroidism Priority: Secondary Status: Chronic Qualifiers: Hypothyroidism type: unspecified Qualified Code(s): E03.9 - Hypothyroidism , unspecified (15) HLD (hyperlipidemia) Priority: Secondary Status: Chronic Qualifiers: Hyperlipidemia type: unspecified Qualified Code(s): E78.5 - Hyperlipidemia , unspecified - Hospital Course Hospital course: Mr. Harrison is a 51 year old male Status post right total shoulder replacement The patient had an uneventful postoperative course. They received antibiotics and physical therapy and were discharged in stable condition. There will follow -up in the office in 2 weeks. - Time Spent with Patient Total time spent providing and/or coordinating discharge services: Primary care physician: Maggie Navarro, - Patient Status Functional capacity at discharge: independent ambulation Overall status at discharge: patient is progressing back to baseline
[2017-07-27] MEDS ORDERED: CeFAZolin Syr 3,000MG/30 ML 3,000 MG/30 ML SYRINGE IVPB ONE (10:34)
[2017-07-27] MEDS ORDERED: Albuterol 2.5 MG/3 ML NEBULIZER IH ONE (10:35)
[2017-07-27] MEDS ORDERED: Albuterol 2.5 MG/3 ML NEBULIZER ONE (10:37)
[2017-07-27] MEDS ORDERED: Ringers Solution, Lactated 1,000 ML IVC SCH ×2 (10:45→16:39)
--- NOTE | 2017-07-27 11:19 | History & Physical Report ---
Date of Encounter: 07/27/17 Time of Encounter: 11:19 24 Hour HP Update - Instructions Instructions: If the History and Physical is less than 30 days old and was completed prior to A.M. admission and or procedure and has NOT been updated on calendar day of procedure please complete this update prior to performing procedure. - Update Patient reports changes in Medical Condition: No Changes in examination, assessment, or condition: No Changes in Medication: No Preop tests/diagnostics Reviewed: Yes Surgery Remains Indicated: Yes Consent for Planned Operative Procedure(s) Verified: Yes - Pre-Operative Checklist Preoperative Checklist Indicated: No Prophylactic Antibiotic Ordered: Yes Is VTE Prophylaxis Indicated?: Yes
[2017-07-27] MEDS ORDERED: *HR* FentaNYL (PF) 100 MCG/2 ML VIAL ONE (11:34)
[2017-07-27] MEDS ORDERED: *HR* Propofol 200 MG/20 ML VIAL IVP ONE (11:35)
[2017-07-27] MEDS ORDERED: *HR* Midazolam HCl 2 MG/2 ML VIAL ONE (11:35)
--- NOTE | 2017-07-27 11:37 | Anesthesia Evaluation PreOp ---
Date of Encounter: 07/27/17 Time of Encounter: 11:34 - Past History Planned Operation: R total shoulder Cardiac History: HTN, Hyperlipidemia, Arrhythmia (tachycardia) Pulmonary History: MANISH Dx (uses CPAP at night) CONTRACTS INTERN History: CVA (4 strokes; residual RLE weakness; mild RUE weakness (not clinically detectable) - from CVA or shoulder injur) Other Medical History: Diabetes Type II (oral medications only), Thyroid Anesthesia History: No Prior Anesthetic Complications Alcohol Use: none Drug use: none Medications and Allergies Albuterol Neb [Proventil Neb] 2.5 mg IH TID PRN 11/16/16 [History] Albuterol Sulfate [Albuterol Inhaler] 2 puff IH Q4H PRN 11/16/16 [History] Aspirin [Ecotrin] 325 mg PO DAILY 11/16/16 [History] BuPROPion XL (24 HR) [Wellbutrin Xl] 150 mg PO DAILY 11/16/16 [History] Cetirizine HCl [Zyrtec] 10 mg PO DAILY 11/16/16 [History] Cyclobenzaprine [Flexeril] 10 mg PO HS PRN 11/16/16 [History] Diltiazem HCl [Diltiazem 24Hr Cd] 240 mg PO DAILY 11/16/16 [History] Fluticasone Propionate Nasal [Flonase] 100 mcg NS DAILY 11/16/16 [History] Fluticasone/Salmeterol [Advair 100-50 Diskus] 2 puff IH DAILY 11/16/16 [History] Glimepiride [Amaryl] 4 mg PO BID 11/16/16 [History] Levothyroxine Sodium [Synthroid] 274 mcg PO QAM 11/16/16 [History] Multivitamin [Multi-Day Vitamins] 1 tab PO DAILY 11/16/16 [History] [place]-3/Dha/Epa/Fish Oil [Fish Oil 1,000 mg Softgel] 1,000 mg PO DAILY 11/16/16 [History] Simvastatin [Zocor] 20 mg PO HS 11/16/16 [History] Tramadol HCl [Ultram] 50 mg PO Q4H PRN 11/16/16 [History] Ubidecarenone [Co Q-10] 100 mg PO DAILY 11/16/16 [History] Valsartan/Hydrochlorothiazide [Diovan Hct 160-12.5 mg Tab] 0.5 each PO BID 11/16 [History] Exenatide Microspheres [Bydureon] 2 mg SQ WE 12/08/16 [History] Bisacodyl [Dulcolax] 5 mg PO DAILY PRN tab 12/14/16 [Rx] Warfarin [Coumadin] 7.5 mg PO DAILY@1800 #30 tab 12/14/16 [Rx] Linagliptin/Metformin HCl [Jentadueto 2.5 mg-1000 mg Tab] 1 each PO BIDWM [History] HYDROcodone/Acet 5/325 mg [[place] 5-325 mg] 1 tab PO Q6H PRN #10 tab 01/04/17 [Rx ] Ondansetron ODT [Zofran ODT] 4 mg SL Q6HR PRN #10 tab.rapdis 01/04/17 [Rx] Tamsulosin HCl [Flomax] 0.4 mg PO DAILY #20 cap.er.24h 01/04/17 [Rx] OxyCODONE Immed Rel [Roxicodone 5 MG] 5 mg PO Q6HR PRN 7 Days #28 tablet [Rx] 3 Allergy/AdvReac Type Severity Reaction Status Date / Time sulfamethoxazole Allergy Hives Verified 07/27/17 11:26 [From Bactrim] trimethoprim [From Bactrim] Allergy Hives Verified 07/27/17 11:26 atenolol AdvReac Palpitation Verified 07/27/17 11:26 s - Meds/Allergy Pre-op Review Medications Reviewed: Yes Allergies Reviewed: Yes Beta Blockers on Current Med List: No Anesthesia Results - Labs Laboratory Tests 06/09/17 06/09/17 07/13/17 12:41 12:41 09:44 WBC 8.0 Hgb 13.5 Hct 41.8 Plt Count 244 PT INR APTT Sodium Potassium Chloride Carbon Dioxide BUN Creatinine Est GFR ( Amer) Est GFR (Non-Af Amer) BUN/Creatinine Ratio Est Mean Plasma Glucose 126 Hemoglobin A1c 6.0 H Calculated Osmolality 290 Calcium 10.0 07/13/17 07/13/17 09:44 09:44 WBC Hgb Hct Plt Count PT 25.2 H INR 2.3 APTT 38.6 H Sodium 139 Potassium 4.3 Chloride 104 Carbon Dioxide 27 BUN 11 Creatinine 0.91 Est GFR ( Amer) > 60 Est GFR (Non-Af Amer) > 60 BUN/Creatinine Ratio 12 Est Mean Plasma Glucose Hemoglobin A1c Calculated Osmolality Calcium Patient has been off warfarin for 5 days; he is being bridged with lovenox, last dose yesterday AM - Imaging EKG: report reviewed, image reviewed (SR) Additional studies: -2016 TTE Indications: Possible TIA Impressions: Technically sub-optimal due to body habitus. LVEF 60%. Normal LV chamber size and function. Mild concentric left ventricular hypertrophy. Mild left ventricular diastolic dysfunction. Normal right ventricular structure and function. Suboptimal image quality, but no obvoius significant PFO with agitated saline contrast. Unable to estimate RVSP due to lack of TR jet. No obvious significant valvular dysfunction. Anesthesia Exam Last Vital Signs Temp 97.4 F L 07/27/17 10:41 Pulse 101 07/27/17 10:41 Resp 18 07/27/17 10:41 BP 123/79 07/27/17 10:41 Pulse Ox 94 07/27/17 10:41 Weight: 147 kg NPO (# of Hours): > 8 hrs - HEENT Pupil (Motor): Pupils equal, EOMI Mallampati: II Teeth: Normal Oral Opening: Greater than 3 - CONTRACTS INTERN CONTRACTS INTERN Motor: Deficit RUE (not detectable clinically - patient is very strong), Deficit RLE - Cardiac Rhythm: Regular Murmur: None - Pulmonary Breath Sounds: bilateral Clear Respiratory Effort: Symmetrical Anesthesia Assess/Plan ASA Score: 3 Modified [place] Scale for Level of Consciousness: Cooperative, oriented, and tranquil Anesthetic Plan: General, Regional (Ok for supraclavicular nerve block - mild RUE weakness per patient, possibly due to shoulder injury and not residual from CVA; RLE weakness due to CVA) Monitoring Plan: Standard Monitors Recovery Plan: PACU
[2017-07-27] MEDS ORDERED: Lidocaine -MPF 2% 2 ML VIAL ONE (11:38)
[2017-07-27] MEDS ORDERED: MORPHINE SUL Oral CONC 10 MG/0.5 ML ORAL.SYG SL PRN (11:51)
[2017-07-27] MEDS ORDERED: *HR* Labetalol 20 MG/4 ML SYRINGE IVP PRN (11:51)
[2017-07-27] MEDS ORDERED: *HR* Promethazine 25 MG/ML VIAL IVP PRN (11:51)
[2017-07-27] MEDS ORDERED: ROPIVACAINE HCL/PF 0.5% 30 ML VIAL ONE (12:15)
--- NOTE | 2017-07-27 13:03 | Anesthesia Procedures ---
Date of Encounter: 07/27/17 Time of Encounter: 13:01 Procedures: Anesthesia - Nerve Block Procedure Date: 07/27/17 Time: 13:01 Allergies/Adv Reactions: see emr Pre-op Diagnosis: right shoulder RC arthropathy Surgical Procedure: tight TSA Checklist: Correct Patient Identifier, Correct procedure, History checked Correct side: Right Blood Thinner: No Monitor Applied: EKG, BP, Pulse Oximetry Supplemental Oxygen via Nasal Cannula (L/min): 2 Sedation: Versed (mg): 2 Sedation: Fentanyl (mcg): 100 Indication: Post Op Analgesia Pre-op Neuro Deficits: No Block Type: Interscalene Catheter placed: No Sterile Technique: Yes Ultrasound used: Yes Anatomy identified: Yes Visual spread of Local: Yes Neuro Stimulation: No Blood on Needle Aspiration: No Smooth Injection of Local: Yes Pain with Injection of Local: No Prep: Chlorhexadine Needle: 22 x 50 mm Stimuplex Local: Ropivacaine, Other Volume (cc): 30 Number of Attempts: 1 Complications: None/effective block Vitals: Vital Signs/O2 Sat/Glucose, Most Recent Temp Pulse Resp BP Pulse Ox 97.4 F L 97 19 131/73 98 07/27/17 10:41 07/27/17 12:54 07/27/17 12:54 07/27/17 12:54 07/27/17 12:54 Blood Glucose* 101
[2017-07-27] MEDS ORDERED: Acetaminophen IV 1,000 MG/100 ML INFUS..BTL ONE (13:16)
[2017-07-27] MEDS ORDERED: Dexamethasone 4 MG/ML VIAL ONE (13:33)
[2017-07-27] MEDS ORDERED: Ketorolac 30 MG/ML VIAL ONE (13:33)
[2017-07-27] MEDS ORDERED: Ondansetron 4 MG/2 ML VIAL ONE (13:33)
[2017-07-27] MEDS ORDERED: *HR* PHENYLEPHRINE 1,000 MCG/10 ML SYRINGE IVP ONE (13:46)
--- NOTE | 2017-07-27 14:11 | Orthopedic Operative Note ---
Date of procedure: 07/27/17 Pre-op diagnosis: Right shoulder cuff tear arthropathy Post-op diagnosis: same Procedure: Procedure: Total Shoulder Replacment Reverse, right Estimated blood loss: 100 cc Hardware: Metal and polyethylene replacement: Arthrex large glenoid baseplate, 2 4.5 screws. 1 6.5 screw, 42+4 glenosphere, 9 humeral stem, poly insert 3 and 6 metal Exam Under anesthesia: Full motion no instability Procedural Notes: Grade 4 arthritic changes humeral head glenoid socket tear supraspinatus tendon. Operative procedure: The patient was brought to the operating room and placed on the operating room table. After general anesthesia was administered the operative shoulder was examined. Findings were noted. The patient was placed in the modified beachchair position. All pressure points were padded appropriately. And the head was stabilized in the neutral position. The operative extremity was prepped and draped in the sterile surgical fashion. The patient received IV antibiotics prior to skin incision. A standard deltopectoral approach was made to the operative shoulder. Incision was made to the skin and subcutaneous tissue,hemo stasis was obtained with Bovie cautery. Using careful blunt dissection the cephalic vein was identified and mobilized medially. The deltopectoral interval was developed and the clavipectoral fascia was incised. The subscap was released off the lesser tuberosity and tagged with #2 FiberWire suture subscap was irreparable. The humerus was dislocated patient noted to have irreparable tear supraspinatus tendon, and the humeral cut was made along the anatomic neck. Patient noted to have grade 4 arthritic changes humeral head. Anterior and posterior Bankart retractors were placed to expose the glenoid. Patient noted to have grade 4 arthritic changes glenoid socket. The glenoid guide was seated and the centering hole was made. It was reamed with the appropriate reamer. The large baseplate, was seated and secured with (2) 4.5 screws and one 6.5 screw. The baseplate was irrigated and dried and the 42+4 Glenosphere was seated and secured with the Rosales taper. The Rosales taper was tested and found to be secure the humerus was redislocated and prepared with the diaphyseal reamers, followed by a broaching process up to the appropriate size 9 in the patient's anatomic version. The metaphyseal reamer was then utilized. Trial reduction found the shoulder to be relocatable. Trial components were removed The appropriate 9 stem was impacted in place in the patient's anatomic version. Trial reduction found the shoulder to be relocatable and stable with the appropriate 6 metal and 3 Tania Trial component was removed and the real implants was seated and secured the shoulder was reduced. The shoulder had excellent motion and excellent stability and no evidence of dislocation. The deep tissue was irrigated with pulse irrigation. The PA close the shoulder. The deltopectoral interval was closed with a running #1 PDS suture, subcutaneous tissue was irrigated and closed with 0 PDS suture, the skin was closed with Dermabond. The patient was placed in a sterile dressing, abduction brace and extubated. The patient was then transferred to the recovery room in stable condition. Anesthesia: LATOYA Surgeon: Roger Gomez Was there an assistant account manager present: Yes Tread Builder: Tabatha Hester Estimated blood loss (cc): 100 Condition: stable Disposition: PACU
--- NOTE | 2017-07-27 15:06 | Anesthesia Evaluation Post Op ---
Date of Encounter: 07/27/17 Time of Encounter: 15:04 - Vital Signs Vital Signs: vss - Lungs Lungs: Clear Ascult./Percussion - Airway Airway: Non-obstructed - Cardiovascular Baseline Rhythm - Mental Status Mental Status: Asleep with brisk response to light stimulation - Pain Pain Scale used: Brian (Faces) - Nausea Vomiting Nausea Vomiting: Not Present - Hydration Hydration: Tolerates oral liquids - Discharge PostOp Status: Transfer Patient to floor
[2017-07-27 15:27] LABS: Hematocrit 39.9 % (37.5-50.1); Hemoglobin 13.1 g/dL (12.9-16.9)
[2017-07-27] MEDS ORDERED: traMADol 50 MG TABLET PO ONE (15:30)
[2017-07-27] MEDS ORDERED: MOM Conc 10 ML UD.LIQ PO PRN (16:39)
[2017-07-27] MEDS ORDERED: Ondansetron 4 MG/2 ML VIAL IVP PRN (16:39)
[2017-07-27] MEDS ORDERED: Naloxone 0.4 MG/ML INJ IVP PRN (16:39)
[2017-07-27] MEDS ORDERED: *HR* Dextrose 50 % in Water (Syg) 50 ML SYRINGE IVP PRN (16:39)
[2017-07-27] MEDS ORDERED: Temazepam 15 MG CAPSULE PO PRN (16:39)
[2017-07-27] MEDS ORDERED: *HR* OxyCODONE Immed Rel 5 MG TABLET PO PRN ×2 (16:39)
[2017-07-27] MEDS ORDERED: D5% in Water 1,000 ML IVC PRN (16:39)
[2017-07-27] MEDS ORDERED: Dextrose Gel 15 GM/37.5 ML TUBE PO PRN ×2 (16:39)
[2017-07-27] MEDS ORDERED: Sennosides 8.6 MG TABLET PO PRN (16:39)
[2017-07-27] MEDS ORDERED: *HR* Enoxaparin 30 MG/0.3 ML SYRINGE SQ SCH (18:00)
[2017-07-27] MEDS: *HR* Enoxaparin 30 MG/0.3 ML SYRINGE SQ SCH (18:36)
[2017-07-27] MEDS: Insulin LISPRO 300 UNITS/3 ML VIAL SQ SCH (18:51)
[2017-07-27] MEDS ORDERED: Insulin LISPRO 300 UNITS/3 ML VIAL SQ SCH (21:00)
[2017-07-27] MEDS: CeFAZolin Syr 3,000MG/30 ML 3,000 MG/30 ML SYRINGE IVPB SCH (21:27)
[2017-07-28] MEDS: *HR* Enoxaparin 30 MG/0.3 ML SYRINGE SQ SCH (05:54)
[2017-07-28] MEDS: CeFAZolin Syr 3,000MG/30 ML 3,000 MG/30 ML SYRINGE IVPB SCH (05:55)
[2017-07-28 06:18] LABS: Hemoglobin 11.7 g/dL (12.9-16.9)
--- NOTE | 2017-07-28 06:46 | Orthopedics Progress Note ---
Date of Encounter: 07/28/17 Time of Encounter: 06:46 - Assessment and Plan (1) Cerebrovascular accident Current Visit: No Status: Chronic Qualifiers: CVA mechanism: thrombosis Precerebral and cerebral artery: unspecified cerebral artery Qualified Code(s): I63.30 - Cerebral infarction due to thrombosis of unspecified cerebral artery (2) TIA (transient ischemic attack) Current Visit: No Status: Suspected Qualifiers: Transient cerebral ischemia type: other Qualified Code(s): G45.8 - Other transient cerebral ischemic attacks and related syndromes (3) Essential hypertension Current Visit: No Status: Chronic (4) Diabetes mellitus, type 2 Current Visit: No Status: Chronic Qualifiers: Diabetes mellitus complication detail: with other neurological complication Diabetes mellitus terminal gauger insulin use: without retirement use Qualified Code(s): E11.49 - Type 2 diabetes mellitus with other diabetic neurological complication (5) Morbid obesity with BMI of 40.0-44.9, adult Current Visit: No Status: Chronic (6) DVT prophylaxis Current Visit: No Status: Chronic (7) Right sided weakness Current Visit: No Status: Chronic (8) Gout Current Visit: No Status: Resolved Qualifiers: Gout site: foot Gout etiology: idiopathic Chronicity: chronic Laterality: unspecified laterality Presence of tophus: without tophus Qualified Code(s): M1A.0790 - Idiopathic chronic gout, unspecified ankle and foot, without tophus (tophi) (9) Hypothyroid Current Visit: No Status: Chronic Qualifiers: Hypothyroidism type: acquired Qualified Code(s): E03.9 - Hypothyroidism, unspecified (10) Rotator cuff tear arthropathy of right shoulder Current Visit: No Status: Chronic (11) HTN (hypertension) Current Visit: No Status: Chronic Qualifiers: Hypertension type: unspecified Qualified Code(s): I10 - Essential (primary ) hypertension (12) MANISH (obstructive sleep apnea) Current Visit: No Status: Chronic (13) H/O: CVA (cerebrovascular accident) Current Visit: No Status: Chronic (14) Hypothyroidism Current Visit: No Status: Chronic Qualifiers: Hypothyroidism type: unspecified Qualified Code(s): E03.9 - Hypothyroidism , unspecified (15) HLD (hyperlipidemia) Current Visit: No Status: Chronic Qualifiers: Hyperlipidemia type: unspecified Qualified Code(s): E78.5 - Hyperlipidemia , unspecified Subjective Interval history: Patient was seen this morning doing well without complaints. Afebrile vital signs stable. Operative extremity: Neurovascularly intact Dressing clean dry and intact Calves nontender Assessment and plan: Continue with postoperative care Discharge today Objective Vital signs: Vital Signs Temp Pulse Resp BP Pulse Ox 07/28/17 05:06 98.3 F 89 18 96/65 96 07/28/17 01:04 97.9 F 89 18 95/60 96 07/27/17 18:15 97.6 F 94 18 110/68 95 07/27/17 16:45 97.8 F 95 16 134/80 91 07/27/17 16:17 98.3 F 94 14 129/76 90 07/27/17 15:54 89 18 105/64 95 07/27/17 15:44 90 18 112/65 93 07/27/17 15:34 97.7 F 86 18 116/61 95 07/27/17 15:24 87 20 111/71 95 07/27/17 15:14 90 20 121/71 95 07/27/17 15:04 97.6 F 90 18 113/73 95 07/27/17 14:54 92 20 97/59 95 07/27/17 14:44 106 20 124/64 95 07/27/17 14:34 97.6 F 97 22 110/74 93 07/27/17 12:54 97 19 131/73 98 07/27/17 10:41 97.4 F L 101 18 123/79 94 Intake and Output 07/27/17 07/27/17 07/28/17 15:59 23:59 07:59 Intake Total 30 / 30 600 / 600 Output Total 100 / 100 0 / 0 400 / 400 Balance -100 / -100 30 / 30 200 / 200 Intake: IV Fluids 30 / 30 Ancef Syringe 3,000 MG/30 ML 3, 30 / 30 000 mg In 30 ml @ 200 mls/hr IVPB Q8H [facility] Rx#:[id number] Oral 0 / 0 600 / 600 Output: Urine 0 / 0 400 / 400 Estimated Blood Loss 100 / 100 Other: Weight 146.51 kg Blood Glucose* 108 278 - Labs CBC & BMP: 07/28/17 05:40 Labs: Abnormal lab results Hgb 11.7 g/dL (12.9-16.9) L 07/28/17 05:40 Hct 36.0 % (37.5-50.1) L 07/28/17 05:40 POC Glucose 278 (58-89) H 07/27/17 18:41 - VTE Documentation of Mechanical Device: Venous foot pump, device Consult Discharge Plan - Plan Referrals: Maggie Navarro MD [Primary Care Provider] -
[2017-07-28 07:51] VITALS: BP 108/68
[2017-07-28] MEDS: Insulin LISPRO 300 UNITS/3 ML VIAL SQ SCH (08:04)
[2017-07-28] MEDS ORDERED: Warfarin perPT PO ONE (10:22)
[2017-07-28] MEDS ORDERED: *HR* Enoxaparin 120 MG/0.8 ML SYRINGE SQ ONE (10:45)
[2017-07-28] MEDS ORDERED: *HR* Warfarin 7.5 MG TABLET PO ONE (10:45)
[2017-07-28] MEDS ORDERED: *HR* Enoxaparin 150 MG/ML SYRINGE SQ ONE (21:00)
[2017-07-29] MEDS ORDERED: *HR* Enoxaparin 150 MG/ML SYRINGE SQ SCH (06:00)
== END 2017-07-28 11:54 | disposition home or self-care (01) | DRG 483 ==
LOC: SAMDAY 10:14 → 3NENU 16:42
PROVIDERS: ADMIT Orthopaedic Surgery; ATTEND Orthopaedic Surgery

== ENCOUNTER 2017-09-06 15:22 | Inpatient (IN) ==
--- NOTE | 2017-09-06 15:52 | Emergency Department Note ---
Disposition Clinical Impression: Neurological symptoms, Visual symptoms, Neurological deficit present Disposition: Admitted As Inpatient Condition: Serious Referrals: Maggie Navarro MD [Primary Care Provider] - Time of Disposition: 18:06 General Adult HPI - General Chief complaint: ED Neuro Symptoms/Deficit Stated complaint: neuro symptoms Time Seen by Provider: 09/06/17 15:29 Source: patient, family Limitations: no limitations Nursing Notes Reviewed: Yes Vital Signs Reviewed: Yes - History of Present Illness HPI Narrative: Patient is a 51-year-old male that presents the emergency department with neurological symptoms. He states that at approximately 12 PM last night he woke up and was not able to walk as well as when he went to the bathroom he noticed that he had some blurry and double vision. Patient states that he felt like it was getting worse. Patient states that today when he was looking in the mirror he was that his left eye would not track past midline. Due to the patient's INR being able to track past midline felt that he should come and be evaluated. Patient states that he does take Coumadin and his last INR was 3. 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 Pain Scale: 0 - Related Data Home Medications Medication Instructions Recorded Confirmed Albuterol Neb [Proventil Neb] 2.5 mg IH TID PRN 11/16/16 08/07/17 Albuterol Sulfate [Albuterol 2 puff IH Q4H PRN 11/16/16 08/07/17 Inhaler] BuPROPion XL (24 HR) [Wellbutrin 150 mg PO DAILY 11/16/16 08/07/17 Xl] Cetirizine HCl [Zyrtec] 10 mg PO DAILY 11/16/16 08/07/17 Cyclobenzaprine [Flexeril] 10 mg PO HS PRN 11/16/16 08/07/17 Diltiazem HCl [Diltiazem 24Hr Cd] 240 mg PO DAILY 11/16/16 08/07/17 Fluticasone Propionate Nasal 100 mcg NS DAILY 11/16/16 08/07/17 [Flonase] Fluticasone/Salmeterol [Advair 2 puff IH DAILY 11/16/16 08/07/17 100-50 Diskus] Glimepiride [Amaryl] 4 mg PO BID 11/16/16 08/07/17 Levothyroxine Sodium [Synthroid] 137 mcg PO QAM 11/16/16 08/07/17 Multivitamin [Multi-Day Vitamins] 1 tab PO DAILY 11/16/16 08/07/17 [place]-3/Dha/Epa/Fish Oil [Fish Oil 1,000 mg PO DAILY 11/16/16 08/07/17 1,000 mg Softgel] Simvastatin [Zocor] 20 mg PO HS 11/16/16 08/07/17 Tramadol HCl [Ultram] 50 mg PO Q4H PRN 11/16/16 08/07/17 Ubidecarenone [Co Q-10] 100 mg PO DAILY 11/16/16 08/07/17 Linagliptin/Metformin HCl 1 each PO BIDWM 12/15/16 08/07/17 [Jentadueto 2.5 mg-1000 mg Tab] Allopurinol [Zyloprim 300 MG] 300 mg PO DAILY 07/27/17 08/07/17 Montelukast [Singulair] 10 mg PO HS 07/27/17 08/07/17 Warfarin [Coumadin] 7.5 mg PO DAILY 07/27/17 08/07/17 Valsartan/Hydrochlorothiazide 1 tab PO DAILY 09/06/17 09/06/17 [Diovan Hct 320-25 mg Tablet] Warfarin [Coumadin] 11.25 mg PO SUTH 09/06/17 09/06/17 Allergies Allergy/AdvReac Type Severity Reaction Status Date / Time sulfamethoxazole Allergy Hives Verified 09/06/17 17:01 [From Bactrim] trimethoprim [From Bactrim] Allergy Hives Verified 09/06/17 17:01 atenolol AdvReac Palpitation Verified 09/06/17 17:01 s All systems ED: reviewed and negative except as stated. Eyes: Reports: vision change, other (Eye wont pass track past midline) Cardiovascular: Denies: chest pain Respiratory: Denies: dyspnea Neurological: Reports: headache, other (Balance issue). Denies: weakness, numbness, paresthesias Past Medical History - Past Medical History Medical history: Reports: asthma, CVA, diabetes, hyperlipidemia, hypertension, thyroid disease, TIA Surgical history: Reports: other Psychiatric history: Reports: depression - Social History Smoking Status: Never smoker Smokeless Tobacco Status: No Alcohol use: Reports: none Drug use: Reports: none Physical Exam - General Limitations: no limitations General appearance: alert, in no apparent distress - Head Head exam: atraumatic, normocephalic - Eye Eye exam: Present: PERRL, other (Patients left eye is not able to track past midline. The patients right eye has horizontal nystagmus.) - Neck Neck exam: Present: normal inspection, full ROM, trachea midline - Respiratory Respiratory exam: Present: normal lung sounds bilaterally. Absent: respiratory distress, wheezes - Cardiovascular Cardiovascular exam: Present: normal rhythm, tachycardia, normal heart sounds, + S1, +S2 - Abdominal Exam Abdominal exam: Present: soft, Non-Tender, normal bowel sounds - Extremities Exam Extremities exam: Present: normal inspection, full ROM, tenderness - Neurological Exam Neurological exam: Present: alert, oriented X3 - Expanded Neurological Exam Speech: Present: fluid speech Cranial nerves: EOM function (II, III, IV, ): Abnormal Left (right eye nystagmus), facial sensation (V): Normal, facial palsy (VII): Normal, gag reflex (IX): Normal, spinal accessory function (XI): Normal, tongue deviation ( XII): Normal Cerebellar function: finger to nose: Normal, heel to mitchell: Normal Motor strength - LUE: 5/5 Motor strength - RUE: 5/5 Motor strength - LLE: 5/5 Motor strength - RLE: 5/5 Upper motor neuron exam: pronator drift: Absent bilaterally Sensory exam upper extremity: light touch: Normal Sensory exam lower extremity: light touch: Normal Coma Scale Eye Opening: Spontaneous Coma Scale Motor Response: Obeys Commands Coma Scale Verbal Response: Oriented Coma Scale Total: 15 - Psychiatric Psychiatric exam: Present: normal affect, normal mood - Skin Skin exam: Present: warm, dry, intact Course - Reevaluation(s) Reevaluation #1: I spoke with the on-call neurologist Dr. Chavez and presented the case to him including the patient's inability to track past midline with his left eye and patient stating that he has been having balance issues. I also relayed the CAT scan findings to Dr. Chavez. He recommended that we perform a CTA of the patient's head and then admit to the hospital for further evaluation and management. He felt that the MRIs to be done once he was admitted to the hospital. The patient will be admitted to medicine and a neurology consult will be placed. Time: 16:35 Reevaluation #2: I called and spoke with the admitting hospitalist and he has accepted the patient to their service. The patient will be admitted to the hospital at this time for further evaluation and management. Time: 18:04 Vital Signs Temperature 97.5 F L 09/06/17 15:24 Pulse Rate 99 09/06/17 15:24 Respiratory Rate 18 09/06/17 15:24 Blood Pressure 144/97 09/06/17 15:24 O2 Sat by Pulse Oximetry 99 09/06/17 15:24 Temperature 97.5 F L 09/06/17 15:24 Pulse Rate 94 09/06/17 17:18 Respiratory Rate 18 09/06/17 17:18 Blood Pressure 135/90 09/06/17 17:18 O2 Sat by Pulse Oximetry 98 09/06/17 17:18 Oxygen Delivery Oxygen Delivery Room Air Medical Decision Making - MDM Narrative Medical decision making narrative: Due to the patient presenting with neurologic symptoms we will obtain a cbc, bmp , troponin, pt/inr, ekg and Ct of the head. The CT of the head was negative for acute bleed and the CTA of the head did not show any arterial occlusion per radiology read. The patient's troponin was negative. The INR was 3.1. The patient is currently taking Coumadin due to factor V. The remainder of his laboratory testing is unremarkable. I called and spoke with the admitting hospitalist and he has accepted the patient to their service. Patient will be admitted to the hospital this time for further evaluation and management likely including MRIs of the brain. A consult to neurology has been placed. - Lab Data Lab results reviewed: Yes I reviewed the patient's lab results. Result diagrams: 09/06/17 16:16 09/06/17 16:16 Lab Results 09/06/17 09/06/17 09/06/17 Range/Units 15:27 16:16 16:16 WBC 6.9 (4.3-11.1) K/mcL RBC 4.52 (4.19-5.50) M/mcL Hgb 13.2 (12.9-16.9) g/dL Hct 40.2 (37.5-50.1) % MCV 88.9 (83.0-100.0) fL MCH 29.2 (28.0-33.3) pg MCHC 32.8 (31.6-35.5) g/dL RDW 13.6 (11.5-14.5) % Plt Count 266 (140-400) K/mcL MPV 9.2 L (9.4-12.4) fL Immature Gran % 0.6 (0-4) % Seg Neutrophils % 71.7 % Lymphocytes % 19.5 % Monocytes % 6.5 % Eosinophils % 1.3 % Basophils % 0.4 % Neutrophils # 5.0 (1.6-8.9) K/mcL Lymphocytes # 1.4 (0.6-4.6) K/mcL Monocytes # 0.5 (0.0-1.3) K/mcL Eosinophils # 0.1 (0.0-0.6) K/mcL Basophils # 0.0 (0.0-0.2) K/mcL PT 34.4 H (9.4-12.1) Seconds INR 3.1 Sodium (136-145) mEq/L Potassium (3.5-5.1) mEq/L Chloride (98-107) mEq/L Carbon Dioxide (23-29) mEq/L BUN (6-20) mg/dL Creatinine (0.70-1.30) mg/dL Est GFR ( Amer) (> 60) Est GFR (Non-Af Amer) (> 60) BUN/Creatinine Ratio (6-26) Glucose (70-105) mg/dL POC Glucose 86 (70-99) mg/dL Calculated Osmolality (280-300) Calcium (8.6-10.3) mg/dL Troponin I (< 0.04) ng/mL 09/06/17 Range/Units 16:16 WBC (4.3-11.1) K/mcL RBC (4.19-5.50) M/mcL Hgb (12.9-16.9) g/dL Hct (37.5-50.1) % MCV (83.0-100.0) fL MCH (28.0-33.3) pg MCHC (31.6-35.5) g/dL RDW (11.5-14.5) % Plt Count (140-400) K/mcL MPV (9.4-12.4) fL Immature Gran % (0-4) % Seg Neutrophils % % Lymphocytes % % Monocytes % % Eosinophils % % Basophils % % Neutrophils # (1.6-8.9) K/mcL Lymphocytes # (0.6-4.6) K/mcL Monocytes # (0.0-1.3) K/mcL Eosinophils # (0.0-0.6) K/mcL Basophils # (0.0-0.2) K/mcL PT (9.4-12.1) Seconds INR Sodium 141 (136-145) mEq/L Potassium 3.8 (3.5-5.1) mEq/L Chloride 107 (98-107) mEq/L Carbon Dioxide 27 (23-29) mEq/L BUN 12 (6-20) mg/dL Creatinine 0.84 (0.70-1.30) mg/dL Est GFR ( Amer) > 60 (> 60) Est GFR (Non-Af Amer) > 60 (> 60) BUN/Creatinine Ratio 14 (6-26) Glucose 89 (70-105) mg/dL POC Glucose (70-99) mg/dL Calculated Osmolality 291 (280-300) Calcium 9.8 (8.6-10.3) mg/dL Troponin I < 0.03 (< 0.04) ng/mL - Radiology Data Radiology results reviewed: Yes I reviewed the patient's radiology results. Head CT 09/06/17 15:43 IMPRESSION: 1. No evidence of acute intracranial hemorrhage. 2. Nonspecific white matter disease, likely related to chronic small vessel ischemia. 3. Evidence of remote left thalamus lacunar infarct. D/ / 09/06/2017 16:23:50 Talat Pacheco MD / radha Interpreting Provider: Talat Pacheco MD Head CTA 09/06/17 16:36 IMPRESSION: No focal arterial narrowing. No definite aneurysm. If clinical symptoms continue, consider MRI of the head with and without contrast D/ / Juanito Lira / Juanito Lira Interpreting Provider: Juanito Lira - EKG Data EKG #1 EKG attestation: Yes I reviewed and interpreted this EKG. EKG results narrative: EKG shows a sinus rhythm at a rate of 94 bpm, MS interval of 151, QRS duration of 101, QTc of 407. No STEMI is noted on EKG. This is compared to previous EKG on 12/08/16 no acute changes noted between these 2 EKGs.
[2017-09-06 16:29] LABS: Basophils % 0.4 %; Eosinophils # 0.1 K/mcL (0.0-0.6); Eosinophils % 1.3 %; Hematocrit 40.2 % (37.5-50.1); Hemoglobin 13.2 g/dL (12.9-16.9); Immature Granulocytes % 0.6 % (0-4); Lymphocytes # 1.4 K/mcL (0.6-4.6); Lymphocytes % 19.5 %; Mean Corpuscular HGB Conc 32.8 g/dL (31.6-35.5); Mean Corpuscular Hemoglobin 29.2 pg (28.0-33.3); Mean Corpuscular Volume 88.9 fL (83.0-100.0); Mean Platelet Volume 9.2 fL (9.4-12.4); Monocytes # 0.5 K/mcL (0.0-1.3); Monocytes % 6.5 %; Platelet Count 266 K/mcL (140-400); Red Blood Count 4.52 M/mcL (4.19-5.50); Red Cell Distribution Width 13.6 % (11.5-14.5); Segmented Neutrophils % 71.7 %
[2017-09-06 16:33] LABS: INR 3.1; Prothrombin Time 34.4 Seconds (9.4-12.1)
[2017-09-06] MEDS ORDERED: Isovue-370 500 ML INFUS..BTL IV ONE ×2 (16:36→20:22)
[2017-09-06 16:54] LABS: BUN/Creatinine Ratio 14 (6-26); Blood Urea Nitrogen 12 mg/dL (6-20); Calcium 9.8 mg/dL (8.6-10.3); Carbon Dioxide 27 mEq/L (23-29); Chloride 107 mEq/L (98-107); Glucose 89 mg/dL (70-105); Osmolality,Calculated 291 (280-300); Potassium 3.8 mEq/L (3.5-5.1); Sodium 141 mEq/L (136-145); Troponin I < 0.03 ng/mL (< 0.04); eGFR For African Americans > 60 (> 60); eGFR For Non-African Americans > 60 (> 60)
--- NOTE | 2017-09-06 17:05 | Emergency Department Note ---
START Narrative - START START: I examined this patient and my medical decision-making was reviewed with the Resident Physician. I agree with the documented findings, disposition and treatment plan as described except to the extent set forth below. This is a 51-year-old male who presented to the emergency room for left eye problems. States he noticed around midnight last night after waking up from a nap He denies any face arm or leg involvement. On exam, he does have problems moving his left eye medially. It appears as he has a left isolated medial rectus palsy. Spoke with neurology who prefers a CTA of the head now. His CT did not show any acute findings. Patient will need to be admitted for further workup. Again he has no other focal deficits at this time. No critical care time
[2017-09-06] MEDS ORDERED: Naloxone 0.4 MG/ML INJ IVP PRN (20:10)
[2017-09-06] MEDS ORDERED: Acetaminophen 325 MG TABLET PO PRN (20:10)
[2017-09-06] MEDS ORDERED: *HR* Dextrose 50 % in Water (Syg) 50 ML SYRINGE IVP PRN (20:25)
[2017-09-06] MEDS ORDERED: Dextrose Gel 15 GM/37.5 ML TUBE PO PRN ×2 (20:25)
[2017-09-06] MEDS ORDERED: Albuterol 2.5 MG/3 ML NEBULIZER IH PRN (20:25)
[2017-09-06] MEDS ORDERED: D5% in Water 1,000 ML IVC PRN (20:25)
--- NOTE | 2017-09-06 20:41 | Internal Med History&Physical ---
Date of Encounter: 09/06/17 Time of Encounter: 19:45 Internal Medicine - H&P: HPI Chief complaint: diplopia Admitted From: Emergency Dept Plans for Post Hospital Care: Home History of present illness: Mr. Harrison is a 51 year old male who presents to the ER today with complaints of diplopia and blurred vision. Symptoms started shortly after midnight last night and have persisted throughout the day. He woke up in middle of the night to go to the bathroom when he noticed his symptoms. Because the symptoms did not resolve, he came to the ER for evaluation. Workup in the ER was negative except for finding of diplopia and inability of his left eye to track medially. As such, patient was admitted to hospitalist service with a neurology consult for possible stroke. Upon my assessment of the patient, he is lying in bed comfortably with no complaints presently. However, if he opens his eyes and tries to look around, he complains of double and blurred vision. He denies any other focal numbness, weakness, or paralysis. He does have some residual weakness from his old stroke but that is not new. He denies any ataxia or abnormal gait except when tries to focus with his vision. Of concern is the fact the patient has a hypercoagulable state. He is therapeutic on his Coumadin with an INR 3.1. Nonetheless, the symptoms present in the face of being therapeutic on his Coumadin. Given his risk factors and presenting symptoms, we will proceed with stroke workup and consult neurology as well as hematology for further guidance and assistance. Of note, patient had right shoulder surgery 1 month ago. His surgery was complicated by hematoma of the right upper arm with impending compartment syndrome. He had to have surgical evacuation of the hematoma roughly 10 days after his initial shoulder surgery. Past Med Surg Social Fam HX - Past Medical History Attestation: Yes The following information was validated with the patient. Source: patient, old records reviewed Medical history: asthma, CVA, diabetes, hyperlipidemia, hypertension, thyroid disease, TIA, other (prothrombin gene mutation) Psychiatric history: depression - Past Surgical History Surgical History: orthopedic, other (shoulder surgery), other - Social History Smoking Status: Never smoker Smokeless Tobacco Status: No Alcohol use: rarely Drug use: none Current living situation: Home, With Family Activity Level: Independent ambulation Recent Out of Country Travel Within the Last 8 Weeks: No - Family History Mother Living Status: Hx Family Cardiac Disorders: Yes Hx Family Respiratory Disorders: No Hx Family Cancer: Yes Hx Family GI Disorders: No Hx Family Endocrine Disorder: Yes Hx Family Neuromuscular Disorders: Yes Hx Family Neurologic Disorders: Yes Hx Family HEENT Disorders: No Hx Family Autoimmune Disorders: No Brother Hx Family Endocrine Disorder: Yes (carrier of prothombin gene mutation) Internal Medicine - H&P: Meds Albuterol Neb [Proventil Neb] 2.5 mg IH TID PRN 11/16/16 [History] Albuterol Sulfate [Albuterol Inhaler] 2 puff IH Q4H PRN 11/16/16 [History] BuPROPion XL (24 HR) [Wellbutrin Xl] 150 mg PO DAILY 11/16/16 [History] Cetirizine HCl [Zyrtec] 10 mg PO DAILY 11/16/16 [History] Cyclobenzaprine [Flexeril] 10 mg PO HS PRN 11/16/16 [History] Diltiazem HCl [Diltiazem 24Hr Cd] 240 mg PO DAILY 11/16/16 [History] Fluticasone Propionate Nasal [Flonase] 100 mcg NS DAILY 11/16/16 [History] Fluticasone/Salmeterol [Advair 100-50 Diskus] 2 puff IH DAILY 11/16/16 [History] Glimepiride [Amaryl] 4 mg PO BID 11/16/16 [History] Levothyroxine Sodium [Synthroid] 137 mcg PO QAM 11/16/16 [History] Multivitamin [Multi-Day Vitamins] 1 tab PO DAILY 11/16/16 [History] [place]-3/Dha/Epa/Fish Oil [Fish Oil 1,000 mg Softgel] 1,000 mg PO DAILY 11/16/16 [History] Simvastatin [Zocor] 20 mg PO HS 11/16/16 [History] Tramadol HCl [Ultram] 100 mg PO Q4H PRN 11/16/16 [History] Ubidecarenone [Co Q-10] 100 mg PO DAILY 11/16/16 [History] Linagliptin/Metformin HCl [Jentadueto 2.5 mg-1000 mg Tab] 1 each PO BIDWM [History] Allopurinol [Zyloprim 300 MG] 300 mg PO DAILY 07/27/17 [History] Montelukast [Singulair] 10 mg PO HS 07/27/17 [History] Warfarin [Coumadin] 7.5 mg PO MOTUWEFRSA 07/27/17 [History] Valsartan/Hydrochlorothiazide [Diovan Hct 320-25 mg Tablet] 1 tab PO DAILY 09/06 [History] Warfarin [Coumadin] 11.25 mg PO SUTH 09/06/17 [History] 3 Allergy/AdvReac Type Severity Reaction Status Date / Time sulfamethoxazole Allergy Hives Verified 09/06/17 17:01 [From Bactrim] trimethoprim [From Bactrim] Allergy Hives Verified 09/06/17 17:01 atenolol AdvReac Palpitation Verified 09/06/17 17:01 s - Constitutional Constitutional: no chills, no fever(s), no lethargy - EENT Eyes: blurry vision, diplopia, no loss of vision Ears: no ear pain, no tinnitus Nose, mouth and throat: no nasal congestion, no nasal discharge, no sinus pressure, no sore throat - Cardiovascular Cardiovascular ROS IM: no chest pain, no dyspnea, no dyspnea on exertion, no orthopnea, no palpitations, no paroxysmal nocturnal dyspnea, no syncope - Respiratory Respiratory: wheezing, no cough, no hemoptysis, no dyspnea on exertion, no chest congestion, no excessive phlegm production, no change in phlegm color - Gastrointestinal Gastrointestinal: no abdominal pain, no diarrhea, no hematemesis, no hematochezia, no melena, no vomiting - Genitourinary Genitourinary ROS male: no dysuria, no flank pain, no hematuria - Musculoskeletal Musculoskeletal ROS IM: arthralgias (right shoulder post-op), no back pain, no numbness - Integumentary Integumentary IM: no rash, no jaundice - Neurological Neurological ROS: other visual disturbances (diplopia), no abnormal speech, no convulsions, no focal weakness, no frequent falls, no headache(s), no numbness, no paresthesias, no weakness - Psychiatric Psychiatric: no anxiety, no depression - Endocrine Endocrine IM: no polydipsia, no polyuria - Hematologic/Lymphatic Hematologic/Lymphatic: easy bruising, no lymphadenopathy - Allergic/Immunologic Allergic/Immunologic: wheezing, no GI upset with certain foods - Constitutional Vitals: Temp Pulse Resp BP Pulse Ox 98.3 F 92 17 124/82 94 09/06/17 19:15 09/06/17 19:15 09/06/17 19:15 09/06/17 19:15 09/06/17 20:20 General appearance: Present: cooperative, A&O X 3, pleasant, no acute distress, answers questions appropriately - Head Head exam: Present: atraumatic, normal inspection - Eye Eye exam: Present: EOMI, nystagmus (mild ), PERRL. Absent: scleral icterus Pupils: Absent: normal accommodation (left eye does not track medially) - ENT ENT exam: Present: mucous membranes dry, normal exam, normal oropharynx - Neck Neck exam general surgery: Present: full ROM, supple. Absent: lymphadenopathy, tenderness, nuchal rigidity, thyromegaly - Expanded Neck Exam Neck exam: Absent: carotid bruit - Respiratory Respiratory exam: Present: CTAB. Absent: chest wall tenderness, rales, respiratory distress, rhonchi, wheezes - Cardiovascular Cardiovascular exam: Present: distant heart sounds, RRR, +S1, +S2. Absent: diastolic murmur, JVD, systolic murmur - GI/Abdominal GI/Abdominal exam: Present: normal bowel sounds, soft. Absent: guarding, hepatomegaly, mass, rebound, splenomegaly, tenderness - Extremities Exam Extremities exam: Present: full ROM, normal capillary refill, warm, radial pulses palpable and symmetrical. Absent: calf tenderness, joint swelling, pedal edema, tenderness Additional comments: right shoulder surgery site with healing scar-- no sign of redness, warmth, or edema - Neurological Exam Neurological exam: Present: alert, oriented X3, strengths equal and symetr throughout. Absent: CN II-XII intact (left eye does not track medially/past midline), facial droop, speech deficit - Psychiatric Psychiatric exam: Present: normal affect, normal mood - Skin Skin exam: Present: dry, warm. Absent: rash Internal Med - H&P Results - Labs CBC & Chem 7: 09/06/17 16:16 09/06/17 16:16 - EKG Data -: EKG Interpreted by Myself - EKG Data Prior EKG available for review: no EKG comments: 09/06/17 20:50 Sinus rhythm w sinus arrhythmia; no acute ST-T changes - Diagnostic Studies CT scan - head Status: image reviewed by me (negative acute findings; old left thalamic infarct ) - VTE Reasons for not Prescribing Prophylaxis: Not indicated-Anticoagulated or INR therapeutic - Assessment and plan (1) Diplopia Current Visit: Yes Status: Acute Assessment and plan: 1. History and work-up concerning for stroke. 2. Will order MRI, ECHO, CTA neck. 3. Neurology already consulted from ER. 4. Patient therapeutic on Coumadin. Will resume dosing tomorrow given INR is 3.1 now and above goal of 2-3. 5. Monitor daily PT/INR. 6. Consult HEM/ONC for further guidance regarding anti-coagulation and further stroke prevention. (2) Diabetes mellitus, type 2 Current Visit: Yes Status: Chronic Assessment and plan: 1. Hold oral home meds. 2. Will place on SSI and monitor glucose closely. Qualifiers: Diabetes mellitus shelter insulin use: without shelter use Diabetes mellitus complication detail: with other neurological complication Qualified Code(s): E11.49 - Type 2 diabetes mellitus with other diabetic neurological complication (3) HTN (hypertension) Current Visit: Yes Status: Chronic Assessment and plan: 1. Hold oral home meds and monitor BP closely, allowing for autoregulation. 2. Will allow permissive hypertension and treat as necessary if SBP > 180. 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 Continue Coumadin per home dosing and monitor INR daily. 2. Consult HEM/ONC for anti-coagulation guidance. (5) DVT prophylaxis Current Visit: Yes Status: Acute Assessment and plan: 1. Coumadin as above.
[2017-09-06 21:55] LABS: Estimated Average Glucose 94 mg/dl; Hemoglobin A1C 4.9 %
[2017-09-06] MEDS: 0.9 % Sodium Chloride 1,000 ML IVC SCH (22:07)
[2017-09-07] MEDS: traMADol 50 MG TABLET PO PRN ×4 (01:03→23:51)
[2017-09-07 04:53] LABS: Basophils # 0.1 K/mcL (0.0-0.2); Basophils % 0.8 %; Eosinophils # 0.2 K/mcL (0.0-0.6); Eosinophils % 2.9 %; Hematocrit 37.1 % (37.5-50.1); Immature Granulocytes % 0.5 % (0-4); Lymphocytes # 1.8 K/mcL (0.6-4.6); Lymphocytes % 28.5 %; Mean Corpuscular HGB Conc 32.3 g/dL (31.6-35.5); Mean Corpuscular Hemoglobin 28.7 pg (28.0-33.3); Mean Corpuscular Volume 88.8 fL (83.0-100.0); Mean Platelet Volume 9.3 fL (9.4-12.4); Monocytes # 0.5 K/mcL (0.0-1.3); Monocytes % 8.3 %; Neutrophils # 3.7 K/mcL (1.6-8.9); Platelet Count 242 K/mcL (140-400); Red Blood Count 4.18 M/mcL (4.19-5.50); Red Cell Distribution Width 13.6 % (11.5-14.5)
[2017-09-07 04:58] LABS: INR 2.5; Prothrombin Time 27.5 Seconds (9.4-12.1)
[2017-09-07 05:00] LABS: Activated Partial Thrombo Time 34.8 Seconds (26.0-36.0)
[2017-09-07 05:11] LABS: Alanine Aminotransferase 11 Units/L (7-52); Albumin 3.8 g/dL (3.5-5.7); Albumin/Globulin Ratio 1.7 (1.1-2.2); Alkaline Phosphatase 93 Units/L (34-104); Aspartate Amino Transferase 19 Units/L (13-39); BUN/Creatinine Ratio 14 (6-26); Bilirubin,Total 0.6 mg/dL (0.3-1.0); Blood Urea Nitrogen 12 mg/dL (6-20); Calcium 9.2 mg/dL (8.6-10.3); Carbon Dioxide 30 mEq/L (23-29); Chloride 106 mEq/L (98-107); Chol/HDL Ratio 3.4 (0-4.9); Cholesterol 125 mg/dL (< 200); Globulin 2.2 g/dL (2.4-3.5); Glucose 99 mg/dL (70-105); HDL Cholesterol 37 mg/dL (40-59); LDL Cholesterol,Calculated 46 mg/dL (0-99); Magnesium 1.7 mg/dL (1.6-2.6); Osmolality,Calculated 290 (280-300); Potassium 3.7 mEq/L (3.5-5.1); Sodium 140 mEq/L (136-145); Triglycerides 209 mg/dL (< 150); eGFR For African Americans > 60 (> 60); eGFR For Non-African Americans > 60 (> 60)
[2017-09-07] MEDS: (Omega-3/Dha/Epa/Fish Oil [Fish Oil 1,000 Mg Softgel]) PO SCH (08:10)
[2017-09-07] MEDS: Loratadine 10 MG TABLET PO SCH (08:10)
[2017-09-07] MEDS: Multivit/Ca/Min/Fe/FA 1 TAB TABLET PO SCH (08:10)
[2017-09-07] MEDS: (Ubidecarenone [Co Q-10] 100 MG) PO SCH (08:10)
[2017-09-07] MEDS: Fluticasone Propionate Nasal 50 MCG/SPRAY BOTTLE NS SCH (08:11)
[2017-09-07] MEDS: Insulin LISPRO 300 UNITS/3 ML VIAL SQ SCH ×3 (08:18→17:58)
--- NOTE | 2017-09-07 10:00 | Neurology - Consult Note ---
<Omar Holland - Last Filed: 09/07/17 13:31> Date of Encounter: 09/07/17 Time of Encounter: 13:32 Assessment and Plan (1) Diplopia Current Visit: Yes Status: Acute presented with acute onset diplopia hx of CVA patient has multiple risk factors for CVA: DM II, HLD, HTN, hx of prothrombin gene mutation neuro exam non-focal and non-lateralizing except: left cranial nerve three palsy CT head, CTA head and neck negative for acute infarction. Awaiting MRI. Echo LVEF 50% mild left ventricular diastolic dysfunction, RV dilation, ascending aorta dialation, absent PFO, absent wall segment abnormalaties start patient on aspirin continue statin PT/OT consult (2) Cranial nerve III palsy Current Visit: Yes Status: Acute as mentioned above. Qualifiers: Laterality: left Qualified Code(s): H49.02 - Third [oculomotor] nerve palsy , left eye (3) Essential hypertension Current Visit: Yes Status: Chronic controlled continue home medication. 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 oncology consulted. History of Present Illness Chief complaint: double vision HPI: Mr. Harrison is a 51 year old male with history of CVA, prothrombin gene mutation, hyperlipidemia hypertension, diabetes mellitus presented with chief complaint of double vision. This started Thursday midnight when patient was going to the bathroom. Patient reported he went to sleep around 10 PM without any vision abnormalities. He also reports difficulty in gait due to imbalance. Patient denied headache, dizziness, loss of vision, ringing in his ears, difficulty swallowing, facial drooping, slurred speech, numbness, tingling. Patient has history of CVA last year with a left thalamus lacunar infarct with residual right upper extremity weakness as per patient. Patient is on Coumadin for prothrombin gene mutation and INR was 3.1. Patient's CT head showed remote left full laminectomy lacunar infarct. CTA head and neck was negative. This morning patient continues to have double vision which worsens when he looks to the left. Past Med Surg Social Fam HX - Past Medical History Medical history: asthma, CVA, diabetes, hyperlipidemia, hypertension, thyroid disease, TIA, other (prothrombin gene mutation) Psychiatric history: depression - Past Surgical History Surgical History: orthopedic, other (shoulder surgery), other - Social History Smoking Status: Never smoker Smokeless Tobacco Status: No Alcohol use: rarely Drug use: none - Family History Mother Living Status: Hx Family Cardiac Disorders: Yes Hx Family Respiratory Disorders: No Hx Family Cancer: Yes Hx Family GI Disorders: No Hx Family Endocrine Disorder: Yes Hx Family Neuromuscular Disorders: Yes Hx Family Neurologic Disorders: Yes Hx Family HEENT Disorders: No Hx Family Autoimmune Disorders: No Brother Hx Family Endocrine Disorder: Yes (carrier of prothombin gene mutation) Medications and Allergies Albuterol Neb [Proventil Neb] 2.5 mg IH TID PRN 11/16/16 [History] Albuterol Sulfate [Albuterol Inhaler] 2 puff IH Q4H PRN 11/16/16 [History] BuPROPion XL (24 HR) [Wellbutrin Xl] 150 mg PO DAILY 11/16/16 [History] Cetirizine HCl [Zyrtec] 10 mg PO DAILY 11/16/16 [History] Cyclobenzaprine [Flexeril] 10 mg PO HS PRN 11/16/16 [History] Diltiazem HCl [Diltiazem 24Hr Cd] 240 mg PO DAILY 11/16/16 [History] Fluticasone Propionate Nasal [Flonase] 100 mcg NS DAILY 11/16/16 [History] Fluticasone/Salmeterol [Advair 100-50 Diskus] 2 puff IH DAILY 11/16/16 [History] Glimepiride [Amaryl] 4 mg PO BID 11/16/16 [History] Levothyroxine Sodium [Synthroid] 137 mcg PO QAM 11/16/16 [History] Multivitamin [Multi-Day Vitamins] 1 tab PO DAILY 11/16/16 [History] [place]-3/Dha/Epa/Fish Oil [Fish Oil 1,000 mg Softgel] 1,000 mg PO DAILY 11/16/16 [History] Simvastatin [Zocor] 20 mg PO HS 11/16/16 [History] Tramadol HCl [Ultram] 100 mg PO Q4H PRN 11/16/16 [History] Ubidecarenone [Co Q-10] 100 mg PO DAILY 11/16/16 [History] Linagliptin/Metformin HCl [Jentadueto 2.5 mg-1000 mg Tab] 1 each PO BIDWM [History] Allopurinol [Zyloprim 300 MG] 300 mg PO DAILY 07/27/17 [History] Montelukast [Singulair] 10 mg PO HS 07/27/17 [History] Warfarin [Coumadin] 7.5 mg PO MOTUWEFRSA 07/27/17 [History] Valsartan/Hydrochlorothiazide [Diovan Hct 320-25 mg Tablet] 1 tab PO DAILY 09/06 [History] Warfarin [Coumadin] 11.25 mg PO SUTH 09/06/17 [History] 3 Allergy/AdvReac Type Severity Reaction Status Date / Time sulfamethoxazole Allergy Hives Verified 09/06/17 17:01 [From Bactrim] trimethoprim [From Bactrim] Allergy Hives Verified 09/06/17 17:01 atenolol AdvReac Palpitation Verified 09/06/17 17:01 s All Systems: The remainder of the systems were reviewed and are negative Review of Systems: Constitutional: Denies fever, chills HEENT: Denies headache, neck pain, sore throat, rhinorrhea. Reports double vision Heart: Denies chest pain palpitations Lungs: Denies shortness of breath cough Abdomen: Denies abdominal pain nausea vomiting diarrhea Back: Denies back pain Kidney: Denies dysuria, hematuria Skin: warm and dry Extremities: Denies swelling, pain Neuro: As per history of present illness Physical Examination - Vital Signs Vital Signs: Initial Vital Signs Temp Pulse Resp BP Pulse Ox 97.5 F L 99 18 144/97 99 09/06/17 15:24 09/06/17 15:24 09/06/17 15:24 09/06/17 15:24 09/06/17 15:24 - Exam Exam: General: without distress HEENT: Head atraumatic, normocephalic, neck nontender to palpation, absent lymphadenopathy, Moist Mucous Membranes, Heart: Regular rate and rhythm with no murmur Lungs: Clear to auscultation bilaterally Abdomen: Soft nontender, nondistended positive bowel sounds Skin: warm and dry Extremities: Absent pedal edema, Vascular: Pedal and radial pulses 2 out of 4 - Constitutional General appearance: comfortable - Neurologic Sensorimotor examination: intact Motor examination - right side: 5: deltoids, biceps, triceps, wrist flexion, wrist extension, shirrer, hip flexors, tibialis Anterior, quadriceps, toe extension (EHL), plantarflexion Motor examination - left side: 09/26: deltoids, biceps, triceps, wrist flexion, wrist extension, hip flexors, shirrer, quadriceps, tibialis Anterior, toe extension (EHL), plantarflexion Detailed sensory examination: intact Reflex and gait examination: ataxic gate (Patient unable to ambulate due to imbalance) Reflexes: Biceps: 2+, Triceps: 2+, Brachioradialis: 2+, Patella: 2+, Achilles: 2 + Mental Status Examination: awake, alert, oriented to person, oriented to place, oriented to time, follows commands appropriately, no aphasia, no aproxia Cranial nerve examination: PERRL, visual mclaughlin intact, mastication intact, no facial asymmetry is present, no dysarthria, hearing is intact symmetrically, soft palate elevates bilaterally upon phonation, flexes SCM and trapezius muscles symmetrically with full power, tongue protrudes midline, no atrophy or facial fasiculations present Cranial Nerve Exam: CN III palsy: Left Cerebellar examination: performs finger to nose and heel to mitchell symmetrically without ataxia, no difficulty with rapid alternating movements Ocular dysmotility: ocular dysmetria Results - Laboratory Findings CBC and BMP: 09/07/17 04:36 09/07/17 04:36 Abnormal lab findings: Abnormal lab results RBC 4.18 M/mcL (4.19-5.50) L 09/07/17 04:36 Hgb 12.0 g/dL (12.9-16.9) L 09/07/17 04:36 Hct 37.1 % (37.5-50.1) L 09/07/17 04:36 MPV 9.3 fL (9.4-12.4) L 09/07/17 04:36 PT 27.5 Seconds (9.4-12.1) H 09/07/17 04:36 Carbon Dioxide 30 mEq/L (23-29) H 09/07/17 04:36 POC Glucose 118 mg/dL (70-99) H 09/06/17 20:38 Serum Total Protein 6.0 g/dL (6.4-8.9) L 09/07/17 04:36 Globulin 2.2 g/dL (2.4-3.5) L 09/07/17 04:36 Triglycerides 209 mg/dL (< 150) H 09/07/17 04:36 VLDL Cholesterol, Calc 42 mg/dL (< 31) H 09/07/17 04:36 HDL Cholesterol 37 mg/dL (40-59) L 09/07/17 04:36 Consult Discharge Plan - Plan Referrals: Maggie Navarro MD [Primary Care Provider] - 09/10/17 8:30 am <Annemarie Chavez I - Last Filed: 09/07/17 17:15> Date of Encounter: 09/07/17 Assessment and Plan (1) Cerebrovascular accident Current Visit: No Status: Chronic Pt was seen and examined, my medical decision was reviewed with the Resident Physician, I agree with the documented findings, disposition and treatment plas as described except to the extent set forth below. This patient was been admitted with symptoms of double vision noted to have medial rectus paralysis in his left eye ( AMANDO) along with some difficulty with a gait and balance. With his history of prothrombin gene deficiency and with a history of previous a stroke certainly a strong possibility that he could have an another infarct, and it could be an embolic phenomenon. Is scheduled for workup I would strongly recommend that we should do the whole workup including echo and carotid He is already on Coumadin with therapeutic INR, will add antiplatelet therapy with aspirin, further recommendation will depend on the results of the workup overall he is stable probably would benefit from physical therapy evaluation for his difficulty with a gait and balance In the meantime continue to monitor his blood pressure keep it stable range. May need consultation from heme oncology as well We will follow the patient with you Annemarie Chavez MD Qualifiers: CVA mechanism: embolism Precerebral and cerebral artery: unspecified cerebral artery Qualified Code(s): I63.40 - Cerebral infarction due to embolism of unspecified cerebral artery History of Present Illness HPI: Mr. Harrison is a 51 year old male All Systems: The remainder of the systems were reviewed and are negative Physical Examination - Vital Signs Vital Signs: Initial Vital Signs Temp Pulse Resp BP Pulse Ox 97.5 F L 99 18 144/97 99 09/06/17 15:24 09/06/17 15:24 09/06/17 15:24 09/06/17 15:24 09/06/17 15:24 Results - Laboratory Findings CBC and BMP: 09/07/17 04:36 09/07/17 04:36 Abnormal lab findings: Abnormal lab results RBC 4.18 M/mcL (4.19-5.50) L 09/07/17 04:36 Hgb 12.0 g/dL (12.9-16.9) L 09/07/17 04:36 Hct 37.1 % (37.5-50.1) L 09/07/17 04:36 MPV 9.3 fL (9.4-12.4) L 09/07/17 04:36 PT 27.5 Seconds (9.4-12.1) H 09/07/17 04:36 Carbon Dioxide 30 mEq/L (23-29) H 09/07/17 04:36 Serum Total Protein 6.0 g/dL (6.4-8.9) L 09/07/17 04:36 Globulin 2.2 g/dL (2.4-3.5) L 09/07/17 04:36 Triglycerides 209 mg/dL (< 150) H 09/07/17 04:36 VLDL Cholesterol, Calc 42 mg/dL (< 31) H 09/07/17 04:36 HDL Cholesterol 37 mg/dL (40-59) L 09/07/17 04:36
[2017-09-07] MEDS: Budesonide/Formoterol 80/4.5 MDI IH SCH (10:31)
--- NOTE | 2017-09-07 12:50 | Oncology Inp Consult Note ---
<Brigette Lazar - Last Filed: 09/07/17 15:26> Date of Encounter: 09/07/17 Time of Encounter: 12:50 Assessment and Plan (1) Cerebrovascular accident Status: Chronic Assessment and plan: "MRI brain reveals Multiple punctate foci of acute infarction in the supra brain parenchyma bilaterally as well as posterior midline jennifer. Findings are compatible with thromboembolic phenomenon from a central source." Discussed above findings with patient and patients at bedside today. Given new infarct, recommendations made to stop coumadin and start new therapy with pradaxa 150 mg PO BID along with asprin 81 mg daily. Discussed initiation of Pradaxa with Dr. Martínez further given patients INR is 2.5, recommend he start Pradaxa tonight in place of coumadin, do not wait for INR to drop below 2 given patients acute infarct, history and prothrombin gene mutation. Renal function normal, continue to monitor as outpatient while on Pradaxa. Cancel coumadin clinic appointments. Discussed general course of therapy and hopeful that CVA symptoms may continue to improve with AC and ASA treatment. Appreciate continued recommendations per neurology and primary team Patient has PT/OT orders placed. Qualifiers: CVA mechanism: thrombosis Precerebral and cerebral artery: unspecified cerebral artery Qualified Code(s): I63.30 - Cerebral infarction due to thrombosis of unspecified cerebral artery (2) Heterozygous for prothrombin [id number] mutation Status: Chronic Assessment and plan: Heterozygous for mutation, risk for VTE may be estimated to be increased approximately three- to fourfold along with increased arterial thrombosis risk. No history of PE/DVT. This is the patients now second CVA occurrence. Recommendations as above to change therapy to Pradaxa. Continued management per PCP. Please refer to Dr. Martínez's attestation below for additional details. - Data of Consult Patient: new to practice Consult date: 09/07/17 Requesting Physician: Chiquita Stokes CNP Primary Care Provider: Maggie Navarro, - Consult Narrative Reason for consult: CVA, prothrombin gene mut heterozygous History of present illness: Mr. Harrison is a 51 year old male with past medical history significant for prior CVA, prothrombin gene mutation, hyperlipidemia hypertension, diabetes mellitus presented with chief complaint of double vision which he acutely noticed Thursday night while getting up to use the bathroom. He also reports some gait instability with difficulty in balance. He is on Coumadin for prothrombin gene mutation and INR was 3.1 upon his presentation. He follows closely with the coumadin clinic. Patient's CT head showed remote left full laminectomy lacunar infarct. CTA head and neck was negative. MRI brain reveals Multiple punctate foci of acute infarction in the supra brain parenchyma bilaterally as well as posterior midline jennifer. Findings are compatible with thromboembolic phenomenon from a central source. He has symptoms consistent with left 3rd nerve palsy including diplopia and blurry vision that disables him from looking downward and he is unable to track his left eye medially. Neurology has been consulted and closely following case. Past Med Surg Social Fam HX - Past Medical History Medical history: asthma, CVA, diabetes, hyperlipidemia, hypertension, thyroid disease, TIA, other (prothrombin gene mutation) Psychiatric history: depression - Past Surgical History Surgical History: orthopedic, other (shoulder surgery), other - Social History Smoking Status: Never smoker Smokeless Tobacco Status: No Alcohol use: rarely Drug use: none - Family History Mother Living Status: Hx Family Cardiac Disorders: Yes Hx Family Respiratory Disorders: No Hx Family Cancer: Yes Hx Family GI Disorders: No Hx Family Endocrine Disorder: Yes Hx Family Neuromuscular Disorders: Yes Hx Family Neurologic Disorders: Yes Hx Family HEENT Disorders: No Hx Family Autoimmune Disorders: No Brother Hx Family Endocrine Disorder: Yes (carrier of prothombin gene mutation) Medications and Allergies Albuterol Neb [Proventil Neb] 2.5 mg IH TID PRN 11/16/16 [History] Albuterol Sulfate [Albuterol Inhaler] 2 puff IH Q4H PRN 11/16/16 [History] BuPROPion XL (24 HR) [Wellbutrin Xl] 150 mg PO DAILY 11/16/16 [History] Cetirizine HCl [Zyrtec] 10 mg PO DAILY 11/16/16 [History] Cyclobenzaprine [Flexeril] 10 mg PO HS PRN 11/16/16 [History] Diltiazem HCl [Diltiazem 24Hr Cd] 240 mg PO DAILY 11/16/16 [History] Fluticasone Propionate Nasal [Flonase] 100 mcg NS DAILY 11/16/16 [History] Fluticasone/Salmeterol [Advair 100-50 Diskus] 2 puff IH DAILY 11/16/16 [History] Glimepiride [Amaryl] 4 mg PO BID 11/16/16 [History] Levothyroxine Sodium [Synthroid] 137 mcg PO QAM 11/16/16 [History] Multivitamin [Multi-Day Vitamins] 1 tab PO DAILY 11/16/16 [History] [place]-3/Dha/Epa/Fish Oil [Fish Oil 1,000 mg Softgel] 1,000 mg PO DAILY 11/16/16 [History] Simvastatin [Zocor] 20 mg PO HS 11/16/16 [History] Tramadol HCl [Ultram] 100 mg PO Q4H PRN 11/16/16 [History] Ubidecarenone [Co Q-10] 100 mg PO DAILY 11/16/16 [History] Linagliptin/Metformin HCl [Jentadueto 2.5 mg-1000 mg Tab] 1 each PO BIDWM [History] Allopurinol [Zyloprim 300 MG] 300 mg PO DAILY 07/27/17 [History] Montelukast [Singulair] 10 mg PO HS 07/27/17 [History] Warfarin [Coumadin] 7.5 mg PO MOTUWEFRSA 07/27/17 [History] Valsartan/Hydrochlorothiazide [Diovan Hct 320-25 mg Tablet] 1 tab PO DAILY 09/06 [History] Warfarin [Coumadin] 11.25 mg PO SUTH 09/06/17 [History] 3 Allergy/AdvReac Type Severity Reaction Status Date / Time sulfamethoxazole Allergy Hives Verified 09/06/17 17:01 [From Bactrim] trimethoprim [From Bactrim] Allergy Hives Verified 09/06/17 17:01 atenolol AdvReac Palpitation Verified 09/06/17 17:01 s Constitutional: Absent: chills, fatigue, fever(s), weakness Eyes: Present: as per HPI, blurry vision, diplopia Nose, mouth and throat: Absent: headache(s) Cardiovascular: Absent: chest pain, irregular heart rhythm Respiratory: Absent: cough, dyspnea Gastrointestinal: Absent: abdominal pain, change in bowel habits, hematemesis, hematochezia, melena Additional comments: denies dysuria or hematuria Musculoskeletal: Absent: muscle weakness, numbness, tingling Integumentary: Absent: wounds Neurological: Present: as per HPI, disequilibrium. Absent: confusion, focal weakness, headache(s), numbness, tingling Psychiatric: Absent: change in appetite Hematologic/Lymphatic: Present: as per HPI Oncology - Exam - Constitutional Vitals: Temp Pulse Resp BP Pulse Ox 98.5 F 86 18 120/79 94 09/07/17 12:21 09/07/17 12:21 09/07/17 12:21 09/07/17 12:21 09/07/17 12:21 General appearance: cooperative, no acute distress, no febrile - Head Head exam: Present: atraumatic - ENT ENT exam: Present: mucous membranes moist - Respiratory Respiratory exam: Present: CTAB. Absent: respiratory distress - Cardiovascular Cardiovascular exam: Present: RRR, +S1, +S2 - GI/Abdominal GI/Abdominal exam: Present: normal bowel sounds, soft. Absent: tenderness - Extremities Exam Extremities exam: Present: normal inspection. Absent: calf tenderness - Neurological Exam Neurological exam: Present: alert, oriented X3, no focal deficits, strengths equal and symetr throughout. Absent: speech deficit Additional comments: disequilibrium/ataxia with ambulation, unable to track left eye medially - Psychiatric Psychiatric exam: Present: normal affect, normal mood - Skin Skin exam: Present: dry, intact, normal color, warm Oncology - Results Labs: Short CBC 09/07/17 Range/Units 04:36 WBC 6.2 (4.3-11.1) K/mcL Hgb 12.0 L (12.9-16.9) g/dL Hct 37.1 L (37.5-50.1) % Plt Count 242 (140-400) K/mcL Neutrophils # 3.7 (1.6-8.9) K/mcL BMP 09/07/17 04:36 Sodium 140 Potassium 3.7 Chloride 106 Carbon Dioxide 30 H BUN 12 Creatinine 0.83 Glucose 99 Calcium 9.2 Liver Function 09/07/17 Range/Units 04:36 Total Bilirubin 0.6 (0.3-1.0) mg/dL AST 19 (13-39) Units/L ALT 11 (7-52) Units/L Alkaline Phosphatase 93 (34-104) Units/L Albumin 3.8 (3.5-5.7) g/dL Consult Discharge Plan - Plan Referrals: Maggie Navarro MD [Primary Care Provider] - 09/10/17 8:30 am <Mikey Martínez - Last Filed: 09/08/17 08:20> Date of Encounter: 09/07/17 - Data of Consult Requesting Physician: Chiquita Stokes CNP Primary Care Provider: Maggie Navarro, - Consult Narrative History of present illness: Mr. Harrison is a 51 year old male Oncology - Exam - Constitutional Vitals: Temp Pulse Resp BP Pulse Ox 98.3 F 97 18 142/90 94 09/08/17 07:50 09/08/17 07:50 09/08/17 07:55 09/08/17 07:50 09/08/17 07:55 Oncology - Results Labs: Short CBC 09/08/17 Range/Units 05:02 WBC 5.7 (4.3-11.1) K/mcL Hgb 11.9 L (12.9-16.9) g/dL Hct 37.3 L (37.5-50.1) % Plt Count 242 (140-400) K/mcL Neutrophils # 3.6 (1.6-8.9) K/mcL BMP 09/08/17 05:02 Sodium 139 Potassium 3.6 Chloride 107 Carbon Dioxide 26 BUN 14 Creatinine 0.82 Glucose 102 Calcium 9.2 - Attending Attestation seen and examined patient and agree with assessment and plan. Patient with heterozygous prothrombin gene mutation. Young men with prothrombin gene mutation to occasionally manifest early CVAs. he has had therapeutic anticoagulation and had repeat CVA. Therefore, will switch him to dabigatran (thrombin inhibitor) + baby aspirin to see if we can prevent further events in the future.
[2017-09-07] MEDS: 0.9 % Sodium Chloride 1,000 ML IVC SCH (15:55)
[2017-09-07] MEDS ORDERED: *HR* Warfarin 7.5 MG TABLET PO SCH (18:00)
[2017-09-07] MEDS: *HR* Dabigatran 150 MG CAPSULE PO SCH (20:19)
--- NOTE | 2017-09-07 20:30 | Internal Med Progress Note ---
Date of Encounter: 09/07/17 Time of Encounter: 09:00 - Assessment and plan (1) Cerebrovascular accident Current Visit: No Status: Chronic Assessment and plan: "MRI brain reveals multiple punctuate foci of acute infarction in the super brain parenchyma bilaterally as well as posterior midline jennifer. Findings are compatible with thromboembolic phenomenon from a central source" Patient's being followed by neurology Also being followed by hematology who did place the patient on Pradaxa and stopped Coumadin We will continue to monitor blood pressure and neuro checks Echo with no PFO Neck/head CTAs unremarkable CT of head with no evidence of acute intracranial hemorrhage evidence of remote left thalamus lacunar infarct CAROL in am per neurology cont neuro checks Qualifiers: CVA mechanism: embolism Precerebral and cerebral artery: unspecified cerebral artery Qualified Code(s): I63.40 - Cerebral infarction due to embolism of unspecified cerebral artery (2) Diabetes mellitus, type 2 Current Visit: Yes Status: Chronic Assessment and plan: 1. Hold oral home meds. 2. Will place on SSI and monitor glucose closely. 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 Patient was seen by hematology-due to second CVA occurrence -hematology recommending to change Coumadin therapy to Pradaxa (4) HTN (hypertension) Current Visit: Yes Status: Chronic Assessment and plan: 1. Hold oral home meds and monitor BP closely, allowing for autoregulation.- Blood pressure stable at this time 2. Will allow permissive hypertension and treat as necessary if SBP > 180. Qualifiers: Hypertension type: essential hypertension Qualified Code(s): I10 - Essential (primary) hypertension (5) Diplopia Current Visit: Yes Status: Acute Assessment and plan: 1. History and work-up concerning for stroke. 2. Will order MRI, ECHO, CTA neck. 3. Neurology already consulted from ER. 4. Patient therapeutic on Coumadin. Will resume dosing tomorrow given INR is 3.1 now and above goal of 2-3. 5. Monitor daily PT/INR. 6. Consult HEM/ONC for further guidance regarding anti-coagulation and further stroke prevention. (6) DVT prophylaxis Current Visit: Yes Status: Acute Assessment and plan: 1. Patient's placed on Pradaxa per hematology's recommendations. - Time Spent With Patient Total time spent is greater than 50% in coordination of care (as documented) at patient's floor/unit and/or counseling patient: - Subjective Interval history: I examined the patient at bedside. I did see the patient earlier in the day. Patient continues to experience diplopia denies any vertigo, there are no focal deficits noted, deficiency and third cranial nerve left eye. Patient voices concern about recurrence of stroke and possibly losing sight in his left eye. - Constitutional Vitals: Temp Pulse Resp BP Pulse Ox 98.7 F 104 16 125/86 92 09/07/17 18:27 09/07/17 18:27 09/07/17 18:27 09/07/17 18:27 09/07/17 18:27 General appearance: Present: cooperative, A&O X 3, pleasant, no acute distress, answers questions appropriately - Head Head exam: Present: atraumatic, normocephalic - Eye Eye exam: Present: PERRL, conjuntiva pink, sclera anicteric Pupils: Present: PERRL Additional comments: Continues to experience diplopia blurry vision which disables him from looking downward he is unable to track his left eye medially - Neck Neck exam general surgery: Present: supple, trachea midline. Absent: lymphadenopathy - Respiratory Respiratory exam: Present: CTAB. Absent: accessory muscle use, rales, rhonchi, wheezes - Cardiovascular Cardiovascular exam: Present: RRR, +S1, +S2. Absent: diastolic murmur, gallop, rubs, systolic murmur - GI/Abdominal GI/Abdominal exam: Present: normal bowel sounds, soft, no peritoneal signs. Absent: distended, tenderness - Extremities Exam Extremities exam: Present: warm, radial pulses palpable and symmetrical. Absent : calf tenderness, cyanotic, pedal edema - Neurological Exam Neurological exam: Present: CN II-XII intact, oriented X3, no focal deficits. Absent: pronater drift, facial droop, speech deficit - Skin Skin exam: Present: dry, intact Internal Medicine: Result - Labs CBC & Chem 7: 09/07/17 04:36 09/07/17 04:36 Labs: Short CBC 09/07/17 Range/Units 04:36 WBC 6.2 (4.3-11.1) K/mcL Hgb 12.0 L (12.9-16.9) g/dL Hct 37.1 L (37.5-50.1) % Plt Count 242 (140-400) K/mcL Neutrophils # 3.7 (1.6-8.9) K/mcL BMP 09/07/17 04:36 Sodium 140 Potassium 3.7 Chloride 106 Carbon Dioxide 30 H BUN 12 Creatinine 0.83 Glucose 99 Calcium 9.2 Liver Function 09/07/17 Range/Units 04:36 Total Bilirubin 0.6 (0.3-1.0) mg/dL AST 19 (13-39) Units/L ALT 11 (7-52) Units/L Alkaline Phosphatase 93 (34-104) Units/L Albumin 3.8 (3.5-5.7) g/dL - ABG Interpretation ABG results: PT/INR, D-dimer PT 27.5 Seconds (9.4-12.1) H 09/07/17 04:36 - Impressions Impressions Neck CTA 09/06/17 20:22 IMPRESSION: Unremarkable CTA of the neck. D/ / Desmond Bill MD / Desmond Bill MD Interpreting Provider: Desmond Bill MD Echocardiogram 09/07/17 00:00 Impressions: LVEF 50%. Mild left ventricular diastolic dysfunction. RV is dilated. Function appears normal. Trace aortic regurgitation. Mild mitral regurgitation. Unable to estimate RVSP - suboptimal TR signal. Mild elevation of RA pressures. Ascending aorta is dilated, 4.0cm. Consider dedicated CT imaging. No PFO with agitated saline contrast. Left Ventricular Wall Motion: Rest Echo Findings All wall segments showed normal motion. Findings: Study Quality * Technically adequate exam. ECG Findings * Normal sinus rhythm. Left Ventricle * LVEF 50%. * Normal LV chamber size, wall thickness. * Mild left ventricular diastolic dysfunction. Right Ventricle * RV is dilated. Function appears normal. Left Atrium * Normal left atrial size. Right Atrium * Normal right atrial size. Aortic Valve * Trileaflet aortic valve. * No aortic stenosis. * Trace aortic regurgitation. Mitral Valve * Normal mitral valve structure. * No mitral stenosis. * Mild mitral regurgitation. Tricuspid Valve * Normal tricuspid valve structure. * Trace tricuspid regurgitation. * Estimated RA pressure is 8 mmHg. * Unable to estimate RVSP. Pulmonic Valve * Pulmonic valve is not well visualized. * No pulmonic stenosis. * Trace pulmonic regurgitation. Pulmonary Artery * Pulmonary artery not well visualized. Aorta * Ascending aorta is dilated, 4.0cm. Pericardium * There is no pericardial effusion present. Interatrial Septum * No evidence of PFO by color Doppler. IVC * The IVC is not dilated. * < 50% respiratory change. Brain MRI 09/07/17 09:32 IMPRESSION: 1. Multiple punctate foci of acute infarction in the supra___ brain parenchyma bilaterally as well as posterior midline jennifer. Findings are compatible with thromboembolic phenomenon from a central source. 2. Parenchymal volume loss and sequela of moderate chronic microvascular ischemic changes. Multiple bilateral old lacunar infarctions also present. The findings were sent to the Radiology Results Communication Center at 11:13 am on 09/07/2017to be communicated to a licensed caregiver. D/ / 09/07/2017 11:21:56 Lopez Perry MD / Sharon Oneil Interpreting Provider: Lopez Perry MD - Diagnostic Studies Other Images Additional comments: Head CT 09/06/17 15:43 IMPRESSION: 1. No evidence of acute intracranial hemorrhage. 2. Nonspecific white matter disease, likely related to chronic small vessel ischemia. 3. Evidence of remote left thalamus lacunar infarct. D/ / 09/06/2017 16:23:50 Talat Pacheco MD / radha Interpreting Provider: Talat Pacheco MD Head CTA 09/06/17 16:36 IMPRESSION: No focal arterial narrowing. No definite aneurysm. If clinical symptoms continue, consider MRI of the head with and without contrast D/ / Juanito Lira / Juanito Lira Interpreting Provider: Juanito Lira Neck CTA 04/15/18 20:22 IMPRESSION: Unremarkable CTA of the neck. D/ / Desmond Bill MD / Desmond Bill MD Interpreting Provider: Desmond Bill MD Echocardiogram 09/07/17 00:00 Impressions: LVEF 50%. Mild left ventricular diastolic dysfunction. RV is dilated. Function appears normal. Trace aortic regurgitation. Mild mitral regurgitation. Unable to estimate RVSP - suboptimal TR signal. Mild elevation of RA pressures. Ascending aorta is dilated, 4.0cm. Consider dedicated CT imaging. No PFO with agitated saline contrast. Left Ventricular Wall Motion: Rest Echo Findings All wall segments showed normal motion. Findings: Study Quality * Technically adequate exam. ECG Findings * Normal sinus rhythm. Left Ventricle * LVEF 50%. * Normal LV chamber size, wall thickness. * Mild left ventricular diastolic dysfunction. Right Ventricle * RV is dilated. Function appears normal. Left Atrium * Normal left atrial size. Right Atrium * Normal right atrial size. Aortic Valve * Trileaflet aortic valve. * No aortic stenosis. * Trace aortic regurgitation. Mitral Valve * Normal mitral valve structure. * No mitral stenosis. * Mild mitral regurgitation. Tricuspid Valve * Normal tricuspid valve structure. * Trace tricuspid regurgitation. * Estimated RA pressure is 8 mmHg. * Unable to estimate RVSP. Pulmonic Valve * Pulmonic valve is not well visualized. * No pulmonic stenosis. * Trace pulmonic regurgitation. Pulmonary Artery * Pulmonary artery not well visualized. Aorta * Ascending aorta is dilated, 4.0cm. Pericardium * There is no pericardial effusion present. Interatrial Septum * No evidence of PFO by color Doppler. IVC * The IVC is not dilated. * < 50% respiratory change. Brain MRI 09/07/17 09:32 IMPRESSION: 1. Multiple punctate foci of acute infarction in the supra___ brain parenchyma bilaterally as well as posterior midline jennifer. Findings are compatible with thromboembolic phenomenon from a central source. 2. Parenchymal volume loss and sequela of moderate chronic microvascular ischemic changes. Multiple bilateral old lacunar infarctions also present. The findings were sent to the Radiology Results Communication Center at 11:13 am on 09/07/2017to be communicated to a licensed caregiver. D/ / 09/07/2017 11:21:56 Lopez Perry MD / Sharon Oneil Interpreting Provider: Lopez Perry MD - VTE Reasons for not Prescribing Prophylaxis: Not indicated-Anticoagulated or INR therapeutic Consult Discharge Plan - Plan Referrals: Maggie Navarro MD [Primary Care Provider] - 09/10/17 8:30 am
[2017-09-08 06:13] LABS: Basophils % 0.7 %; Eosinophils # 0.2 K/mcL (0.0-0.6); Eosinophils % 2.8 %; Hematocrit 37.3 % (37.5-50.1); Hemoglobin 11.9 g/dL (12.9-16.9); Immature Granulocytes % 0.5 % (0-4); Lymphocytes # 1.3 K/mcL (0.6-4.6); Lymphocytes % 23.3 %; Mean Corpuscular HGB Conc 31.9 g/dL (31.6-35.5); Mean Corpuscular Hemoglobin 28.4 pg (28.0-33.3); Mean Platelet Volume 9.7 fL (9.4-12.4); Monocytes # 0.5 K/mcL (0.0-1.3); Monocytes % 8.9 %; Neutrophils # 3.6 K/mcL (1.6-8.9); Platelet Count 242 K/mcL (140-400); Red Blood Count 4.19 M/mcL (4.19-5.50); Red Cell Distribution Width 13.3 % (11.5-14.5); Segmented Neutrophils % 63.8 %
[2017-09-08 06:32] LABS: BUN/Creatinine Ratio 17 (6-26); Blood Urea Nitrogen 14 mg/dL (6-20); Calcium 9.2 mg/dL (8.6-10.3); Carbon Dioxide 26 mEq/L (23-29); Chloride 107 mEq/L (98-107); Glucose 102 mg/dL (70-105); Osmolality,Calculated 289 (280-300); Potassium 3.6 mEq/L (3.5-5.1); Sodium 139 mEq/L (136-145); eGFR For African Americans > 60 (> 60); eGFR For Non-African Americans > 60 (> 60)
[2017-09-08] MEDS: Budesonide/Formoterol 80/4.5 MDI IH SCH (07:52)
[2017-09-08] MEDS: Insulin LISPRO 300 UNITS/3 ML VIAL SQ SCH ×3 (08:06→17:23)
[2017-09-08] MEDS ORDERED: 0.9 % Sodium Chloride 500 ML IVC ONE (08:58)
[2017-09-08] MEDS ORDERED: Tetracaine/Benzocaine/Butamben 200MG/SPRAY (100SPY/BOT) MM ONE (08:58)
[2017-09-08] MEDS ORDERED: Lidocaine Viscous Oral Soln 15 ML SOLUTION MM PRN (08:58)
[2017-09-08] MEDS: *HR* FentaNYL (PF) 100 MCG/2 ML VIAL IVP PRN ×2 (09:45→09:50)
[2017-09-08] MEDS: *HR* Midazolam HCl 5 MG/5 ML VIAL IVP PRN ×2 (09:45→09:50)
--- NOTE | 2017-09-08 10:56 | Neurology Progress Note ---
<Omar Holland - Last Filed: 09/08/17 10:54> Date of Encounter: 09/08/17 Time of Encounter: 10:54 Assessment and Plan (1) Cerebrovascular accident Current Visit: Yes Status: Chronic MRI shows: 1. Multiple punctate foci of acute infarction in the supra___ brain parenchyma bilaterally as well as posterior midline jennifer. Findings are compatible with thromboembolic phenomenon from a central source. 2. Parenchymal volume loss and sequela of moderate chronic microvascular ischemic changes. Multiple bilateral old lacunar infarctions also present. Head and neck CT within normal limits. Echocardiogram shows LVEF of 50% with mild left ventricular diastolic dysfunction, dilation of right ventricle and elevated pressure in the right atrium. Ascending aorta is dilated 4 cm. No wall segment abnormalities, absent PFO. Plan: Patient will undergo CAROL to rule out cardiac source this morning. Continue aspirin, statin. Physical therapy recommends short-term rehabilitation at inpatient rehabilitation. Occupational therapy recommended skilled OT services as well. Qualifiers: CVA mechanism: embolism Precerebral and cerebral artery: unspecified cerebral artery Qualified Code(s): I63.40 - Cerebral infarction due to embolism of unspecified cerebral artery (2) Diplopia Current Visit: Yes Status: Acute Continues to have diplopia secondary to left oculomotor nerve palsy. (3) Cranial nerve III palsy Current Visit: Yes Status: Acute Qualifiers: Laterality: left Qualified Code(s): H49.02 - Third [oculomotor] nerve palsy , left eye (4) Essential hypertension Current Visit: Yes Status: Chronic controlled continue home medication. (5) Diabetes mellitus, type 2 Current Visit: Yes Status: Chronic controlled HGA1c 4.9 Qualifiers: Diabetes mellitus nursing home insulin use: without termite treater use Diabetes mellitus complication status: with neurologic complications Diabetes mellitus complication detail: with other neurological complication Qualified Code(s): E11.49 - Type 2 diabetes mellitus with other diabetic neurological complication (6) Heterozygous for prothrombin [id number] mutation Current Visit: Yes Status: Chronic Patient failed anticoagulation with warfarin. Oncology changed anticoagulation pradaxa which has now been started. (7) Morbid obesity with BMI of 40.0-44.9, adult Current Visit: Yes Status: Chronic Subjective Principal diagnosis: CVA thromboembolic in origin Interval history: NO acute overnight events. Patient undergoing CAROL this morning. He has not complaints. Objective - Constitutional Vitals: Temp Pulse Resp BP Pulse Ox 97.9 F 89 18 108/79 97 09/08/17 09:14 09/08/17 09:14 09/08/17 09:14 09/08/17 09:14 09/08/17 09:14 General appearance: Present: A&O X 3 - Neurological Exam Sensorimotor examination: Present: intact Motor Examination: Present: grossly full strength in all extremities Motor examination - right side: 5/5: deltoids, biceps, triceps, wrist flexion, wrist extension, shot core drill operator helper, hip flexors, tibialis Anterior, quadriceps, toe extension (EHL), plantarflexion Motor examination - left side: 5/5: deltoids, biceps, triceps, wrist flexion, wrist extension, hip flexors, shot core drill operator helper, quadriceps, tibialis Anterior, toe extension (EHL), plantarflexion Sensation intact: Present: intact Reflex and gait examination: ataxic gate (Patient unable to ambulate due to imbalance) Reflexes: Biceps: 2+, Triceps: 2+, Brachioradialis: 2+, Patella: 2+, Achilles: 2 + Mental Status Examination: Present: awake, alert, oriented to person, oriented to place, oriented to time, follows commands appropriately, no aphasia, no aproxia Cranial nerve examination: Present: PERRL, visual mclaughlin intact, mastication intact, no facial asymmetry is present, no dysarthria, hearing is intact symmetrically, soft palate elevates bilaterally upon phonation, flexes SCM and trapezius muscles symmetrically with full power, tongue protrudes midline, no atrophy or facial fasiculations present Cranial Nerve Exam: CN III palsy: Left Cerebellar examination: Present: performs finger to nose and heel to mitchell symmetrically without ataxia, no difficulty with rapid alternating movements Ocular dysmotility: ocular dysmetria - Other Additional findings: General: without distress HEENT: Head atraumatic, normocephalic, EOMI, PERRL, neck nontender to palpation , absent lymphadenopathy, Moist Mucous Membranes, Heart: Regular rate and rhythm with no murmur Lungs: Clear to auscultation bilaterally Abdomen: Soft nontender, nondistended positive bowel sounds Skin: warm and dry Extremities: Absent pedal edema, Vascular: Pedal and radial pulses 2 out of 4 - VTE Reasons for not Prescribing Prophylaxis: Not indicated-Anticoagulated or INR therapeutic Results - Laboratory Findings CBC and BMP: 09/08/17 05:02 09/08/17 05:02 Abnormal lab findings: Abnormal lab results Hgb 11.9 g/dL (12.9-16.9) L 09/08/17 05:02 Hct 37.3 % (37.5-50.1) L 09/08/17 05:02 PT 22.0 Seconds (9.4-12.1) H 09/08/17 05:02 POC Glucose 110 mg/dL (70-99) H 09/07/17 19:48 Serum Total Protein 6.0 g/dL (6.4-8.9) L 09/07/17 04:36 Globulin 2.2 g/dL (2.4-3.5) L 09/07/17 04:36 Triglycerides 209 mg/dL (< 150) H 09/07/17 04:36 VLDL Cholesterol, Calc 42 mg/dL (< 31) H 09/07/17 04:36 HDL Cholesterol 37 mg/dL (40-59) L 09/07/17 04:36 Consult Discharge Plan - Plan Referrals: Maggie Navarro MD [Primary Care Provider] - 09/10/17 8:30 am <Annemarie Chavez I - Last Filed: 09/08/17 15:28> Date of Encounter: 09/08/17 Assessment and Plan (1) Cerebrovascular accident Current Visit: Yes Status: Chronic Pt was seen and examined, my medical decision was reviewed with the Resident Physician, I agree with the documented findings, disposition and treatment plas as described except to the extent set forth below Scheduled for CAROL today , overall he is a stable anticoagulation has been changed We will follow the CAROL results Annemarie Chavez MD Qualifiers: CVA mechanism: embolism Precerebral and cerebral artery: unspecified cerebral artery Qualified Code(s): I63.40 - Cerebral infarction due to embolism of unspecified cerebral artery Objective - Constitutional Vitals: Temp Pulse Resp BP Pulse Ox 97.7 F 96 18 130/87 94 09/08/17 11:18 09/08/17 11:18 09/08/17 11:18 09/08/17 11:18 09/08/17 11:18 Results - Laboratory Findings CBC and BMP: 09/08/17 05:02 09/08/17 05:02 Abnormal lab findings: Abnormal lab results Hgb 11.9 g/dL (12.9-16.9) L 09/08/17 05:02 Hct 37.3 % (37.5-50.1) L 09/08/17 05:02 PT 22.0 Seconds (9.4-12.1) H 09/08/17 05:02 Serum Total Protein 6.0 g/dL (6.4-8.9) L 09/07/17 04:36 Globulin 2.2 g/dL (2.4-3.5) L 09/07/17 04:36 Triglycerides 209 mg/dL (< 150) H 09/07/17 04:36 VLDL Cholesterol, Calc 42 mg/dL (< 31) H 09/07/17 04:36 HDL Cholesterol 37 mg/dL (40-59) L 09/07/17 04:36
[2017-09-08] MEDS: Aspirin 81 MG TAB.CHEW PO SCH (11:11)
[2017-09-08] MEDS: Loratadine 10 MG TABLET PO SCH (11:11)
[2017-09-08] MEDS: Multivit/Ca/Min/Fe/FA 1 TAB TABLET PO SCH (11:11)
[2017-09-08] MEDS: *HR* Dabigatran 150 MG CAPSULE PO SCH ×2 (11:11→20:29)
[2017-09-08] MEDS: Fluticasone Propionate Nasal 50 MCG/SPRAY BOTTLE NS SCH (11:12)
[2017-09-08] MEDS: (Omega-3/Dha/Epa/Fish Oil [Fish Oil 1,000 Mg Softgel]) PO SCH (11:14)
[2017-09-08] MEDS: (Ubidecarenone [Co Q-10] 100 MG) PO SCH (11:15)
--- NOTE | 2017-09-08 14:14 | Internal Med Progress Note ---
Date of Encounter: 09/08/17 Time of Encounter: 14:14 - Assessment and plan (1) Cerebrovascular accident Current Visit: Yes Status: Chronic Assessment and plan: presented with complaints of diplopia. Brain MRI showed multiple punctuate foci of acute infarction in the super brain parenchyma bilaterally as well as posterior midline jennifer; compatible with thromboembolic phenomenon from a central source. TTE with EF 50%, no evidence of PFO and dilated ascending aorta. Previously on Coumadin for history of CVA. Anticoagulation changed to Pradaxa/ASA. TTE pending Qualifiers: CVA mechanism: embolism Precerebral and cerebral artery: unspecified cerebral artery Qualified Code(s): I63.40 - Cerebral infarction due to embolism of unspecified cerebral artery (2) Diabetes mellitus, type 2 Current Visit: Yes Status: Chronic Assessment and plan: per hx. Hgb A1c 4.9. SSI Qualifiers: Diabetes mellitus oil heaterman insulin use: without oil heaterman use Diabetes mellitus complication status: with neurologic complications Diabetes mellitus complication detail: with other neurological complication Qualified Code(s): E11.49 - Type 2 diabetes mellitus with other diabetic neurological complication (3) Heterozygous for prothrombin [id number] mutation Current Visit: Yes Status: Chronic Assessment and plan: per hx. previously on Coumadin however anticoagulation changed to per DEXA this hospitalization per oncology recommendations. (4) HTN (hypertension) Current Visit: Yes Status: Chronic Assessment and plan: per hx. BP controlled. Cont home BP medications Qualifiers: Hypertension type: essential hypertension Qualified Code(s): I10 - Essential (primary) hypertension (5) Diplopia Current Visit: Yes Status: Acute Assessment and plan: secondary to acute CVA (6) DVT prophylaxis Current Visit: Yes Status: Acute Assessment and plan: pradaxa - Time Spent With Patient Total time spent is greater than 50% in coordination of care (as documented) at patient's floor/unit and/or counseling patient: - Subjective Interval history: Seen and examined at bedside; patient is new to me. Information obtained from chart review and patient report. Patient says he feels about the same; still having double vision. Has some right arm weakness which she contributes to his recent surgery. No paresthesias. Says he would like to go home at discharge. - Constitutional Vitals: Temp Pulse Resp BP Pulse Ox 97.7 F 96 18 130/87 94 09/08/17 11:18 09/08/17 11:18 04/17/18 11:18 09/08/17 11:18 09/08/17 11:18 General appearance: Present: cooperative, A&O X 3, pleasant, no acute distress, answers questions appropriately - Head Head exam: Present: atraumatic, normocephalic - Eye Eye exam: Present: PERRL, conjuntiva pink, sclera anicteric Pupils: Present: PERRL - Neck Neck exam general surgery: Present: supple, trachea midline. Absent: lymphadenopathy - Respiratory Respiratory exam: Present: CTAB. Absent: accessory muscle use, rales, rhonchi, wheezes - Cardiovascular Cardiovascular exam: Present: RRR, +S1, +S2. Absent: diastolic murmur, gallop, rubs, systolic murmur - GI/Abdominal GI/Abdominal exam: Present: normal bowel sounds, soft, no peritoneal signs. Absent: distended, tenderness - Extremities Exam Extremities exam: Present: warm, radial pulses palpable and symmetrical. Absent : calf tenderness, cyanotic, pedal edema - Neurological Exam Neurological exam: Present: CN II-XII intact, oriented X3, strengths equal and symetr throughout (RUE weakness ). Absent: pronater drift, facial droop, speech deficit - Skin Skin exam: Present: dry, intact Internal Medicine: Result - Labs CBC & Chem 7: 09/08/17 05:02 09/08/17 05:02 Labs: Short CBC 09/08/17 Range/Units 05:02 WBC 5.7 (4.3-11.1) K/mcL Hgb 11.9 L (12.9-16.9) g/dL Hct 37.3 L (37.5-50.1) % Plt Count 242 (140-400) K/mcL Neutrophils # 3.6 (1.6-8.9) K/mcL BMP 09/08/17 05:02 Sodium 139 Potassium 3.6 Chloride 107 Carbon Dioxide 26 BUN 14 Creatinine 0.82 Glucose 102 Calcium 9.2 - ABG Interpretation ABG results: PT/INR, D-dimer PT 22.0 Seconds (9.4-12.1) H 09/08/17 05:02 - Impressions Impressions Chest CT 09/08/17 07:49 IMPRESSION: Ectatic ascending thoracic aorta measuring 4.2 cm. D/ / Bipin Monge MD / Bipin Monge MD Interpreting Provider: Bipin Monge MD - VTE Reasons for not Prescribing Prophylaxis: Not indicated-Anticoagulated or INR therapeutic Consult Discharge Plan - Plan Referrals: Maggie Navarro MD [Primary Care Provider] - 09/10/17 8:30 am
[2017-09-09] MEDS: traMADol 50 MG TABLET PO PRN ×2 (00:27→07:17)
[2017-09-09 05:42] LABS: INR 1.6; Prothrombin Time 17.9 Seconds (9.4-12.1)
[2017-09-09] MEDS: Insulin LISPRO 300 UNITS/3 ML VIAL SQ SCH ×2 (07:23→11:58)
[2017-09-09] MEDS: Budesonide/Formoterol 80/4.5 MDI IH SCH (07:44)
[2017-09-09] MEDS: *HR* Dabigatran 150 MG CAPSULE PO SCH (09:27)
[2017-09-09] MEDS: Multivit/Ca/Min/Fe/FA 1 TAB TABLET PO SCH (09:27)
[2017-09-09] MEDS: Fluticasone Propionate Nasal 50 MCG/SPRAY BOTTLE NS SCH (09:27)
[2017-09-09] MEDS: Aspirin 81 MG TAB.CHEW PO SCH (09:27)
[2017-09-09] MEDS: Loratadine 10 MG TABLET PO SCH (09:27)
[2017-09-09] MEDS: (Omega-3/Dha/Epa/Fish Oil [Fish Oil 1,000 Mg Softgel]) PO SCH (09:29)
[2017-09-09] MEDS: (Ubidecarenone [Co Q-10] 100 MG) PO SCH (09:30)
--- NOTE | 2017-09-09 11:01 | Discharge Summary ---
- NOTES TO OUTPATIENT PROVIDER Notes to Outpatient Provider: Slightly dilated aortic root noted on TTE EEG; recommend yearly surveillance with CT Orders not resulted at time of discharge: Pending orders 09/09/17 10:58 Hemoglobin and Hematocrit [HEME] Stat Date of Encounter: 09/09/17 Time of Encounter: 10:59 - Discharge Diagnosis (1) Cerebrovascular accident Priority: Primary Status: Chronic Comments: presented with complaints of diplopia. Brain MRI showed multiple punctuate foci of acute infarction in the super brain parenchyma bilaterally as well as posterior midline jennifer; compatible with thromboembolic phenomenon from a central source. TTE with EF 50%, no evidence of PFO and dilated ascending aorta. CAROL without evidence of LISA thrombus. Previously on Coumadin for history of CVA. Anticoagulation changed to Pradaxa/ASA. Neurology followed Qualifiers: CVA mechanism: embolism Precerebral and cerebral artery: unspecified cerebral artery Qualified Code(s): I63.40 - Cerebral infarction due to embolism of unspecified cerebral artery (2) Diabetes mellitus, type 2 Priority: Secondary Status: Chronic Comments: per hx. Hgb A1c 4.9. 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 previously on Coumadin however anticoagulation changed to Pradaxa this hospitalization per oncology recommendations. (4) HTN (hypertension) Priority: Secondary Status: Chronic Comments: per hx. BP controlled. Continue home BP medication regimen Qualifiers: Hypertension type: essential hypertension Qualified Code(s): I10 - Essential (primary) hypertension (5) Diplopia Priority: Primary Status: Acute Comments: secondary to acute CVA. Symptoms improving but not completely resolved. (6) Dilated aortic root Priority: Primary Status: Acute Comments: Ectatic ascending thoracic aorta measuring 4.2 cm. recommend yearly surveillance with CT Hospital course: See assessment and plan for hospital course Discharge discussed with: patient (Seen and examined at bedside. He still having slight diplopia but overall improved. Has some right upper extremity weakness which is secondary to his recent right shoulder surgery. Discussed discharge options and he prefers to go home with home healthcare. No facial droop, slurred speech, anesthesias.) - Time Spent with Patient Total time spent providing and/or coordinating discharge services: - Discharge Medications Prescriptions: Aspirin 81 mg PO DAILY #30 tab.chew Dabigatran [Pradaxa] 150 mg PO BID #60 capsule Home Medications: Albuterol Neb [Proventil Neb] 2.5 mg IH TID PRN 11/16/16 [History] Albuterol Sulfate [Albuterol Inhaler] 2 puff IH Q4H PRN 11/16/16 [History] BuPROPion XL (24 HR) [Wellbutrin Xl] 150 mg PO DAILY 11/16/16 [History] Cetirizine HCl [Zyrtec] 10 mg PO DAILY 11/16/16 [History] Cyclobenzaprine [Flexeril] 10 mg PO HS PRN 11/16/16 [History] Diltiazem HCl [Diltiazem 24Hr Cd] 240 mg PO DAILY 11/16/16 [History] Fluticasone Propionate Nasal [Flonase] 100 mcg NS DAILY 11/16/16 [History] Fluticasone/Salmeterol [Advair 100-50 Diskus] 2 puff IH DAILY 11/16/16 [History] Glimepiride [Amaryl] 4 mg PO BID 11/16/16 [History] Levothyroxine Sodium [Synthroid] 137 mcg PO QAM 11/16/16 [History] Multivitamin [Multi-Day Vitamins] 1 tab PO DAILY 11/16/16 [History] [place]-3/Dha/Epa/Fish Oil [Fish Oil 1,000 mg Softgel] 1,000 mg PO DAILY 11/16/16 [History] Simvastatin [Zocor] 20 mg PO HS 11/16/16 [History] Tramadol HCl [Ultram] 100 mg PO Q4H PRN 11/16/16 [History] Ubidecarenone [Co Q-10] 100 mg PO DAILY 11/16/16 [History] Linagliptin/Metformin HCl [Jentadueto 2.5 mg-1000 mg Tab] 1 each PO BIDWM [History] Allopurinol [Zyloprim 300 MG] 300 mg PO DAILY 07/27/17 [History] Montelukast [Singulair] 10 mg PO HS 07/27/17 [History] Valsartan/Hydrochlorothiazide [Diovan Hct 320-25 mg Tablet] 1 tab PO DAILY 09/06 [History] Aspirin 81 mg PO DAILY #30 tab.chew 09/09/17 [Rx] Dabigatran [Pradaxa] 150 mg PO BID #60 capsule 09/09/17 [Rx] Allergies/Adverse Reactions: 3 Allergy/AdvReac Type Severity Reaction Status Date / Time sulfamethoxazole Allergy Hives Verified 09/06/17 17:01 [From Bactrim] trimethoprim [From Bactrim] Allergy Hives Verified 09/06/17 17:01 atenolol AdvReac Palpitation Verified 09/06/17 17:01 s Date of admission: 09/08/17 14:08 Primary care physician: Maggie Navarro, Discharging clinician: Rebecca Spence Anticipated date of discharge: 09/09/17 - Constitutional Vitals: Temp Pulse Resp BP Pulse Ox 97.6 F 93 20 135/85 94 09/09/17 07:12 09/09/17 07:12 09/09/17 07:12 09/09/17 07:12 09/09/17 07:12 General appearance: Present: cooperative, A&O X 3, pleasant, no acute distress, answers questions appropriately - Head Head exam: Present: atraumatic, normocephalic - Eye Eye exam: Present: PERRL, conjuntiva pink, sclera anicteric Pupils: Present: PERRL - Neck Neck exam general surgery: Present: supple, trachea midline. Absent: lymphadenopathy - Respiratory Respiratory exam: Present: CTAB. Absent: accessory muscle use, rales, rhonchi, wheezes - Cardiovascular Cardiovascular exam: Present: RRR, +S1, +S2. Absent: diastolic murmur, gallop, rubs, systolic murmur - GI/Abdominal GI/Abdominal exam: Present: normal bowel sounds, soft, no peritoneal signs. Absent: distended, tenderness - Extremities Exam Extremities exam: Present: warm, radial pulses palpable and symmetrical. Absent : calf tenderness, cyanotic, pedal edema - Neurological Exam Neurological exam: Present: CN II-XII intact, oriented X3, no focal deficits. Absent: pronater drift, facial droop, speech deficit - Skin Skin exam: Present: dry, intact - Patient Status Disposition: Home Health Service Condition: Good Functional capacity at discharge: uses cane/walker Overall status at discharge: patient is progressing back to baseline - Discharge Instructions Instructions: Dabigatran (By mouth), Ischemic Stroke (DC), Aspirin (By mouth) Follow Up With: Maggie Navarro MD [Primary Care Provider] - 09/10/17 8:30 am - Diet and Activity Activity: as per physical therapy Diet: low fat, low cholesterol - VTE Reasons for not Prescribing Prophylaxis: Not indicated-Anticoagulated or INR therapeutic
[2017-09-09 11:23] VITALS: BP 120/82
[2017-09-09 11:40] LABS: Hematocrit 38.8 % (37.5-50.1); Hemoglobin 12.7 g/dL (12.9-16.9)
--- NOTE | 2017-09-09 13:15 | Physician Discharge Referral ---
Home Health/Hosp Referral Info Transfer to: Home Health Attending Provider: Rebecca Spence CNP Provider in Charge Post Discharge: PCP - Diagnosis (1) Cerebrovascular accident Status: Chronic (2) Diabetes mellitus, type 2 Status: Chronic (3) Heterozygous for prothrombin [id number] mutation Status: Chronic (4) HTN (hypertension) Status: Chronic (5) Diplopia Status: Acute (6) Dilated aortic root Status: Acute - Respiratory Orders None Smoking Cessation: Smoking cessation has been advised. For more information, call the [place] Tobacco Quit Line at 4-748-RFMX-NOW. - Diet/Nutrition Diet/Nutrition Orders: No Added Salt (LILA), Cardiac - Activity Activity Orders: Ambulate, Walker - Services Needed Following services are medically necessary services: Physical Therapy, Occupational Therapy - Transfer Medications Prescriptions: Aspirin 81 mg PO DAILY #30 tab.chew Dabigatran [Pradaxa] 150 mg PO BID #60 capsule Home Medications: Albuterol Neb [Proventil Neb] 2.5 mg IH TID PRN 11/16/16 [History] Albuterol Sulfate [Albuterol Inhaler] 2 puff IH Q4H PRN 11/16/16 [History] BuPROPion XL (24 HR) [Wellbutrin Xl] 150 mg PO DAILY 11/16/16 [History] Cetirizine HCl [Zyrtec] 10 mg PO DAILY 11/16/16 [History] Cyclobenzaprine [Flexeril] 10 mg PO HS PRN 11/16/16 [History] Diltiazem HCl [Diltiazem 24Hr Cd] 240 mg PO DAILY 11/16/16 [History] Fluticasone Propionate Nasal [Flonase] 100 mcg NS DAILY 11/16/16 [History] Fluticasone/Salmeterol [Advair 100-50 Diskus] 2 puff IH DAILY 11/16/16 [History] Glimepiride [Amaryl] 4 mg PO BID 11/16/16 [History] Levothyroxine Sodium [Synthroid] 137 mcg PO QAM 11/16/16 [History] Multivitamin [Multi-Day Vitamins] 1 tab PO DAILY 11/16/16 [History] [place]-3/Dha/Epa/Fish Oil [Fish Oil 1,000 mg Softgel] 1,000 mg PO DAILY 11/16/16 [History] Simvastatin [Zocor] 20 mg PO HS 11/16/16 [History] Tramadol HCl [Ultram] 100 mg PO Q4H PRN 11/16/16 [History] Ubidecarenone [Co Q-10] 100 mg PO DAILY 11/16/16 [History] Linagliptin/Metformin HCl [Jentadueto 2.5 mg-1000 mg Tab] 1 each PO BIDWM [History] Allopurinol [Zyloprim 300 MG] 300 mg PO DAILY 07/27/17 [History] Montelukast [Singulair] 10 mg PO HS 07/27/17 [History] Valsartan/Hydrochlorothiazide [Diovan Hct 320-25 mg Tablet] 1 tab PO DAILY 09/06 [History] Aspirin 81 mg PO DAILY #30 tab.chew 09/09/17 [Rx] Dabigatran [Pradaxa] 150 mg PO BID #60 capsule 09/09/17 [Rx] Allergies/Adverse Reactions: 3 Allergy/AdvReac Type Severity Reaction Status Date / Time sulfamethoxazole Allergy Hives Verified 09/06/17 17:01 [From Bactrim] trimethoprim [From Bactrim] Allergy Hives Verified 09/06/17 17:01 atenolol AdvReac Palpitation Verified 09/06/17 17:01 s Certification: Further, I certify that my clinical findings support that this patient is homebound (i.e. absences from home require considerable and taxing effort and are for medical reasons or congregational services or infrequently or short duration when for other reasons) because: Homebound Reason: Leaving home requires considerable and taxing effort due to condition Attestation: My signature below is to certify that this patient is under my care and that I, or nurse practitioner, or a physician's starch treating assistant working with me, has a face-to -face encounter with this patient.
[2017-09-10] MEDS ORDERED: *HR* Warfarin 7.5 MG TABLET PO SCH (18:00)
--- NOTE | 2017-09-11 12:07 | Electrocardiograph Report ---
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
== END 2017-09-09 14:30 | disposition home health service (06) | DRG 65 ==
LOC: 3BNU 15:22 → EMEROO 15:22 → 3BNU 18:39
PROVIDERS: ADMIT Internal Medicine; ATTEND Registered Nurse

== ENCOUNTER 2017-12-06 01:40 | Inpatient (IN) ==
[2017-12-06] MEDS ORDERED: Aspirin 81 MG TAB.CHEW PO ONE (02:01)
--- NOTE | 2017-12-06 02:02 | Emergency Department Note ---
Disposition Clinical Impression: Blurry vision, Dizziness Disposition: Admitted As Inpatient Condition: Fair Referrals: Maggie Navarro MD [Primary Care Provider] - Forms: ED Satisfaction Letter Time of Disposition: 04:15 General Adult HPI - General Chief complaint: ED Neuro Symptoms/Deficit Stated complaint: Dizziness, Blurred Vision Time Seen by Provider: 12/06/17 01:51 Source: patient, family Limitations: no limitations Nursing Notes Reviewed: Yes Vital Signs Reviewed: Yes - History of Present Illness HPI Narrative: 51-year-old male presents emergency department with concern for blurry vision and dizziness. Patient stated that his last known well was at 10:30 tonight. Patient does not report any other symptoms. No numbness and tingling upper and lower extremities. Not slurring his words per him and . Pain Scale: 0 - Related Data Home Medications Medication Instructions Recorded Confirmed Albuterol Neb [Proventil Neb] 2.5 mg IH TID PRN 11/16/16 09/06/17 Albuterol Sulfate [Albuterol 2 puff IH Q4H PRN 11/16/16 09/06/17 Inhaler] BuPROPion XL (24 HR) [Wellbutrin 150 mg PO DAILY 11/16/16 09/06/17 Xl] Cetirizine HCl [Zyrtec] 10 mg PO DAILY 11/16/16 09/06/17 Cyclobenzaprine [Flexeril] 10 mg PO HS PRN 11/16/16 09/06/17 Diltiazem HCl [Diltiazem 24Hr Cd] 240 mg PO DAILY 11/16/16 09/06/17 Fluticasone Propionate Nasal 100 mcg NS DAILY 11/16/16 09/06/17 [Flonase] Fluticasone/Salmeterol [Advair 2 puff IH DAILY 11/16/16 09/06/17 100-50 Diskus] Glimepiride [Amaryl] 4 mg PO BID 11/16/16 09/06/17 Levothyroxine Sodium [Synthroid] 137 mcg PO QAM 11/16/16 09/06/17 Multivitamin [Multi-Day Vitamins] 1 tab PO DAILY 11/16/16 09/06/17 [place]-3/Dha/Epa/Fish Oil [Fish Oil 1,000 mg PO DAILY 11/16/16 09/06/17 1,000 mg Softgel] Simvastatin [Zocor] 20 mg PO HS 11/16/16 09/06/17 Tramadol HCl [Ultram] 100 mg PO Q4H PRN 11/16/16 09/06/17 Ubidecarenone [Co Q-10] 100 mg PO DAILY 11/16/16 09/06/17 Linagliptin/Metformin HCl 1 each PO BIDWM 12/15/16 09/06/17 [Jentadueto 2.5 mg-1000 mg Tab] Allopurinol [Zyloprim 300 MG] 300 mg PO DAILY 07/27/17 09/06/17 Montelukast [Singulair] 10 mg PO HS 07/27/17 09/06/17 Valsartan/Hydrochlorothiazide 1 tab PO DAILY 09/06/17 09/06/17 [Diovan Hct 320-25 mg Tablet] Previous Rx's Medication Instructions Recorded Aspirin 81 mg PO DAILY #30 tab.chew 09/09/17 Dabigatran [Pradaxa] 150 mg PO BID #60 capsule 09/09/17 Allergies Allergy/AdvReac Type Severity Reaction Status Date / Time sulfamethoxazole Allergy Hives Verified 09/06/17 17:01 [From Bactrim] trimethoprim [From Bactrim] Allergy Hives Verified 09/06/17 17:01 atenolol AdvReac Palpitation Verified 09/06/17 17:01 s All systems ED: reviewed and negative except as stated. Review of Systems: As Per HPI Constitutional: Denies: fever Cardiovascular: Denies: chest pain Respiratory: Denies: dyspnea Gastrointestinal: Denies: abdominal pain, nausea, vomiting Genitourinary: Denies: dysuria Musculoskeletal: Denies: back pain, neck pain Neurological: Reports: other (Blurred vision). Denies: headache, numbness, paresthesias, confusion Endocrine: Denies: fatigue Past Medical History - Past Medical History Medical history: Reports: asthma, CVA, diabetes, hyperlipidemia, hypertension, thyroid disease, TIA, other Surgical history: Reports: herniorrhaphy, orthopedic, other, other Psychiatric history: Reports: depression - Social History Smoking Status: Never smoker Smokeless Tobacco Status: No Alcohol use: Reports: rarely Drug use: Reports: none Physical Exam - General Limitations: no limitations General appearance: alert, in no apparent distress - Head Head exam: normocephalic - Eye Eye exam: Present: EOMI - ENT ENT exam: normal oropharynx - Neck Neck exam: Present: trachea midline - Chest Chest inspection: Present: symmetric chest wall rise - Respiratory Respiratory exam: Present: normal lung sounds bilaterally - Cardiovascular Cardiovascular exam: Present: regular rate, normal rhythm, normal heart sounds - Abdominal Exam Abdominal exam: Present: soft, Non-Tender. Absent: distention, guarding, rebound, rigidity - Extremities Exam Extremities exam: Present: normal capillary refill - Neurological Exam Neurological exam: Present: alert, oriented X3, CN II-XII intact, other (GCS 15 , NIH is 0, subjective blurry vision) - Psychiatric Psychiatric exam: Present: normal affect, normal mood - Skin Skin exam: Present: warm, dry, intact, normal color Course Vital Signs Temperature 97.4 F L 12/06/17 01:42 Pulse Rate 98 12/06/17 01:42 Respiratory Rate 18 12/06/17 01:42 Blood Pressure 132/86 12/06/17 01:42 O2 Sat by Pulse Oximetry 92 12/06/17 01:42 Temperature 97.4 F L 12/06/17 01:42 Pulse Rate 91 12/06/17 03:01 Respiratory Rate 15 12/06/17 03:01 Blood Pressure 120/82 12/06/17 03:01 O2 Sat by Pulse Oximetry 99 12/06/17 03:01 Oxygen Delivery Oxygen Delivery Room Air Medical Decision Making - [facility] Narrative Medical decision making narrative: 51-year-old male presents emergency department with concern for ischemic stroke. NIH is 0. We obtain CT of head. Reveals evidence of remote microvascular ischemic changes and multifocal remote infarcts the frontal lobe. No acute intracranial hemorrhage or global mass effect was found. Patient was not in any acute distress and hemodynamically stable here. Chest x-ray did not reveal any acute abnormality. Patient's troponin is within normal limits. No evidence of any kidney failure as patient has normal creatinine. Patient's son anemic. EKG did not reveal any ischemic changes. In normal sinus rhythm. No evidence of what infarcts a white, Brugada syndrome, hypertrophic cardiomyopathy. I spoke with , the neurologist for further recommendations. Patient currently only on the backs of 150 mg twice a day. He stated to provide patient with aspirin have patient admitted for CTA of head and neck with him consulted. I spoke with and patient regarding admission. They agree with plan. Hemodynamically stable and not in any acute distress at that time. Dr. Lin accepted patient. Chest X-Ray 12/06/17 02:00 IMPRESSION: No acute abnormality. D/ / Gurwinder Patton MD / Gurwinder Patton MD Interpreting Provider: Gurwinder Patton MD Head CT 12/06/17 03:02 IMPRESSION: Evidence of remote microvascular ischemic changes and multifocal remote infarcts of the frontal lobes. No acute intracranial hemorrhage or global mass effect. D/ / Gurwinder Patton MD / Gurwinder Patton MD Interpreting Provider: Gurwinder Patton MD Vital Signs Temperature 97.4 F L 12/06/17 01:42 Pulse Rate 98 12/06/17 01:42 Respiratory Rate 18 12/06/17 01:42 Blood Pressure 132/86 12/06/17 01:42 O2 Sat by Pulse Oximetry 92 12/06/17 01:42 Temperature 97.4 F L 12/06/17 01:42 Pulse Rate 91 12/06/17 03:01 Respiratory Rate 15 12/06/17 03:01 Blood Pressure 120/82 12/06/17 03:01 O2 Sat by Pulse Oximetry 99 12/06/17 03:01 Oxygen Delivery Oxygen Delivery Room Air - Lab Data Result diagrams: 12/06/17 02:05 12/06/17 02:05 Lab Results 12/06/17 12/06/17 12/06/17 Range/Units 02:05 02:05 02:05 WBC 7.6 (4.3-11.1) K/mcL RBC 5.06 (4.19-5.50) M/mcL Hgb 14.3 (12.9-16.9) g/dL Hct 43.2 (37.5-50.1) % MCV 85.4 (83.0-100.0) fL MCH 28.3 (28.0-33.3) pg MCHC 33.1 (31.6-35.5) g/dL RDW 14.4 (11.5-14.5) % Plt Count 224 (140-400) K/mcL MPV 9.6 (9.4-12.4) fL Immature Gran % 0.8 (0-4) % Seg Neutrophils % 55.0 % Lymphocytes % 28.7 % Monocytes % 10.2 % Eosinophils % 4.5 % Basophils % 0.8 % Neutrophils # 4.2 (1.6-8.9) K/mcL Lymphocytes # 2.2 (0.6-4.6) K/mcL Monocytes # 0.8 (0.0-1.3) K/mcL Eosinophils # 0.3 (0.0-0.6) K/mcL Basophils # 0.1 (0.0-0.2) K/mcL PT 13.4 H (9.4-12.1) Seconds INR 1.2 APTT 50.1 H (26.0-36.0) Seconds Sodium 140 (136-145) mEq/L Potassium 3.8 (3.5-5.1) mEq/L Chloride 105 (98-107) mEq/L Carbon Dioxide 29 (23-29) mEq/L BUN 18 (6-20) mg/dL Creatinine 0.96 (0.70-1.30) mg/dL Est GFR ( Amer) > 60 (> 60) Est GFR (Non-Af Amer) > 60 (> 60) BUN/Creatinine Ratio 19 (6-26) Glucose 105 (70-105) mg/dL Calculated Osmolality 292 (280-300) Calcium 10.0 (8.6-10.3) mg/dL Troponin I < 0.03 (< 0.04) ng/mL - EKG Data EKG #1 EKG attestation: Yes I reviewed and interpreted this EKG. EKG results narrative: 1:49 Ventricular rate 94 bpm, ID interval 155 ms, QRS duration 110 ms, QT 345 ms, QTC 397 ms, left axis deviation. Sinus rhythm with a ventricular rate of 94 bpm.Evidence of any ischemic ST changes.
[2017-12-06 02:17] LABS: Basophils # 0.1 K/mcL (0.0-0.2); Basophils % 0.8 %; Eosinophils # 0.3 K/mcL (0.0-0.6); Eosinophils % 4.5 %; Hematocrit 43.2 % (37.5-50.1); Hemoglobin 14.3 g/dL (12.9-16.9); Immature Granulocytes % 0.8 % (0-4); Lymphocytes # 2.2 K/mcL (0.6-4.6); Lymphocytes % 28.7 %; Mean Corpuscular HGB Conc 33.1 g/dL (31.6-35.5); Mean Corpuscular Hemoglobin 28.3 pg (28.0-33.3); Mean Corpuscular Volume 85.4 fL (83.0-100.0); Mean Platelet Volume 9.6 fL (9.4-12.4); Monocytes # 0.8 K/mcL (0.0-1.3); Monocytes % 10.2 %; Neutrophils # 4.2 K/mcL (1.6-8.9); Platelet Count 224 K/mcL (140-400); Red Blood Count 5.06 M/mcL (4.19-5.50); Red Cell Distribution Width 14.4 % (11.5-14.5)
[2017-12-06 02:29] LABS: INR 1.2; Prothrombin Time 13.4 Seconds (9.4-12.1)
[2017-12-06 02:32] LABS: Activated Partial Thrombo Time 50.1 Seconds (26.0-36.0)
[2017-12-06 02:37] LABS: BUN/Creatinine Ratio 19 (6-26); Blood Urea Nitrogen 18 mg/dL (6-20); Carbon Dioxide 29 mEq/L (23-29); Chloride 105 mEq/L (98-107); Glucose 105 mg/dL (70-105); Osmolality,Calculated 292 (280-300); Potassium 3.8 mEq/L (3.5-5.1); Sodium 140 mEq/L (136-145); eGFR For African Americans > 60 (> 60); eGFR For Non-African Americans > 60 (> 60)
--- NOTE | 2017-12-06 02:37 | Emergency Department Note ---
Disposition Clinical Impression: Blurry vision, Dizziness Disposition: Admitted As Inpatient Condition: Fair General Adult HPI - General Chief complaint: ED Neuro Symptoms/Deficit Stated complaint: Dizziness, Blurred Vision Time Seen by Provider: 12/06/17 01:51 Source: patient, family Limitations: no limitations - History of Present Illness Pain Scale: 0 - Related Data Home Medications Medication Instructions Recorded Confirmed Albuterol Neb [Proventil Neb] 2.5 mg IH TID PRN 11/16/16 09/06/17 Albuterol Sulfate [Albuterol 2 puff IH Q4H PRN 11/16/16 09/06/17 Inhaler] BuPROPion XL (24 HR) [Wellbutrin 150 mg PO DAILY 11/16/16 09/06/17 Xl] Cetirizine HCl [Zyrtec] 10 mg PO DAILY 11/16/16 09/06/17 Cyclobenzaprine [Flexeril] 10 mg PO HS PRN 11/16/16 09/06/17 Diltiazem HCl [Diltiazem 24Hr Cd] 240 mg PO DAILY 11/16/16 09/06/17 Fluticasone Propionate Nasal 100 mcg NS DAILY 11/16/16 09/06/17 [Flonase] Fluticasone/Salmeterol [Advair 2 puff IH DAILY 11/16/16 09/06/17 100-50 Diskus] Glimepiride [Amaryl] 4 mg PO BID 11/16/16 09/06/17 Levothyroxine Sodium [Synthroid] 137 mcg PO QAM 11/16/16 09/06/17 Multivitamin [Multi-Day Vitamins] 1 tab PO DAILY 11/16/16 09/06/17 [place]-3/Dha/Epa/Fish Oil [Fish Oil 1,000 mg PO DAILY 11/16/16 09/06/17 1,000 mg Softgel] Simvastatin [Zocor] 20 mg PO HS 11/16/16 09/06/17 Tramadol HCl [Ultram] 100 mg PO Q4H PRN 11/16/16 09/06/17 Ubidecarenone [Co Q-10] 100 mg PO DAILY 11/16/16 09/06/17 Linagliptin/Metformin HCl 1 each PO BIDWM 12/15/16 09/06/17 [Jentadueto 2.5 mg-1000 mg Tab] Allopurinol [Zyloprim 300 MG] 300 mg PO DAILY 07/27/17 09/06/17 Montelukast [Singulair] 10 mg PO HS 07/27/17 09/06/17 Valsartan/Hydrochlorothiazide 1 tab PO DAILY 09/06/17 09/06/17 [Diovan Hct 320-25 mg Tablet] Previous Rx's Medication Instructions Recorded Aspirin 81 mg PO DAILY #30 tab.chew 09/09/17 Dabigatran [Pradaxa] 150 mg PO BID #60 capsule 09/09/17 Allergies Allergy/AdvReac Type Severity Reaction Status Date / Time sulfamethoxazole Allergy Hives Verified 09/06/17 17:01 [From Bactrim] trimethoprim [From Bactrim] Allergy Hives Verified 09/06/17 17:01 atenolol AdvReac Palpitation Verified 09/06/17 17:01 s Past Medical History - Past Medical History Medical history: Reports: asthma, CVA, diabetes, hyperlipidemia, hypertension, thyroid disease, TIA, other Surgical history: Reports: herniorrhaphy, orthopedic, other, other Psychiatric history: Reports: depression - Social History Smoking Status: Never smoker Smokeless Tobacco Status: No Alcohol use: Reports: rarely Drug use: Reports: none Physical Exam - General Limitations: no limitations General appearance: alert, in no apparent distress Course Vital Signs Temperature 97.4 F L 12/06/17 01:42 Pulse Rate 98 12/06/17 01:42 Respiratory Rate 18 12/06/17 01:42 Blood Pressure 132/86 12/06/17 01:42 O2 Sat by Pulse Oximetry 92 12/06/17 01:42 Temperature 97.4 F L 12/06/17 01:42 Pulse Rate 91 12/06/17 03:01 Respiratory Rate 17 12/06/17 04:18 Blood Pressure 116/75 12/06/17 04:18 O2 Sat by Pulse Oximetry 99 12/06/17 03:01 Oxygen Delivery Oxygen Delivery Room Air Medical Decision Making - Lab Data Result diagrams: 12/06/17 02:05 12/06/17 02:05 Lab Results 12/06/17 12/06/17 12/06/17 Range/Units 02:05 02:05 02:05 WBC 7.6 (4.3-11.1) K/mcL RBC 5.06 (4.19-5.50) M/mcL Hgb 14.3 (12.9-16.9) g/dL Hct 43.2 (37.5-50.1) % MCV 85.4 (83.0-100.0) fL MCH 28.3 (28.0-33.3) pg MCHC 33.1 (31.6-35.5) g/dL RDW 14.4 (11.5-14.5) % Plt Count 224 (140-400) K/mcL MPV 9.6 (9.4-12.4) fL Immature Gran % 0.8 (0-4) % Seg Neutrophils % 55.0 % Lymphocytes % 28.7 % Monocytes % 10.2 % Eosinophils % 4.5 % Basophils % 0.8 % Neutrophils # 4.2 (1.6-8.9) K/mcL Lymphocytes # 2.2 (0.6-4.6) K/mcL Monocytes # 0.8 (0.0-1.3) K/mcL Eosinophils # 0.3 (0.0-0.6) K/mcL Basophils # 0.1 (0.0-0.2) K/mcL PT 13.4 H (9.4-12.1) Seconds INR 1.2 APTT 50.1 H (26.0-36.0) Seconds Sodium 140 (136-145) mEq/L Potassium 3.8 (3.5-5.1) mEq/L Chloride 105 (98-107) mEq/L Carbon Dioxide 29 (23-29) mEq/L BUN 18 (6-20) mg/dL Creatinine 0.96 (0.70-1.30) mg/dL Est GFR ( Amer) > 60 (> 60) Est GFR (Non-Af Amer) > 60 (> 60) BUN/Creatinine Ratio 19 (6-26) Glucose 105 (70-105) mg/dL Calculated Osmolality 292 (280-300) Calcium 10.0 (8.6-10.3) mg/dL Troponin I < 0.03 (< 0.04) ng/mL Attestation Statement - Attestation Attestation: I examined this patient and my medical decision-making was reviewed with the Resident Physician. I agree with the documented findings, disposition and treatment plan as described except to the extent set forth below. Patient presents to the ED with a visual change. Patient woke up around 12:30 stating that he had a change in his vision. He denies any other symptoms. No numbness tingling weakness or difficulty speaking. Patient states he had a similar presentation with his last stroke. On examination he is awake alert in no distress. He is moving all extremities. He has an NIH of 0. He does complain of vision being off when both eyes are open. When he just opens his left eye states his vision there is normal. Pupils Reactive. Plan. Patient is concerned his symptoms are associated with stroke, however his NIH is 0. His last known well was 10 PM which was 4 hours prior. We discussed with neurology is in agreement that should not be a stroke alert. CT head and stroke workup and patient will be admitted with neurology consult.
[2017-12-06 02:39] LABS: Troponin I < 0.03 ng/mL (< 0.04)
[2017-12-06] MEDS ORDERED: Naloxone 0.4 MG/ML INJ IVP PRN (05:29)
[2017-12-06] MEDS ORDERED: Ondansetron ODT 4 MG TAB.RAPDIS SL PRN (05:32)
--- NOTE | 2017-12-06 05:37 | Internal Med History&Physical ---
Date of Encounter: 12/06/17 Time of Encounter: 05:21 Internal Medicine - H&P: HPI Chief complaint: Blurry vision, dizziness Admitted From: Home Plans for Post Hospital Care: Home History of present illness: Mr. 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 He presented to the ER with blurry vision and dizziness that began the night of admission. He denies any other symptoms including weakness, slurred speech, chest and abdominal pain. He has a baseline of right sided weakness from previous strokes. He states that his vision changes seem to be with his right eye, and are similar to changes that he had back in August with his left eye. At his other admission back in August he was found to have a cerebrovascular accident in his brain MRI showed multiple punctate foci of acute infarction in the supra brain parenchyma bilaterally as well as posterior midline jennifer which was compatible with thromboembolic phenomenon from a central source. He was previously on Coumadin prior to that incident. In the ER head CT showed evidence of remote microvascular ischemic changes and multifocal remote infarcts of the frontal lobes but no acute intracranial hemorrhage or global mass effect. Neurology was consulted in the ER, and will see the patient in the morning. Recommended CTA of head and neck. Past Med Surg Social Fam HX - Past Medical History Medical history: asthma, CVA, diabetes, hyperlipidemia, hypertension, thyroid disease, TIA, other Additional medical history: factor 5 leiden deficiency Psychiatric history: depression - Past Surgical History Surgical History: herniorrhaphy, orthopedic, other, other Additional surgical history: left inguinal hernia repair. L ankle - Social History Smoking Status: Never smoker Smokeless Tobacco Status: No Alcohol use: rarely Drug use: none - Family History Mother Living Status: Hx Family Cardiac Disorders: Yes Hx Family Respiratory Disorders: No Hx Family Cancer: Yes Hx Family GI Disorders: No Hx Family Endocrine Disorder: Yes Hx Family Neuromuscular Disorders: Yes Hx Family Neurologic Disorders: Yes Hx Family HEENT Disorders: No Hx Family Autoimmune Disorders: No Brother Hx Family Endocrine Disorder: Yes (carrier of prothombin gene mutation) Internal Medicine - H&P: Meds Albuterol Neb [Proventil Neb] 2.5 mg IH TID PRN 11/16/16 [History] Albuterol Sulfate [Albuterol Inhaler] 2 puff IH Q4H PRN 11/16/16 [History] BuPROPion XL (24 HR) [Wellbutrin Xl] 150 mg PO DAILY 11/16/16 [History] Cetirizine HCl [Zyrtec] 10 mg PO DAILY 11/16/16 [History] Cyclobenzaprine [Flexeril] 10 mg PO HS PRN 11/16/16 [History] Diltiazem HCl [Diltiazem 24Hr Cd] 240 mg PO DAILY 11/16/16 [History] Fluticasone Propionate Nasal [Flonase] 100 mcg NS DAILY 11/16/16 [History] Fluticasone/Salmeterol [Advair 100-50 Diskus] 2 puff IH DAILY 11/16/16 [History] Glimepiride [Amaryl] 4 mg PO BID 11/16/16 [History] Levothyroxine Sodium [Synthroid] 137 mcg PO QAM 11/16/16 [History] Multivitamin [Multi-Day Vitamins] 1 tab PO DAILY 11/16/16 [History] [place]-3/Dha/Epa/Fish Oil [Fish Oil 1,000 mg Softgel] 1,000 mg PO DAILY 11/16/16 [History] Simvastatin [Zocor] 20 mg PO HS 11/16/16 [History] Tramadol HCl [Ultram] 100 mg PO Q4H PRN 11/16/16 [History] Ubidecarenone [Co Q-10] 100 mg PO DAILY 11/16/16 [History] Linagliptin/Metformin HCl [Jentadueto 2.5 mg-1000 mg Tab] 1 each PO BIDWM [History] Allopurinol [Zyloprim 300 MG] 300 mg PO DAILY 07/27/17 [History] Montelukast [Singulair] 10 mg PO HS 07/27/17 [History] Valsartan/Hydrochlorothiazide [Diovan Hct 320-25 mg Tablet] 1 tab PO DAILY 09/06 [History] Aspirin 81 mg PO DAILY #30 tab.chew 09/09/17 [Rx] Dabigatran [Pradaxa] 150 mg PO BID #60 capsule 09/09/17 [Rx] 3 Allergy/AdvReac Type Severity Reaction Status Date / Time sulfamethoxazole Allergy Hives Verified 09/06/17 17:01 [From Bactrim] trimethoprim [From Bactrim] Allergy Hives Verified 09/06/17 17:01 atenolol AdvReac Palpitation Verified 09/06/17 17:01 s All Systems PM: A 10-system review of systems was performed and is negative for pertinent findings except as documented above in the HPI. - Constitutional Vitals: Temp Pulse Resp BP Pulse Ox 97.4 F L 91 17 116/75 99 12/06/17 01:42 12/06/17 03:01 12/06/17 04:18 12/06/17 04:18 12/06/17 03:01 General appearance: Present: cooperative, mild distress, A&O X 3, pleasant - Head Head exam: Present: atraumatic, normocephalic - Eye Eye exam: Present: normal appearance. Absent: EOMI, nystagmus Additional comments: Right eye would not track past midline on ocular muscle exam. Horizontal and vertical movements uncoordinated between his eyes. - Respiratory Respiratory exam: Present: CTAB. Absent: chest wall tenderness, decreased breath sounds, respiratory distress, wheezes - Cardiovascular Cardiovascular exam: Present: RRR. Absent: diastolic murmur, systolic murmur - GI/Abdominal GI/Abdominal exam: Present: normal bowel sounds, soft. Absent: distended, tenderness - Extremities Exam Extremities exam: Present: warm, radial pulses palpable and symmetrical. Absent : calf tenderness, pedal edema, tenderness - Neurological Exam Neurological exam: Present: alert, oriented X3, no focal deficits, strengths equal and symetr throughout. Absent: motor sensory deficit, facial droop, speech deficit - Skin Skin exam: Present: dry, normal color, warm. Absent: rash Internal Med - H&P Results - Labs CBC & Chem 7: 12/06/17 02:05 12/06/17 02:05 - Assessment and plan (1) Blurry vision Current Visit: Yes Status: Acute Assessment and plan: Similar to previous event in August but in opposite eye, found to be heterozygous for prothrombin [id number] mutation. On pradaxa since then. CT showed no acute intracranial hemorrhage. Neurology consult made from the ER. On exam patient had right medial rectus ocular muscle dysfunction as he could not look past midline on exam. Follow up neurology consult CTA of head and neck. (2) Dizziness Current Visit: Yes Status: Acute Assessment and plan: Secondary to blurry vision Follow up neurology consult. (3) H/O: CVA (cerebrovascular accident) Current Visit: No Status: Chronic Assessment and plan: On pradaxa, patient has had multiple CVAs. Neurology consult today. (4) Diabetes mellitus, type 2 Current Visit: No Status: Chronic Assessment and plan: Monitor, patient not on insulin. Check sugars ACHS Insulin sliding scale low dose. 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 Patient hyper-coagulable. Follow up Neurology recommendations (7) Gout Current Visit: No Status: Chronic Assessment and plan: Patient takes allopurinol Continue home meds. Qualifiers: Gout site: unspecified site Gout etiology: unspecified cause Chronicity: unspecified Qualified Code(s): M10.9 - Gout, unspecified (8) Hypothyroidism Current Visit: No Status: Chronic Assessment and plan: Patient on levothyroxine continue home meds. Qualifiers: Hypothyroidism type: unspecified Qualified Code(s): E03.9 - Hypothyroidism , unspecified - Time Spent With Patient Total time spent is greater than 50% in coordination of care (as documented) at patient's floor/unit and/or counseling patient: Greater than 35 minutes
[2017-12-06] MEDS ORDERED: D5% in Water 1,000 ML IVC PRN (07:30)
[2017-12-06] MEDS ORDERED: *HR* Dextrose 50 % in Water (Syg) 50 ML SYRINGE IVP PRN (07:30)
[2017-12-06] MEDS ORDERED: Dextrose Gel 15 GM/37.5 ML TUBE PO PRN ×2 (07:30)
[2017-12-06] MEDS: Insulin LISPRO 300 UNITS/3 ML VIAL SQ SCH ×3 (08:01→16:05)
[2017-12-06] MEDS ORDERED: Isovue-370 500 ML INFUS..BTL IV ONE (08:52)
[2017-12-06] MEDS: Valsartan 160 MG TABLET PO SCH (10:28)
[2017-12-06] MEDS: Aspirin 81 MG TAB.CHEW PO SCH (10:28)
[2017-12-06] MEDS: *HR* Dabigatran 150 MG CAPSULE PO SCH ×2 (10:28→21:19)
--- NOTE | 2017-12-06 15:15 | Neurology - Consult Note ---
Date of Encounter: 12/06/17 Time of Encounter: 15:09 Assessment and Plan (1) Cerebrovascular accident Current Visit: No Status: Chronic I am suspicious of yet another brainstem infarct. On clinical neurologic examination he does have what appears to be a right intranuclear ophthalmoplegia. With left gaze, there is left nystagmus of the left eye. The right eye does not abduct however. This is generally thought to be a lesion involving the medial longitudinal fasciculus. I am very concerned about this as he has continued to have these types of events despite appropriate treatment. He has no history of atrial fibrillation, his risk factors which include stroke, and diabetes are well controlled. Apparently when he was here back in August he was on Coumadin at that time and was since switched to Pradaxa and aspirin 81 mg daily. My recommendation is to consult hematology oncology to see whether or not her mentation of another combination of anticoagulation agents might be more beneficial. I am not convinced that more neuroimaging studies will be helpful. It may simply be that his risk factors I have taken a toll on the small blood vessels along with his predisposition to clot formation due to the genetically inherited coagulopathy. Otherwise from a neurologic perspective I would simply recommend patching the right eye. In my experience many lesions of this nature will improve over time. I will reevaluate your request. Qualifiers: CVA mechanism: embolism Precerebral and cerebral artery: unspecified cerebral artery Qualified Code(s): I63.40 - Cerebral infarction due to embolism of unspecified cerebral artery History of Present Illness HPI: The chart was reviewed, the patient was seen and examined. Mr. Harrison is a 51 year old male who was known to me due to previous episodes of cerebral infarction. He has a known history of being heterozygous for prothrombin [id number] mutation. In addition he has a history of diabetes, hyperlipidemia, hypertension, factor V Leiden deficiency as well as obesity. He was just hospitalized here back in August of this year at which time he suffered multiple punctate foci of acute infarction in the cerebral hemispheres bilaterally in addition to the jennifer. He presented with diplopia at that time which resolved after about a week or so. This time he states he went to bed at about 10:00 everything was fine. He awakened at about 1249 during the night to go to the bathroom and at that time he noticed the diplopia. He also felt a bit nauseated and has a bifrontal headache. He seems to feel that the right eyes and moving properly. Denies any additional weakness of the upper or lower extremities denies any speech difficulty. CT scan completed at the time of admission does reveal the previous multiple bihemispheric infarcts. No evidence of acute hemorrhage identified on CT scan. During his last admission he did have transesophageal echocardiogram as well as transthoracic echocardiogram. Neither was revealing of clot formation or embolic source. Apparently he was on Coumadin previously and has since been switched to a combination of Pradaxa 150 mg twice a day along with aspirin 81 mg daily. He does have horizontal diplopia which is worse with left gaze. Vital signs upon admission were stable. Labs were all normal including glucose. Past Med Surg Social Fam HX - Past Medical History Medical history: asthma, CVA, diabetes, hyperlipidemia, hypertension, thyroid disease, TIA, other Additional medical history: factor 5 leiden deficiency Psychiatric history: depression - Past Surgical History Surgical History: herniorrhaphy, orthopedic, other, other Additional surgical history: left inguinal hernia repair. L ankle - Social History Smoking Status: Never smoker Smokeless Tobacco Status: No Alcohol use: rarely Drug use: none - Family History Mother Living Status: Hx Family Cardiac Disorders: Yes Hx Family Respiratory Disorders: No Hx Family Cancer: Yes Hx Family GI Disorders: No Hx Family Endocrine Disorder: Yes Hx Family Neuromuscular Disorders: Yes Hx Family Neurologic Disorders: Yes Hx Family HEENT Disorders: No Hx Family Autoimmune Disorders: No Brother Hx Family Endocrine Disorder: Yes (carrier of prothombin gene mutation) Medications and Allergies Albuterol Neb [Proventil Neb] 2.5 mg IH TID PRN 11/16/16 [History] Albuterol Sulfate [Albuterol Inhaler] 2 puff IH Q4H PRN 11/16/16 [History] BuPROPion XL (24 HR) [Wellbutrin Xl] 150 mg PO DAILY 11/16/16 [History] Cetirizine HCl [Zyrtec] 10 mg PO DAILY 11/16/16 [History] Cyclobenzaprine [Flexeril] 10 mg PO HS PRN 11/16/16 [History] Diltiazem HCl [Diltiazem 24Hr Cd] 240 mg PO DAILY 11/16/16 [History] Fluticasone Propionate Nasal [Flonase] 100 mcg NS DAILY 11/16/16 [History] Fluticasone/Salmeterol [Advair 100-50 Diskus] 2 puff IH DAILY 11/16/16 [History] Glimepiride [Amaryl] 4 mg PO BID 11/16/16 [History] Levothyroxine Sodium [Synthroid] 137 mcg PO QAM 11/16/16 [History] Multivitamin [Multi-Day Vitamins] 1 tab PO DAILY 11/16/16 [History] [place]-3/Dha/Epa/Fish Oil [Fish Oil 1,000 mg Softgel] 1,000 mg PO DAILY 11/16/16 [History] Simvastatin [Zocor] 20 mg PO HS 11/16/16 [History] Tramadol HCl [Ultram] 100 mg PO Q4H PRN 11/16/16 [History] Ubidecarenone [Co Q-10] 100 mg PO DAILY 11/16/16 [History] Linagliptin/Metformin HCl [Jentadueto 2.5 mg-1000 mg Tab] 1 each PO BIDWM [History] Allopurinol [Zyloprim 300 MG] 300 mg PO DAILY 07/27/17 [History] Montelukast [Singulair] 10 mg PO HS 07/27/17 [History] Valsartan/Hydrochlorothiazide [Diovan Hct 320-25 mg Tablet] 1 tab PO DAILY 09/06 [History] Aspirin 81 mg PO DAILY #30 tab.chew 09/09/17 [Rx] Dabigatran [Pradaxa] 150 mg PO BID #60 capsule 09/09/17 [Rx] 3 Allergy/AdvReac Type Severity Reaction Status Date / Time sulfamethoxazole Allergy Hives Verified 09/06/17 17:01 [From Bactrim] trimethoprim [From Bactrim] Allergy Hives Verified 09/06/17 17:01 atenolol AdvReac Palpitation Verified 09/06/17 17:01 s All Systems: The remainder of the systems were reviewed and are negative Review of Systems: The balance of the systems review is negative. Physical Examination - Vital Signs Vital Signs: Initial Vital Signs Temp Pulse Resp BP Pulse Ox 97.4 F L 98 18 132/86 92 12/06/17 01:42 12/06/17 01:42 12/06/17 01:42 12/06/17 01:42 12/06/17 01:42 - Constitutional General appearance: comfortable - Neurologic Motor examination - right side: 4/5: biceps (Surgical scar present), triceps, 5/ 5: deltoids (Surgical scar present), acid purifier, hip flexors, tibialis Anterior, quadriceps, toe extension (EHL), plantarflexion Motor examination - left side: 5/5: deltoids, biceps, triceps, wrist flexion, wrist extension, hip flexors, acid purifier, quadriceps, tibialis Anterior, toe extension (EHL), plantarflexion Detailed sensory examination: other (Slight bit of hypoesthesia involving the right forearm. The left upper extremity sensation is normal and slight sensory gradient to light touch of the lower extremities distally.) Reflex and gait examination: other (Deep tendon reflexes are diminished throughout. No long track signs are identified.) Mental Status Examination: awake, alert, oriented to person, oriented to place, oriented to time, follows commands appropriately, answers questions appropriately, no agnosia, no aphasia, no aproxia Cranial nerve examination: PERRL, EOMI (There appears to be a right intranuclear ophthalmoplegia. With extreme left gaze, there is nystagmus toward the left of the left eye. The right side does not adduct. Diplopia is worse with left gaze), visual mclaughlin intact, corneal reflexes brisk symmetrically, sensory to face intact, mastication intact, no facial asymmetry is present, no dysarthria, hearing is intact symmetrically, soft palate elevates bilaterally upon phonation, tongue protrudes midline Cerebellar examination: no dysmetria, performs finger to nose and heel to mitchell symmetrically without ataxia Results - Laboratory Findings CBC and BMP: 12/06/17 02:05 12/06/17 02:05 Abnormal lab findings: Abnormal lab results PT 13.4 Seconds (9.4-12.1) H 12/06/17 02:05 APTT 50.1 Seconds (26.0-36.0) H 12/06/17 02:05 Consult Discharge Plan - Plan Referrals: Maggie Navarro MD [Primary Care Provider] -
[2017-12-06] MEDS ORDERED: Ibuprofen 600 MG TABLET PO ONE (15:52)
--- NOTE | 2017-12-06 18:25 | Event Note ---
Date of Encounter: 12/06/17 Time of Encounter: 18:25 Patient presented with blurry vision. History of heterozygous prothrombin mutation, factor V [place], hypertension, hyperlipidemia, diabetes, recent stroke. Patient was on Coumadin and aspirin until this August, when he was diagnosed with multifocal stroke including posterior jennifer, bilateral cerebral hemisphere, and the left internal capsule. Coumadin was changed to Pradaxa. Physical exam is significant for rotatory/vertical nystagmus, concerning for stroke at the brainstem. MRI ordered. Hematology/oncology consulted for anticoagulation choice this patient failed to types of anticoagulation regimen.
--- NOTE | 2017-12-07 08:34 | Neurology Progress Note ---
Date of Encounter: 12/07/17 Time of Encounter: 08:32 Assessment and Plan (1) Cerebrovascular accident Current Visit: No Status: Chronic I suspect that this patient has experienced further extension of the prior pontine infarct. His neurologic examination is not changed. I suspect a lesion in the right medial longitudinal fasciculus. The issue here is whether not there is anything further to offer from an anticoagulation perspective. His stroke risk factors otherwise seem to be well managed. MRI brain still pending. Hematology oncology evaluation still pending. Allow patient to decide for himself whether he wishes to be transferred to another facility to be evaluated by a stroke expert. From my perspective, I am not convinced this is necessary. Qualifiers: CVA mechanism: embolism Precerebral and cerebral artery: unspecified cerebral artery Qualified Code(s): I63.40 - Cerebral infarction due to embolism of unspecified cerebral artery Subjective Interval history: The chart was reviewed, the patient was seen and evaluated. He has had no change in his neurologic status overnight. No additional visual changes or weakness. He tends to keep his right eye closed. The diplopia remains. Apparently he has a brother who is a physician who suggested he be seen by a "stroke specialist". He has had several complete stroke workup is done at our facility including hypercoagulable workup. I will allow him to make this decision. However, not certain if there would be any additional benefit in this. MRI scan of the brain is still pending. 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 The left upper extremity sensation is normal and slight sensory gradient to light touch of the lower extremities distally.) Reflex and gait examination: other (Deep tendon reflexes are diminished throughout. No long track signs are identified.) Mental Status Examination: Present: awake, alert, oriented to person, oriented to place, oriented to time, follows commands appropriately, answers questions appropriately, no agnosia, no aphasia, no aproxia Cranial nerve examination: Present: PERRL, EOMI (There appears to be a right intranuclear ophthalmoplegia. With extreme left gaze, there is nystagmus toward the left of the left eye. The right side does not adduct. Diplopia is worse with left gaze), visual mclaughlin intact, corneal reflexes brisk symmetrically, sensory to face intact, mastication intact, no facial asymmetry is present, no dysarthria, hearing is intact symmetrically, soft palate elevates bilaterally upon phonation, tongue protrudes midline Cerebellar examination: Present: no dysmetria, performs finger to nose and heel to mitchell symmetrically without ataxia Results - Laboratory Findings CBC and BMP: 12/06/17 02:05 12/06/17 02:05 Abnormal lab findings: Abnormal lab results PT 13.4 Seconds (9.4-12.1) H 12/06/17 02:05 APTT 50.1 Seconds (26.0-36.0) H 12/06/17 02:05 POC Glucose 111 mg/dL (70-99) H 12/06/17 20:02 Consult Discharge Plan - Plan Referrals: Maggie Navarro MD [Primary Care Provider] - (Follow up has been requested )
--- NOTE | 2017-12-07 09:12 | Event Note ---
Date of Encounter: 12/07/17 Time of Encounter: 08:30 cc:"double vision" HPI: Mr. Harrison is a 51 Yo B m c/o double vision onset one a.m. on 12/06 after waking to use the bathroom. happened once before. current, constant, helps to keep one eye closed. Associated with mild headache that he suspects was cervicogenic in nature as these are chronic for him. He has been sleeping in a recliner secondary to shoulder surgery in July 2017. denies nausea, vomiting, chest pain, palpitations or shortness of breath. admits unsteadiness out of the norm and some weakness. admits having trouble focusing with vision secondary to double vision. PMH: stroke; diabetes; asthma; HTN; hypothyroidism; he claims records here are up to date with other issues PSH: R shoulder surgery in July. one week following this he had a blood clot removed from R arm. Meds: He claims our records here are reliable Allergies bactrim - dark blotchyness on tongue and skin; atenolol - heart rate and rythm irregularities SH tobacco as a kid total of 2-4 years; few drinks of liquor every few weeks; weed once every 3 days usually in edibles FH mother: of multiple sclerosis; prothrombin gene mutation father: diabetes brother: prothrombin gene mutation, stroke sister: some sort of inflammatory bowel disease most likely OBJECTIVE PE general: middle aged m no acute distress heart: tachycardic. no murmurs gallops or rubs. mitral post not heard secondary to fatty tissue obstruction. no carotid bruits. 2+ dorsalis pedis and radial. lungs: CTA throughout abd: no aortic or renal bruits auscultated neuro: CN 2-12 intact. strength 5/5 upper and lower extremities save some R upper and lower Ext weakness secondary to reported history of shoulder surgery and hip weakness. 4+/5 in these areas. hip extension strength could not be assessed due to instability. upper and lower Ext sensation intact. brachioradialis reflex 2/4. gait unsteady. 1. CVA prothrombin gene mutation causing hypercoagulability double vision 2. orbital myositis 3.ophthalmoplegic migraine [facility]
[2017-12-07] MEDS: Valsartan 160 MG TABLET PO SCH (10:26)
[2017-12-07] MEDS: Aspirin 81 MG TAB.CHEW PO SCH (10:26)
[2017-12-07] MEDS: *HR* Dabigatran 150 MG CAPSULE PO SCH ×2 (10:26→19:43)
[2017-12-07] MEDS: hydroCHLOROthiazide 25 MG TABLET PO SCH (10:26)
[2017-12-07] MEDS: Insulin LISPRO 300 UNITS/3 ML VIAL SQ SCH ×3 (10:26→17:25)
--- NOTE | 2017-12-07 11:59 | Internal Med Progress Note ---
<Mai Vasquez N - Last Filed: 12/07/17 16:20> Date of Encounter: 12/07/17 Time of Encounter: 11:59 - Assessment and plan (1) TIA (transient ischemic attack) Current Visit: No Status: Suspected Assessment and plan: Patient is currently anticoagulated on pradaxa 150mg BID and aspirin. He is also taking simvastatin. He has had episodes like this in the past. Patient does not want to pursue further stroke workup at this time. 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 Hematology/oncology consulted for further management of this problem. (3) Essential hypertension Current Visit: No Status: Chronic Assessment and plan: Patient is taking valsartan 320mg daily and hydrochlorothiazide 25mg. Plan to continue home medications. (4) Diabetes mellitus, type 2 Current Visit: No Status: Chronic Assessment and plan: Accuchecks and low-dose sliding scale insulin. Qualifiers: Diabetes mellitus jail insulin use: without jail use Diabetes mellitus complication status: with neurologic complications Diabetes mellitus complication detail: with other neurological complication Qualified Code(s): E11.49 - Type 2 diabetes mellitus with other diabetic neurological complication (5) Hypothyroid Current Visit: No Status: Chronic Assessment and plan: Levothyroxine 137mcg daily. Qualifiers: Hypothyroidism type: acquired Qualified Code(s): E03.9 - Hypothyroidism, unspecified (6) Visual symptoms Current Visit: No Status: Acute Assessment and plan: Patient reports visual symptoms associated with TIAs in the past. He reports improvement in visual symptoms with covering of his right eye. Heme/onc hadded aggrenox to his anticoagulant regiment today, with plans to reassess symptoms tomorrow morning. - Time Spent With Patient Total time spent is greater than 50% in coordination of care (as documented) at patient's floor/unit and/or counseling patient: - Constitutional Vitals: Temp Pulse Resp BP Pulse Ox 98.6 F 87 16 116/79 94 12/07/17 03:19 12/07/17 03:19 12/07/17 03:19 12/07/17 03:19 12/07/17 03:19 General appearance: Present: cooperative, mild distress, A&O X 3, pleasant Internal Medicine: Result - Labs CBC & Chem 7: 12/06/17 02:05 12/06/17 02:05 - ABG Interpretation ABG results: PT/INR, D-dimer PT 13.4 Seconds (9.4-12.1) H 12/06/17 02:05 Consult Discharge Plan - Plan Referrals: Maggie Navarro MD [Primary Care Provider] - (Follow up has been requested ) <Sandy Peres - Last Filed: 12/07/17 16:46> Date of Encounter: 12/07/17 - Assessment and plan (1) TIA (transient ischemic attack) Current Visit: No Status: Suspected Qualifiers: Transient cerebral ischemia type: other Qualified Code(s): G45.8 - Other transient cerebral ischemic attacks and related syndromes (2) Essential hypertension Current Visit: No Status: Chronic (3) Diabetes mellitus, type 2 Current Visit: No Status: Chronic Qualifiers: Diabetes mellitus jail insulin use: without jail use Diabetes mellitus complication status: with neurologic complications Diabetes mellitus complication detail: with other neurological complication Qualified Code(s): E11.49 - Type 2 diabetes mellitus with other diabetic neurological complication (4) Heterozygous for prothrombin [id number] mutation Current Visit: No Status: Chronic (5) Hypothyroid Current Visit: No Status: Chronic Qualifiers: Hypothyroidism type: acquired Qualified Code(s): E03.9 - Hypothyroidism, unspecified (6) Visual symptoms Current Visit: No Status: Acute - Time Spent With Patient Total time spent is greater than 50% in coordination of care (as documented) at patient's floor/unit and/or counseling patient: - Constitutional Vitals: Temp Pulse Resp BP Pulse Ox 98.0 F 93 18 114/81 93 12/07/17 12:03 12/07/17 12:03 12/07/17 12:03 12/07/17 12:03 12/07/17 12:03 Internal Medicine: Result - Labs CBC & Chem 7: 12/06/17 02:05 12/06/17 02:05 - ABG Interpretation ABG results: PT/INR, D-dimer PT 13.4 Seconds (9.4-12.1) H 12/06/17 02:05 - Attending Attestation I examined this patient and my medical decision-making was reviewed with the Resident Physician Dr. Vasquez. I agree with the documented findings, disposition and treatment plan as described except to the extent set forth below. Mr. Harrison is a 51 year old male with known history of asthma, diabetes, hyperlipidemia, hypertension, thyroid disease and multiple strokes who is heterozygous for prothrombin [id number] mutation on Paradaxa for anti coagulation pt presented to the ER with blurry vision and dizziness. In the ER head CT showed evidence of remote microvascular ischemic changes and multifocal remote infarcts of the frontal lobes but no acute intracranial hemorrhage or global mass effect. His MRI showed new infracts within left centrum semiovale, left aspect of corpus callosum and Rt periventricular area. Pt is still c/o double vision and blurry vision. Denied any CP SOB Gen: A, A< O x3 Chest: Diminished BS b/l Heart: S1S2+ RRR No murmurs Neuro : Double vision. No weakness in extremeties a/p 1. Acute CVA 2. Heterozygous prothrombin [id number] mutation He is already on ASA and Pradaxa but still developed new strokes May get benefit with DAP + Pradaxa Talked to Heme Onc who recommend to add Aggrenox to ASA and continue Pradaxa cont statin PT / OT eval Pt do not wanted to go to [facility] for 2nd opinion Will switch him to full admission since he needs to stay in the hospital more than 2 night and required close monitoring and higher level of care for his acute CVA
--- NOTE | 2017-12-07 13:04 | Oncology Inp Consult Note ---
<Brigette Lazar - Last Filed: 12/07/17 15:39> Date of Encounter: 12/07/17 Time of Encounter: 13:04 Assessment and Plan (1) Cerebrovascular accident Status: Chronic Assessment and plan: MRI Brain reveals New small area of infarcts within left centrum semiovale, left aspect of the posterior corpus callosum, and right periventricular white matter. No new susceptibility signal is identified to suggest associated intracranial hemorrhages. At this time, recommend continuing Pradaxa and ASA 81 mg with the addition of Aggrenox. We are hopeful that with the addition of Aggrenox he will receive maximum benefit of the direct thrombin inhibition from his Pradaxa. In future, if this treatment approach fails, may consider changing Pradaxa to Eliquis or Arixtra as next line choice. Neurology note reviewed, no further diagnostic workup to be pursued at this juncture given his prior extensive workup Qualifiers: CVA mechanism: embolism Precerebral and cerebral artery: unspecified cerebral artery Qualified Code(s): I63.40 - Cerebral infarction due to embolism of unspecified cerebral artery (2) Heterozygous for prothrombin [id number] mutation Status: Chronic Assessment and plan: Prothrombin gene mutation is typically considered to show only slight correlation with arterial thrombosis, however, the combination with other risk factors likely contribute to this patients increased risk for recurrent CVA. He does have a strong family history for arterial and venous thrombotic events. No personal history of DVT/PE. Management and recommendations as above. Please refer to Dr. Martínez's attestation below for additional details. - Data of Consult Requesting Physician: Sandy Peres MD Primary Care Provider: Maggie Navarro MD - Consult Narrative Reason for consult: Heterozygous for prothrombin [id number] mutation, Multiple CVA History of present illness: Mr. Harrison is a 51 year old male with past medical history of multiple strokes, and is heterozygous for prothrombin [id number] mutation. He presented to the ER with blurry vision and dizziness that began the night of admission. He denied any other symptoms including weakness, slurred speech, chest and abdominal pain. He has a baseline of right sided weakness from previous strokes. During prior admission in August he was found to have a cerebrovascular accident in his brain MRI showed multiple punctate foci of acute infarction in the supra brain parenchyma bilaterally as well as posterior midline jennifer which was compatible with thromboembolic phenomenon from a central source. Hematology was consulted and his coumadin was stopped, therapy with Pradaxa and ASA was initiated. He states that his visual disturbances resolved about 2 days following his discharge home in August. He has faithfully been taking his Pradaxa since this time. In the ER head CT showed evidence of remote microvascular ischemic changes and multifocal remote infarcts of the frontal lobes but no acute intracranial hemorrhage or global mass effect. MRI brain reveals "1. New small area of infarcts within left centrum semiovale, left aspect of the posterior corpus callosum, and right periventricular white matter. No new susceptibility signal is identified to suggest associated intracranial hemorrhages. 2. Unchanged few foci of susceptibility signal, as detailed above, when compared to 09/07/2017. 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 3. Chronic small vessel ischemic white matter disease and diffuse cerebral volume loss. Chronic bilateral lacunar infarcts." Family history positive for prothrombin gene mutation, patient believes received from his maternal side as there is a long history of premature and thrombotic complications in this side of the family, strong family history for CVA, he also states his brother and his daughter are also heterozygous for prothrombin [id number] mutation. His brother has h/o CVA. He was tested for prothrombin gene mutation by his PCP secondary to family history, he has not followed a municipal clerk on an outpatient basis. He has no history of DVT/PE, he reports history of upper extremity DVT in July following orthopedic shoulder surgery, however, review of record shows impeding compartment syndrome requiring irrigation debridement and evacuation of hematoma right upper arm. Past Med Surg Social Fam HX - Past Medical History Medical history: asthma, CVA, diabetes, hyperlipidemia, hypertension, thyroid disease, TIA, other Additional medical history: factor 5 leiden deficiency Psychiatric history: depression - Past Surgical History Surgical History: herniorrhaphy, orthopedic, other, other Additional surgical history: left inguinal hernia repair. L ankle - Social History Smoking Status: Never smoker Smokeless Tobacco Status: No Alcohol use: rarely Drug use: none - Family History Mother Living Status: Hx Family Cardiac Disorders: Yes Hx Family Respiratory Disorders: No Hx Family Cancer: Yes Hx Family GI Disorders: No Hx Family Endocrine Disorder: Yes Hx Family Neuromuscular Disorders: Yes Hx Family Neurologic Disorders: Yes Hx Family HEENT Disorders: No Hx Family Autoimmune Disorders: No Brother Hx Family Endocrine Disorder: Yes (carrier of prothombin gene mutation) Medications and Allergies Albuterol Neb [Proventil Neb] 2.5 mg IH TID PRN 11/16/16 [History] Albuterol Sulfate [Albuterol Inhaler] 2 puff IH Q4H PRN 11/16/16 [History] BuPROPion XL (24 HR) [Wellbutrin Xl] 150 mg PO DAILY 11/16/16 [History] Cetirizine HCl [Zyrtec] 10 mg PO DAILY 11/16/16 [History] Diltiazem HCl [Diltiazem 24Hr Cd] 240 mg PO DAILY 11/16/16 [History] Fluticasone Propionate Nasal [Flonase] 100 mcg NS DAILY 11/16/16 [History] Fluticasone/Salmeterol [Advair 100-50 Diskus] 2 puff IH DAILY 11/16/16 [History] Glimepiride [Amaryl] 4 mg PO BID 11/16/16 [History] Levothyroxine Sodium [Synthroid] 137 mcg PO QAM 11/16/16 [History] Multivitamin [Multi-Day Vitamins] 1 tab PO DAILY 11/16/16 [History] [place]-3/Dha/Epa/Fish Oil [Fish Oil 1,000 mg Softgel] 1,000 mg PO DAILY 11/16/16 [History] Simvastatin [Zocor] 20 mg PO HS 11/16/16 [History] Tramadol HCl [Ultram] 100 mg PO Q4H PRN 11/16/16 [History] Ubidecarenone [Co Q-10] 100 mg PO DAILY 11/16/16 [History] Linagliptin/Metformin HCl [Jentadueto 2.5 mg-1000 mg Tab] 1 each PO BIDWM [History] Allopurinol [Zyloprim 300 MG] 300 mg PO DAILY 07/27/17 [History] Montelukast [Singulair] 10 mg PO HS 07/27/17 [History] Valsartan/Hydrochlorothiazide [Diovan Hct 320-25 mg Tablet] 1 tab PO DAILY 09/06 [History] Aspirin 81 mg PO DAILY #30 tab.chew 09/09/17 [Rx] Dabigatran [Pradaxa] 150 mg PO BID #60 capsule 09/09/17 [Rx] Aspirin/Dipyridamole 25/200 MG [Aggrenox 25mg-200mg] 1 cap PO BID #60 capsule [Rx] OxyCODONE/APAP 5/325 [Percocet 5/325 MG] 1 each PO Q6HR PRN 3 Days #12 tablet [Rx] 3 Allergy/AdvReac Type Severity Reaction Status Date / Time sulfamethoxazole Allergy Hives Verified 09/06/17 17:01 [From Bactrim] trimethoprim [From Bactrim] Allergy Hives Verified 09/06/17 17:01 atenolol AdvReac Palpitation Verified 09/06/17 17:01 s Constitutional: Absent: anorexia, chills, fatigue, fever(s), weight loss Eyes: Present: as per HPI, blurry vision, diplopia Nose, mouth and throat: Absent: dysphagia Cardiovascular: Absent: chest pain Respiratory: Absent: cough, dyspnea Gastrointestinal: Present: nausea. Absent: abdominal pain, vomiting Additional comments: denies dysuria Integumentary: Absent: wounds Neurological: Present: as per HPI, disequilibrium, dizziness Hematologic/Lymphatic: Present: as per HPI Oncology - Exam - Constitutional Vitals: Temp Pulse Resp BP Pulse Ox 98.0 F 93 18 114/81 93 12/07/17 12:03 12/07/17 12:03 12/07/17 12:03 12/07/17 12:03 12/07/17 12:03 General appearance: cooperative, no acute distress, no febrile Exam: appears uncomfortable secondary to diploplia/blurry vision - Head Head exam: Present: atraumatic - Eye Eye exam: Present: nystagmus, PERRL - ENT ENT exam: Present: mucous membranes moist - Respiratory Respiratory exam: Present: CTAB. Absent: respiratory distress - Cardiovascular Cardiovascular exam: Present: RRR, +S1, +S2 - GI/Abdominal GI/Abdominal exam: Present: normal bowel sounds, soft. Absent: guarding, rebound, tenderness - Extremities Exam Extremities exam: Present: normal inspection. Absent: calf tenderness - Neurological Exam Neurological exam: Present: alert, oriented X3, strengths equal and symetr throughout. Absent: facial droop, speech deficit Additional comments: chronic right sided weakness 4/5, left side 5/5 - Psychiatric Psychiatric exam: Present: normal affect, normal mood - Skin Skin exam: Present: dry, intact, normal color, warm Consult Discharge Plan - Plan Instructions: Vertigo (GEN), Diabetes Mellitus Type 2 in Adults (DC), Peripheral Vascular Disorders (DC), Chronic Hypertension (DC) Referrals: Maggie Navarro MD [Primary Care Provider] - (Follow up has been requested , our offices will call you with an appointment time and date. ) Deng Cardenas MD [Partnered Physician] - (Your appointment has been requested. Our offices will call you with an appointment time and date) Prescriptions: Aspirin/Dipyridamole 25/200 MG [Aggrenox 25mg-200mg] 1 cap PO BID #60 capsule OxyCODONE/APAP 5/325 [Percocet 5/325 MG] 1 each PO Q6HR PRN 3 Days #12 tablet PRN Reason: Pain <Mikey Martínez - Last Filed: 12/09/17 13:50> Date of Encounter: 12/07/17 - Data of Consult Requesting Physician: Sandy Peres MD Primary Care Provider: Maggie Navarro MD - Consult Narrative History of present illness: Mr. Harrison is a 51 year old male Oncology - Exam - Constitutional Vitals: Temp Pulse Resp BP Pulse Ox 98.0 F 94 15 130/82 93 12/08/17 11:30 12/08/17 11:30 12/08/17 11:30 12/08/17 11:30 12/08/17 11:30 Oncology - Results Labs: 3 12/08/17 12/08/17 12/07/17 11:27 09:02 20:50 POC Glucose 128 H 153 H 127 H 3 12/07/17 12/07/17 16:21 12:02 POC Glucose 99 115 H - Attending Attestation seen and erxamined patient and agree with assessment and plan. Patient has had another stroke while on dabigatran and aspirin. Plavix has been shown to have questionable efficay for lacunar strokes. Therefore, will plan on adding aggrenox meanwhile.
--- NOTE | 2017-12-07 18:35 | Electrocardiograph Report ---
[place] [id number] Test Date: 2017-12-06 Pat Name: Esteban Harrison Department: 104 Room: 3B43 Gender: M Paleologist: : 1965 Requested By: Javy Berry Order Number: [id number] Reading MD: Tristan Gar Measurements Intervals [place] Rate: 94 P: 29 [place]: 155 QRS: -37 QRSD: 110 T: 31 QT: 345 QTc: 397 Interpretive Statements SINUS RHYTHM MARKED LEFT AXIS DEVIATION Electronically Signed On 12-07-2017 18:33:36 EDT by Tristan Gar
[2017-12-07] MEDS ORDERED: Ibuprofen 600 MG TABLET PO ONE (19:22)
[2017-12-07] MEDS: Budesonide/Formoterol 80/4.5 MDI IH SCH (20:12)
[2017-12-07] MEDS ORDERED: Fluticasone Propionate Nasal 50 MCG/SPRAY BOTTLE NS SCH (22:00)
--- NOTE | 2017-12-08 07:34 | Neurology Progress Note ---
Date of Encounter: 12/08/17 Time of Encounter: 07:31 Assessment and Plan (1) Cerebrovascular accident Current Visit: No Status: Chronic At this point all of his acute deficits have resolved. The intranuclear ophthalmoplegia has resolved. Although the MRI did not reveal an acute brainstem infarct this lesion specifically localizes to the midbrain or jennifer. The MRI does show significant chronic ischemic change in the jennifer. The MRI also revealed several scattered acute microinfarcts. Unfortunately Mr. Harrison likely has extensive small vessel disease due to his risk factors of hypertension, diabetes, hyperlipidemia, anxiety and his obesity. Sleep apnea is now also known to be a risk for stroke. Superimposed on these risk factors is his genetically inherited coagulopathy. I am hopeful that he will be able to tolerate the Aggrenox and that the headaches will diminish with time. Otherwise I would encourage him to remain aggressive with risk factor management and follow-ups with his primary care provider to monitor his risk factors. From a neurologic perspective my workup is complete. I will reevaluate him at your request. He has declined transfer to be evaluated by a strokeologist Qualifiers: CVA mechanism: embolism Precerebral and cerebral artery: unspecified cerebral artery Qualified Code(s): I63.40 - Cerebral infarction due to embolism of unspecified cerebral artery Subjective Interval history: The chart was reviewed, the patient was seen and examined. He feels better today. States his diplopia has resolved. He is no longer wearing the patch. The MRI scan of the brain yesterday did reveal several scattered deep white matter hyperintensities consistent with small vessel infarcts. It also revealed significant ischemic change in the jennifer. He does however report headache since starting the Aggrenox. This is noted to be a fairly common side effect with this medication. Otherwise he has no other complaints. He also sees Dr. Cardenas for sleep apnea, he is not had his sleep apnea apparatus on since admission. Objective - Constitutional Vitals: Temp Pulse Resp BP Pulse Ox 97.6 F 91 18 112/79 93 12/08/17 04:36 12/08/17 04:36 12/08/17 04:36 12/08/17 04:36 12/08/17 04:36 - Neurological Exam Motor examination - right side: 4/5: deltoids, biceps, 5/5: triceps, gag writer, hip flexors, tibialis Anterior, quadriceps, toe extension (EHL), plantarflexion Motor examination - left side: 09/26: deltoids, biceps, triceps, wrist flexion, wrist extension, hip flexors, gag writer, quadriceps, tibialis Anterior, toe extension (EHL), plantarflexion Sensation intact: Present: other (Slight bit of hypoesthesia involving the right forearm. The left upper extremity sensation is normal and slight sensory gradient to light touch of the lower extremities distally.) Reflex and gait examination: other (Deep tendon reflexes are diminished throughout. No long track signs are identified.) Mental Status Examination: Present: awake, alert, oriented to person, oriented to place, oriented to time, follows commands appropriately, answers questions appropriately, no agnosia, no aphasia, no aproxia Cranial nerve examination: Present: PERRL, EOMI (The intranuclear ophthalmoplegia has now resolved. He has full range of ocular mobility bilaterally.), visual mclaughlin intact, corneal reflexes brisk symmetrically, sensory to face intact, mastication intact, no facial asymmetry is present, no dysarthria, hearing is intact symmetrically, soft palate elevates bilaterally upon phonation, tongue protrudes midline Cerebellar examination: Present: no dysmetria, performs finger to nose and heel to mitchell symmetrically without ataxia Results - Laboratory Findings CBC and BMP: 12/06/17 02:05 12/06/17 02:05 Abnormal lab findings: Abnormal lab results PT 13.4 Seconds (9.4-12.1) H 12/06/17 02:05 APTT 50.1 Seconds (26.0-36.0) H 12/06/17 02:05 Consult Discharge Plan - Plan Referrals: Maggie Navarro MD [Primary Care Provider] - (Follow up has been requested )
[2017-12-08] MEDS: Budesonide/Formoterol 80/4.5 MDI IH SCH (07:43)
[2017-12-08] MEDS: Insulin LISPRO 300 UNITS/3 ML VIAL SQ SCH ×2 (09:03→11:51)
[2017-12-08] MEDS: *HR* Dabigatran 150 MG CAPSULE PO SCH (09:04)
[2017-12-08] MEDS: Aspirin 81 MG TAB.CHEW PO SCH (09:04)
[2017-12-08] MEDS: hydroCHLOROthiazide 25 MG TABLET PO SCH (09:04)
[2017-12-08] MEDS: Valsartan 160 MG TABLET PO SCH (09:04)
[2017-12-08] MEDS ORDERED: Acetaminophen 325 MG TABLET PO PRN (09:10)
--- NOTE | 2017-12-08 10:29 | Oncology Inp Progress Note ---
<Brigette Lazar L - Last Filed: 12/08/17 10:27> Date of Encounter: 12/08/17 Time of Encounter: 09:30 (1) Cerebrovascular accident Status: Chronic Assessment and plan: MRI Brain reveals New small area of infarcts within left centrum semiovale, left aspect of the posterior corpus callosum, and right periventricular white matter. No new susceptibility signal is identified to suggest associated intracranial hemorrhages. He also has chronic small vessel ischemic white matter disease and diffuse cerebral volume loss. Chronic bilateral lacunar infarcts. He continues Pradaxa and ASA 81 mg with the new addition of Aggrenox which was started last evening. Today upon assessment he reports that his dizziness and visual changes have completely resolved and he is back at baseline. He is not requiring his eye patch. He now reports a headache which is a common side effect associated with Aggrenox and should subside over time as he continues to take the medication. Encouraged continued control of his risk factors associated with increased risk for CVA including HTN, diabetes, obesity, hyperlipidemia and sleep apnea. We are hopeful that with the addition of Aggrenox he will receive maximum benefit of the direct thrombin inhibition from his Pradaxa. In future, if this treatment approach fails, may consider changing Pradaxa to Eliquis or Arixtra as next line choice. He will continue to follow up with his PCP for continued medical management. He is planned for discharge home today per primary team, at this time, hematology will otherwise sign off. 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 He does have a strong family history for arterial and venous thrombotic events. No personal history of DVT/PE. Management and recommendations as above. Please refer to Dr. Martínez's attestation below for additional details. Oncology: Subj Interval history: Mr. Harrison is sitting on the side of the bed. Appears much more comfortable than previous assessment, reports that his blurry vision and diploplia have completely resolved, however, he now complains of a headache. He has just received tylenol about 15 minutes ago. Discussed that H/A is a common side effect of Aggrenox and should clear over time. He denies s/s bleeding. He denies any new neurological symptoms. - Constitutional Vitals: Vital Signs Temp Pulse Resp BP Pulse Ox 12/08/17 08:00 98.0 F 93 14 121/83 92 12/08/17 07:46 18 96 12/08/17 04:36 97.6 F 91 18 112/79 93 12/07/17 20:13 18 93 12/07/17 19:07 99.1 F 95 17 122/80 93 12/07/17 16:37 98.1 F 84 17 119/82 93 12/07/17 12:03 98.0 F 93 18 114/81 93 Intake and Output 12/07/17 12/08/17 12/08/17 23:59 07:59 15:59 Intake Total 600 / 600 0 / 0 240 / 240 Output Total 225 / 225 300 / 300 Balance 375 / 375 -300 / -300 240 / 240 Intake: Oral 600 / 600 0 / 0 240 / 240 Output: Urine 225 / 225 300 / 300 Other: Meal Breakfast Percent of Meal Consumed 100% Blood Glucose* 127 153 General appearance: cooperative, no acute distress, no febrile - Head Head exam: Present: atraumatic - ENT ENT exam: Present: mucous membranes moist - Respiratory Respiratory exam: Present: CTAB. Absent: respiratory distress - Cardiovascular Cardiovascular exam: Present: RRR, +S1, +S2 - GI/Abdominal GI/Abdominal exam: Present: normal bowel sounds, soft. Absent: guarding, rebound, tenderness - Extremities Exam Extremities exam: Present: normal inspection. Absent: calf tenderness Additional comments: mild chronic RUE weakness 4/5, left UE 5/5 - Neurological Exam Neurological exam: Present: alert, oriented X3, strengths equal and symetr throughout. Absent: facial droop, speech deficit - Psychiatric Psychiatric exam: Present: normal affect, normal mood - Skin Skin exam: Present: dry, intact, normal color, warm Oncology: Obj Data - Labs CBC & Chem 7: 12/06/17 02:05 12/06/17 02:05 Labs: Laboratory Results - last 24 hr 12/07/17 12/07/17 12:02 16:21 POC Glucose 115 H 99 - ABG Interpretation ABG results: PT/INR, D-dimer PT 13.4 Seconds (9.4-12.1) H 12/06/17 02:05 Consult Discharge Plan - Plan Instructions: Vertigo (GEN), Diabetes Mellitus Type 2 in Adults (DC), Peripheral Vascular Disorders (DC), Chronic Hypertension (DC) Referrals: Maggie Navarro MD [Primary Care Provider] - (Follow up has been requested , our offices will call you with an appointment time and date. ) Deng Cardenas MD [Partnered Physician] - (Your appointment has been requested. Our offices will call you with an appointment time and date) Prescriptions: Aspirin/Dipyridamole 25/200 MG [Aggrenox 25mg-200mg] 1 cap PO BID #60 capsule OxyCODONE/APAP 5/325 [Percocet 5/325 MG] 1 each PO Q6HR PRN 3 Days #12 tablet PRN Reason: Pain <Mikey Martínez - Last Filed: 12/09/17 13:55> Date of Encounter: 12/08/17 (1) Cerebrovascular accident Status: Chronic Qualifiers: CVA mechanism: embolism Precerebral and cerebral artery: unspecified cerebral artery Qualified Code(s): I63.40 - Cerebral infarction due to embolism of unspecified cerebral artery (2) Diplopia Status: Acute Assessment and plan: Seen and examined patient and agree with assessment and plan. Resolved as of this morning. Patient is having FONTENOT from the aggrenox. We reassured him that over time that does dissipate as a side effect. It is reassuring to know that the visual disturbance has improved so quickly. Therefore, will continue the dabigatran, aggrenox, and aspirin at this time for secondary stroke prophytlaxis. Oncology: Obj Data - Labs CBC & Chem 7: 12/06/17 02:05 12/06/17 02:05 Labs: Laboratory Results - last 24 hr 12/07/17 12/08/17 12/08/17 20:50 09:02 11:27 POC Glucose 127 H 153 H 128 H - ABG Interpretation ABG results: PT/INR, D-dimer PT 13.4 Seconds (9.4-12.1) H 12/06/17 02:05
[2017-12-08] MEDS ORDERED: *HR* OxyCODONE Immed Rel 5 MG TABLET PO PRN (10:54)
[2017-12-08] MEDS ORDERED: *HR* HYDROcodone/Acet 5/325 mg TABLET PO PRN (10:54)
[2017-12-08 11:31] VITALS: BP 130/82
--- NOTE | 2017-12-08 14:50 | Discharge Summary ---
- NOTES TO OUTPATIENT PROVIDER Notes to Outpatient Provider: Patient initiated on Aggrenox per hematology- monitoring for headaches. According to neurology-MRI shows several scattered acute microinfarcts and extensive small vessel disease continue with risk reduction. Encourage for outpatient sleep apnea workup-continue with aspirin per day maximum Aggrenox and statin Date of Encounter: 12/08/17 Time of Encounter: 14:50 - Discharge Diagnosis (1) TIA (transient ischemic attack) Priority: Primary Status: Suspected Qualifiers: Transient cerebral ischemia type: other Qualified Code(s): G45.8 - Other transient cerebral ischemic attacks and related syndromes (2) Essential hypertension Priority: Secondary Status: Chronic (3) Diabetes mellitus, type 2 Priority: Secondary Status: Chronic Qualifiers: Diabetes mellitus internet ecommerce specialist insulin use: without halfway use Diabetes mellitus complication status: with neurologic complications Diabetes mellitus complication detail: with other neurological complication Qualified Code(s): E11.49 - Type 2 diabetes mellitus with other diabetic neurological complication (4) Heterozygous for prothrombin [id number] mutation Priority: Secondary Status: Chronic (5) Hypothyroid Priority: Secondary Status: Chronic Qualifiers: Hypothyroidism type: acquired Qualified Code(s): E03.9 - Hypothyroidism, unspecified (6) Visual symptoms Priority: Secondary Status: Acute Hospital course: Mr. Harrison is a 51 year old male past medical history of multiple strokes and is heterozygous for prothrombin [id number] mutation. He presented to the ER with blurry vision and dizziness that began the night of admission. He denied any other symptoms including weakness slurred speech chest and abdominal pain. He does have baseline right-sided weakness from previous strokes. He had a previous admission in August was found to have a CVA in his brain which showed multiple punctate foci of acute infarction in the super brain parenchyma bilaterally as well as posterior midline jennifer which was compatible with thromboembolic phenomenon from central source. Hematology was consulted and his Coumadin was stopped and he was initiated on Lovenox and aspirin. He has been compliant with taking Ranexa since this time. In the ER head CT did show evidence of remote microvascular ischemic changes and multifocal remote infarcts of the frontal lobe but no acute intracranial hemorrhage or global mass effect. MRI was completed which did reveal "a new small area of infarct of the leftcentrum semiovale, left aspect of the posterior corpus callosum, and right periventricular white matter. No new susceptibility signal is identified to suggest associated intracranial hemorrhages. 2. Unchanged few foci of susceptibility signal, as detailed above, when compared to 09/07/2017. 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 3. Chronic small vessel ischemic white matter disease and diffuse cerebral volume loss. Chronic bilateral lacunar infarcts." He does have a strong family history of CVA and is heterozygous for prothrombin [id number] mutation. He was seen by oncology who recommended Aggrenox. He was also seen by neurology who recommends reducing risk factors -sleep study for sleep apnea as outpatient, continue with aspirin Pradaxa, Aggrenox and statin.-Patient symptoms have improved since the initiation of Aggrenox. However he does have a headache which is a side effect and was advised that this would improve over time. I did give patient some pain medication which did relieve his headache. Advised patient to follow-up with hematology as well as neurology as outpatient. Patient verbalized understanding. I did give patient 3 days prescription of Percocet 5/325 mg every 6 hours for breakthrough pain as well as 30 day supply of Aggrenox. Headache has improved Patient is hematologically stable and is ready for discharge at this time. Discharge discussed with: patient - Time Spent with Patient Total time spent providing and/or coordinating discharge services: - Discharge Medications Prescriptions: OxyCODONE/APAP 5/325 [Percocet 5/325 MG] 1 each PO Q6HR PRN 3 Days #12 tablet PRN Reason: Pain Aspirin/Dipyridamole 25/200 MG [Aggrenox 25mg-200mg] 1 cap PO BID #60 capsule Home Medications: Albuterol Neb [Proventil Neb] 2.5 mg IH TID PRN 11/16/16 [History] Albuterol Sulfate [Albuterol Inhaler] 2 puff IH Q4H PRN 11/16/16 [History] BuPROPion XL (24 HR) [Wellbutrin Xl] 150 mg PO DAILY 11/16/16 [History] Cetirizine HCl [Zyrtec] 10 mg PO DAILY 11/16/16 [History] Diltiazem HCl [Diltiazem 24Hr Cd] 240 mg PO DAILY 11/16/16 [History] Fluticasone Propionate Nasal [Flonase] 100 mcg NS DAILY 11/16/16 [History] Fluticasone/Salmeterol [Advair 100-50 Diskus] 2 puff IH DAILY 11/16/16 [History] Glimepiride [Amaryl] 4 mg PO BID 11/16/16 [History] Levothyroxine Sodium [Synthroid] 137 mcg PO QAM 11/16/16 [History] Multivitamin [Multi-Day Vitamins] 1 tab PO DAILY 11/16/16 [History] [place]-3/Dha/Epa/Fish Oil [Fish Oil 1,000 mg Softgel] 1,000 mg PO DAILY 11/16/16 [History] Simvastatin [Zocor] 20 mg PO HS 11/16/16 [History] Tramadol HCl [Ultram] 100 mg PO Q4H PRN 11/16/16 [History] Ubidecarenone [Co Q-10] 100 mg PO DAILY 11/16/16 [History] Linagliptin/Metformin HCl [Jentadueto 2.5 mg-1000 mg Tab] 1 each PO BIDWM [History] Allopurinol [Zyloprim 300 MG] 300 mg PO DAILY 07/27/17 [History] Montelukast [Singulair] 10 mg PO HS 07/27/17 [History] Valsartan/Hydrochlorothiazide [Diovan Hct 320-25 mg Tablet] 1 tab PO DAILY 09/06 [History] Aspirin 81 mg PO DAILY #30 tab.chew 09/09/17 [Rx] Dabigatran [Pradaxa] 150 mg PO BID #60 capsule 09/09/17 [Rx] Aspirin/Dipyridamole 25/200 MG [Aggrenox 25mg-200mg] 1 cap PO BID #60 capsule [Rx] OxyCODONE/APAP 5/325 [Percocet 5/325 MG] 1 each PO Q6HR PRN 3 Days #12 tablet [Rx] Allergies/Adverse Reactions: 3 Allergy/AdvReac Type Severity Reaction Status Date / Time sulfamethoxazole Allergy Hives Verified 09/06/17 17:01 [From Bactrim] trimethoprim [From Bactrim] Allergy Hives Verified 09/06/17 17:01 atenolol AdvReac Palpitation Verified 09/06/17 17:01 s Date of admission: 12/07/17 09:12 Primary care physician: Maggie Navarro MD Consults: 12/07/17 13:20 Consult to Physical Therapy [CONS] Routine Comment: Evaluate, develop and implement POC Reason for Consult: Ambulatory unsteadiness Does patient have active BEDREST order?: No Is patient medically & hemodynamically stable?: Yes 12/07/17 13:21 Consult to Occupational Therapy [CONS] Routine Comment: Evaluate, develop and implement POC Reason for Consult: Ambulatory difficulties Does patient have active BEDREST order?: No Is patient medically & hemodynamically stable?: Yes Discharging clinician: Krupa Monzon Anticipated date of discharge: 12/08/17 - Constitutional Vitals: Temp Pulse Resp BP Pulse Ox 98.0 F 94 15 130/82 93 12/08/17 11:30 12/08/17 11:30 12/08/17 11:30 12/08/17 11:30 12/08/17 11:30 General appearance: Present: cooperative, mild distress, A&O X 3, pleasant - Head Head exam: Present: atraumatic, normocephalic - Eye Eye exam: Present: PERRL, conjuntiva pink, sclera anicteric Pupils: Present: PERRL - Neck Neck exam general surgery: Present: supple, trachea midline. Absent: lymphadenopathy - Respiratory Respiratory exam: Present: CTAB. Absent: accessory muscle use, rales, rhonchi, wheezes - Cardiovascular Cardiovascular exam: Present: RRR, +S1, +S2. Absent: diastolic murmur, gallop, rubs, systolic murmur - GI/Abdominal GI/Abdominal exam: Present: normal bowel sounds, soft, no peritoneal signs. Absent: distended, tenderness - Extremities Exam Extremities exam: Present: warm, radial pulses palpable and symmetrical. Absent : calf tenderness, cyanotic, pedal edema - Neurological Exam Neurological exam: Present: CN II-XII intact, oriented X3, no focal deficits. Absent: pronater drift, facial droop, speech deficit - Skin Skin exam: Present: dry, intact - Patient Status Disposition: Home, Self-Care Condition: Fair Functional capacity at discharge: independent ambulation Overall status at discharge: patient is back to baseline - Discharge Instructions Instructions: Vertigo (GEN), Diabetes Mellitus Type 2 in Adults (DC), Peripheral Vascular Disorders (DC), Chronic Hypertension (DC) Follow Up With: Maggie Navarro MD [Primary Care Provider] - (Follow up has been requested , our offices will call you with an appointment time and date. ) Deng Cardenas MD [Partnered Physician] - (Your appointment has been requested. Our offices will call you with an appointment time and date) - Diet and Activity Activity: resume usual activities as tolerated Diet: low fat, low cholesterol
== END 2017-12-08 16:05 | disposition home or self-care (01) | DRG 69 ==
LOC: 3BNU 01:40 → EMEROO 01:40 → SUATTDRO 04:02 → 3BNU 04:19
PROVIDERS: ADMIT Pediatrics; ATTEND Family Medicine